=== PATIENT | male | born 1935 | race Caucasian/White ===

== ENCOUNTER 2017-11-12 10:11 | Inpatient (IN) | payer OTHER, MEDICARE ==
[2017-11-12] MEDS: ASPIRIN 81 MG ENTERIC TAB PO (09:00)
[2017-11-12] MEDS: CLOPIDOGREL 75 MG TAB PO (09:00)
[~2017-11-12 10:11] MED LIST: amLODIPine 5 MG TAB PO
[2017-11-12 10:55] LABS: ABG BASE EXCESS -2.1 (-2.0-2.0); ABG HCO3 23.5 MEQ/L (22.0-26.0); ABG O2 SATURATION 97.5 % (95.0-99.0); ABG PARTIAL PRESSURE CO2 43.7 mmHg (35.0-45.0); ABG PARTIAL PRESSURE O2 103.1 mmHg (75.0-100.0); ABG STANDARD HCO3 22.7 MEQ/L (22.0-26.0); ABG TOTAL CO2 24.9 MEQ/L (23.0-31.0); ABG pH (ARTERIAL) 7.349 UNITS (7.350-7.450)
[2017-11-12 11:04] LABS: BASO # 0.1 10^3/uL (0.0-0.2); BASO % 0.5 % (0.0-1.0); EOS % 0.3 % (0.0-3.0); HEMOGLOBIN 11.3 g/dl (14.0-18.0); IMMATURE GRANULOCYTE # 0.1 10^3/uL (0-0); IMMATURE GRANULOCYTE % 0.7 % (0-0); LYMPH # 0.5 10^3/uL (1.5-4.5); LYMPH % 4.1 % (24.0-44.0); MEAN CORPUSCULAR HGB CONC 31.4 g/dl (32.0-36.5); MEAN CORPUSCULAR VOLUME 98.9 fl (80.0-96.0); MONO # 0.7 10^3/uL (0.0-0.8); MONO % 6.6 % (0.0-5.0); NEUTROPHILS # 9.5 10^3/uL (1.8-7.7); NEUTROPHILS % 87.8 % (36.0-66.0); PLATELET COUNT, AUTOMATED 245 10^3/uL (150-450); RED BLOOD COUNT 3.64 10^6/uL (4.30-6.10); RED CELL DISTRIBUTION WIDTH 15.5 % (11.5-14.5); WHITE BLOOD COUNT 10.9 10^3/uL (4.0-10.0)
[2017-11-12 11:15] LABS: INR 0.97
[2017-11-12 11:25] LABS: ALBUMIN 3.3 GM/DL (3.2-5.2); ALBUMIN/GLOBULIN RATIO 0.94 (1.00-1.93); ALKALINE PHOSPHATASE 67 U/L (45-117); ALT/SGPT 16 U/L (12-78); ANION GAP 8 MEQ/L (8-16); AST/SGOT 19 U/L (7-37); BILIRUBIN,DIRECT 0.3 MG/DL (0.0-0.2); BILIRUBIN,TOTAL 0.8 MG/DL (0.2-1.0); BLOOD UREA NITROGEN 18 MG/DL (7-18); CALCIUM LEVEL 8.7 MG/DL (8.8-10.2); CARBON DIOXIDE LEVEL 30 MEQ/L (21-32); CHLORIDE LEVEL 106 MEQ/L (98-107); CREATININE FOR GFR 1.23 MG/DL (0.70-1.30); GLOMERULAR FILTRATION RATE 59.7 (>35); GLUCOSE, FASTING 328 MG/DL (83-110); POTASSIUM SERUM 4.8 MEQ/L (3.5-5.1); SODIUM LEVEL 144 MEQ/L (136-145); TOTAL PROTEIN 6.8 GM/DL (6.4-8.2); TROPONIN I 0.05 NG/ML (< 0.10)
[2017-11-12 11:27] LABS: LACTIC ACID SEPSIS PROTOCOL 2.4 MMOL/L (0.4-2.0)
[2017-11-12 11:33] LABS: CK-MB VALUE MASS 2.1 NG/ML (0.0-3.6); CPK CREATINE PHOSPHOKINASE 78 U/L (39-308); MB/CK RELATIVE INDEX 2.69 (< OR =4); NT-PRO BNP 8765 PG/ML (<450)
[2017-11-12] MEDS ORDERED: ACETAMINOPHEN TAB 650MG DOSE (2X325MG) PO (13:45)
[2017-11-12] MEDS ORDERED: DEXTROSE 50% 50 ML SYRINGE IV (14:15)
[2017-11-12] MEDS ORDERED: GLUCAGON FOR INJ 1 MG VIAL (J1610) SC (14:15)
[2017-11-12] MEDS ORDERED: GLUCOSE 4 GM CHEW TABLET PO (14:15)
[2017-11-12] MEDS: VANCOMYCIN HCL 1,000 MG, VIAL MATE ADAPTER 1 EACH in D5W 250 ML IV (14:34)
[2017-11-12] MEDS ORDERED: HumaLOG INSULIN (NovoLOG) PER UNIT As Ordered (15:07)
[2017-11-12] MEDS ORDERED: ALBUTEROL SULFATE 2.5 MG/0.5 ML INH NEB SOLN As Ordered (15:08)
[2017-11-12] MEDS: HumaLOG INSULIN (NovoLOG) PER UNIT SC ×2 (15:10→17:30)
[2017-11-12 15:11] LABS: BEDSIDE GLUCOSE 275 MG/DL (83-110)
[2017-11-12] MEDS: ALBUTEROL SULFATE 2.5 MG/0.5 ML INH NEB SOLN INH (15:15)
[2017-11-12] MEDS ORDERED: LR 1,000 ML IV (15:15)
[2017-11-12] MEDS: PYRIDOSTIGMINE 60 MG TAB PO ×2 (16:00→22:04)
[2017-11-12] MEDS: LIDOCAINE 1% SDV INJ 30 ML VIAL As Ordered (16:14)
[2017-11-12] MEDS ORDERED: LIDOCAINE 2% INJ 100 MG/5 ML SDV (FOR ANES.) As Ordered (16:29)
[2017-11-12] MEDS ORDERED: PROPOFOL 200 MG/20 ML VIAL As Ordered ×2 (16:31→16:34)
[2017-11-12] MEDS: ISOVUE-300 61% 50ML VIAL (Q9967) As Ordered (17:00)
[2017-11-12] MEDS: HumuLIN (NovoLIN)70/30 INSULIN INJ PER UNIT SC (17:30)
[2017-11-12] MEDS: VANCOMYCIN 1000 MG/20 ML VIAL (J3370) As Ordered (17:35)
[2017-11-12] MEDS: MUPIROCIN 2% OINT 22 GM TUBE As Ordered (17:51)
[2017-11-12] MEDS: BACITRACIN OINT 30GM As Ordered (18:34)
[2017-11-12] MEDS: LR 1,000 ML IV (19:30)
[2017-11-12] MEDS ORDERED: ONDANSETRON 4MG/2ML VIAL (J2405) IV (19:30)
[2017-11-12] MEDS ORDERED: fentaNYL 100 MCG/2 ML INJECTION (J3010) IV (19:30)
[2017-11-12] MEDS: ASCORBIC ACID 250 MG TAB PO (22:04)
[2017-11-12] MEDS: LOSARTAN 50 MG TAB PO (22:04)
[2017-11-12 22:18] LABS: BEDSIDE GLUCOSE 129 MG/DL (83-110)
[2017-11-13 05:23] LABS: ANION GAP 6 MEQ/L (8-16); BLOOD UREA NITROGEN 23 MG/DL (7-18); CALCIUM LEVEL 8.4 MG/DL (8.8-10.2); CARBON DIOXIDE LEVEL 31 MEQ/L (21-32); CHLORIDE LEVEL 109 MEQ/L (98-107); GLOMERULAR FILTRATION RATE > 60.0 (>35); GLUCOSE, FASTING 194 MG/DL (83-110); POTASSIUM SERUM 4.3 MEQ/L (3.5-5.1); SODIUM LEVEL 146 MEQ/L (136-145)
[2017-11-13] MEDS: ASCORBIC ACID 250 MG TAB PO (09:07)
[2017-11-13] MEDS: CLOPIDOGREL 75 MG TAB PO (09:07)
[2017-11-13] MEDS: HumaLOG INSULIN (NovoLOG) PER UNIT SC ×3 (09:07→17:30)
[2017-11-13] MEDS: SPIRONOLACTONE 25 MG TAB PO (09:07)
[2017-11-13] MEDS: ASPIRIN 81 MG ENTERIC TAB PO (09:07)
[2017-11-13] MEDS: HumuLIN (NovoLIN)70/30 INSULIN INJ PER UNIT SC ×2 (09:07→18:00)
[2017-11-13] MEDS: PYRIDOSTIGMINE 60 MG TAB PO ×3 (09:07→20:04)
[2017-11-13] MEDS ORDERED: PROPOFOL 500 MG/50 ML VIAL As Ordered (09:57)
[2017-11-13] MEDS ORDERED: fentaNYL 100 MCG/2 ML INJECTION (J3010) As Ordered (09:57)
[2017-11-13] MEDS ORDERED: MIDAZOLAM INJ 2 MG/2 ML VIAL (J2250) As Ordered (09:57)
[2017-11-13 12:07] LABS: BEDSIDE GLUCOSE 211 MG/DL (83-110)
[2017-11-13] MEDS ORDERED: LISINOPRIL 10 MG TAB PO (13:45)
[2017-11-13] MEDS ORDERED: amLODIPine 5 MG TAB PO (13:45)
[2017-11-13] MEDS: CHLORTHALIDONE 12.5MG PER 1/2 TABLET PO (14:29)
[2017-11-13] MEDS: LISINOPRIL 10 MG TAB PO (14:30)
[2017-11-13] MEDS: amLODIPine 10 MG TAB PO (14:30)
[2017-11-13] MEDS: POLYVINYL ALCOHOL OPHTH SOLN 15 ML(LIQUITEARS) OU ×2 (16:32→20:04)
[2017-11-13 17:12] LABS: BEDSIDE GLUCOSE 111 MG/DL (83-110)
[2017-11-14] MEDS: HumaLOG INSULIN (NovoLOG) PER UNIT SC ×3 (08:10→17:30)
[2017-11-14 08:16] LABS: BEDSIDE GLUCOSE 84 MG/DL (83-110)
[2017-11-14] MEDS: ASPIRIN 81 MG ENTERIC TAB PO (09:32)
[2017-11-14] MEDS: CLOPIDOGREL 75 MG TAB PO (09:33)
[2017-11-14] MEDS: LISINOPRIL 10 MG TAB PO (09:33)
[2017-11-14] MEDS: amLODIPine 10 MG TAB PO (09:33)
[2017-11-14] MEDS: MECLIZINE 25 MG TABLET PO (09:33)
[2017-11-14] MEDS: CHLORTHALIDONE 12.5MG PER 1/2 TABLET PO (09:33)
[2017-11-14] MEDS: PYRIDOSTIGMINE 60 MG TAB PO ×3 (09:33→19:24)
[2017-11-14] MEDS: POLYVINYL ALCOHOL OPHTH SOLN 15 ML(LIQUITEARS) OU ×4 (09:34→19:23)
[2017-11-14] MEDS: HumuLIN (NovoLIN)70/30 INSULIN INJ PER UNIT SC ×2 (09:34→17:30)
[2017-11-14 11:50] LABS: BEDSIDE GLUCOSE 203 MG/DL (83-110)
[2017-11-14 17:16] LABS: BEDSIDE GLUCOSE 65 MG/DL (83-110)
[2017-11-15] MEDS: HumaLOG INSULIN (NovoLOG) PER UNIT SC ×3 (07:30→17:13)
[2017-11-15 07:31] LABS: BEDSIDE GLUCOSE 134 MG/DL (83-110)
[2017-11-15] MEDS: CLOPIDOGREL 75 MG TAB PO (10:10)
[2017-11-15] MEDS: LISINOPRIL 10 MG TAB PO (10:10)
[2017-11-15] MEDS: CHLORTHALIDONE 12.5MG PER 1/2 TABLET PO (10:10)
[2017-11-15] MEDS: PYRIDOSTIGMINE 60 MG TAB PO ×3 (10:11→20:05)
[2017-11-15] MEDS: amLODIPine 10 MG TAB PO (10:11)
[2017-11-15] MEDS: ASPIRIN 81 MG ENTERIC TAB PO (10:11)
[2017-11-15] MEDS: POLYVINYL ALCOHOL OPHTH SOLN 15 ML(LIQUITEARS) OU ×4 (10:13→20:05)
[2017-11-15] MEDS: HumuLIN (NovoLIN)70/30 INSULIN INJ PER UNIT SC ×2 (10:13→17:24)
[2017-11-15 12:22] LABS: BEDSIDE GLUCOSE 144 MG/DL (83-110)
[2017-11-15 17:19] LABS: BEDSIDE GLUCOSE 101 MG/DL (83-110)
[2017-11-16 06:50] LABS: BEDSIDE GLUCOSE 101 MG/DL (83-110)
[2017-11-16] MEDS: HumaLOG INSULIN (NovoLOG) PER UNIT SC ×3 (08:24→17:35)
[2017-11-16] MEDS: HumuLIN (NovoLIN)70/30 INSULIN INJ PER UNIT SC ×2 (08:24→17:35)
[2017-11-16] MEDS: ASPIRIN 81 MG ENTERIC TAB PO (08:25)
[2017-11-16] MEDS: CHLORTHALIDONE 12.5MG PER 1/2 TABLET PO (08:25)
[2017-11-16] MEDS: amLODIPine 10 MG TAB PO (08:25)
[2017-11-16] MEDS: PYRIDOSTIGMINE 60 MG TAB PO ×3 (08:25→20:48)
[2017-11-16] MEDS: POLYVINYL ALCOHOL OPHTH SOLN 15 ML(LIQUITEARS) OU ×4 (08:25→20:48)
[2017-11-16] MEDS: LISINOPRIL 10 MG TAB PO (08:25)
[2017-11-16] MEDS: CLOPIDOGREL 75 MG TAB PO (08:25)
[2017-11-16 11:48] LABS: BEDSIDE GLUCOSE 100 MG/DL (83-110)
[2017-11-16 20:27] LABS: BEDSIDE GLUCOSE 76 MG/DL (83-110)
[2017-11-17 03:12] LABS: BEDSIDE GLUCOSE 122 MG/DL (83-110)
[2017-11-17 08:12] LABS: BEDSIDE GLUCOSE 165 MG/DL (83-110)
[2017-11-17] MEDS: HumaLOG INSULIN (NovoLOG) PER UNIT SC (08:19)
[2017-11-17] MEDS: HumuLIN (NovoLIN)70/30 INSULIN INJ PER UNIT SC (08:20)
[2017-11-17 08:27] LABS: BEDSIDE GLUCOSE 115 MG/DL (83-110)
[2017-11-17] MEDS: PYRIDOSTIGMINE 60 MG TAB PO (09:16)
[2017-11-17] MEDS: LISINOPRIL 10 MG TAB PO (09:17)
[2017-11-17] MEDS: CHLORTHALIDONE 12.5MG PER 1/2 TABLET PO (09:17)
[2017-11-17] MEDS: CLOPIDOGREL 75 MG TAB PO (09:17)
[2017-11-17] MEDS: ASPIRIN 81 MG ENTERIC TAB PO (09:17)
[2017-11-17] MEDS: amLODIPine 10 MG TAB PO (09:17)
[2017-11-17] MEDS: POLYVINYL ALCOHOL OPHTH SOLN 15 ML(LIQUITEARS) OU (09:17)
[2017-11-17] MEDS: LOMOTIL 2.5MG/0.025MG TABLET PO (10:38)
== END 2017-11-17 12:15 | disposition home health service (06) | DRG 242 ==
LOC: M MS5PR 11-13 16:41 → M ED 10:11 → M ED INP 13:40 → M PCU 19:45
PROC: 0JH606Z Insertion of Pacemaker, Dual Chamber into Chest Subcutaneous Tissue and Fascia, Open Approach (ICD-10-PCS; principal; 2017-11-12 12:58)
PROC: 02HK3JZ Insertion of Pacemaker Lead into Right Ventricle, Percutaneous Approach (ICD-10-PCS; 2017-11-12 12:58)
PROC: 02H63JZ Insertion of Pacemaker Lead into Right Atrium, Percutaneous Approach (ICD-10-PCS; 2017-11-12 12:58)
DX: I44.2 Atrioventricular block, complete (principal); I50.33 Acute on chronic diastolic (congestive) heart failure; I11.0 Hypertensive heart disease with heart failure; E78.5 Hyperlipidemia, unspecified; E11.40 Type 2 diabetes mellitus with diabetic neuropathy, unspecified; G70.00 Myasthenia gravis without (acute) exacerbation; L57.0 Actinic keratosis; E53.8 Deficiency of other specified B group vitamins; E87.6 Hypokalemia; N39.3 Stress incontinence (female) (male); H26.9 Unspecified cataract; E66.3 Overweight; Z87.891 Personal history of nicotine dependence; Z85.46 Personal history of malignant neoplasm of prostate; Z79.82 Long term (current) use of aspirin; Z79.4 Long term (current) use of insulin; Z95.2 Presence of prosthetic heart valve; Z85.828 Personal history of other malignant neoplasm of skin; Z79.899 Other long term (current) drug therapy; Z68.27 Body mass index [BMI] 27.0-27.9, adult

== ENCOUNTER 2017-12-06 09:49 | Inpatient (IN) | payer OTHER, MEDICARE ==
[~2017-12-06 09:49] MED LIST changes: +LEVEMIR (INSULIN DETEMIR) 1 UNITS/0.01ML SC; -amLODIPine 5 MG TAB PO
[2017-12-06 10:55] LABS: BASO # 0.1 10^3/uL (0.0-0.2); BASO % 0.3 % (0.0-1.0); EOS # 0.3 10^3/uL (0.0-0.50); EOS % 2.2 % (0.0-3.0); HEMATOCRIT 35.6 % (42.0-52.0); HEMOGLOBIN 11.4 g/dl (14.0-18.0); IMMATURE GRANULOCYTE # 0.1 10^3/uL (0-0); IMMATURE GRANULOCYTE % 0.5 % (0-0); LYMPH # 0.7 10^3/uL (1.5-4.5); LYMPH % 4.6 % (24.0-44.0); MEAN CORPUSCULAR HEMOGLOBIN 30.1 pg (27.0-33.0); MEAN CORPUSCULAR VOLUME 93.9 fl (80.0-96.0); MONO # 1.1 10^3/uL (0.0-0.8); MONO % 7.1 % (0.0-5.0); NEUTROPHILS # 12.5 10^3/uL (1.8-7.7); NEUTROPHILS % 85.3 % (36.0-66.0); PLATELET COUNT, AUTOMATED 293 10^3/uL (150-450); RED BLOOD COUNT 3.79 10^6/uL (4.30-6.10); RED CELL DISTRIBUTION WIDTH 14.1 % (11.5-14.5); WHITE BLOOD COUNT 14.7 10^3/uL (4.0-10.0)
[2017-12-06 11:07] LABS: ANION GAP 7 MEQ/L (8-16); BLOOD UREA NITROGEN 28 MG/DL (7-18); CALCIUM LEVEL 9.5 MG/DL (8.8-10.2); CARBON DIOXIDE LEVEL 33 MEQ/L (21-32); CHLORIDE LEVEL 99 MEQ/L (98-107); CPK CREATINE PHOSPHOKINASE 62 U/L (39-308); CREATININE FOR GFR 1.63 MG/DL (0.70-1.30); GLOMERULAR FILTRATION RATE 43.1 (>35); POTASSIUM SERUM 4.3 MEQ/L (3.5-5.1); SODIUM LEVEL 139 MEQ/L (136-145); TROPONIN I < 0.02 NG/ML (< 0.10)
[2017-12-06 11:13] LABS: CK-MB VALUE MASS 1.7 NG/ML (0.0-3.6); MB/CK RELATIVE INDEX 2.74 (< OR =4); NT-PRO BNP 1943 PG/ML (<450); THYROID STIMULATING HORMONE 0.551 uIU/ML (0.358-3.740)
[2017-12-06 11:25] LABS: GLUCOSE, FASTING 487 MG/DL (83-110)
[2017-12-06 11:33] LABS: ABG BASE EXCESS 5.5 (-2.0-2.0); ABG HCO3 30.4 MEQ/L (22.0-26.0); ABG O2 SATURATION 92.6 % (95.0-99.0); ABG PARTIAL PRESSURE CO2 45.9 mmHg (35.0-45.0); ABG PARTIAL PRESSURE O2 63.3 mmHg (75.0-100.0); ABG STANDARD HCO3 29.3 MEQ/L (22.0-26.0); ABG TOTAL CO2 31.8 MEQ/L (23.0-31.0); ABG pH (ARTERIAL) 7.439 UNITS (7.350-7.450)
[2017-12-06] MEDS: HumuLIN R (REGULAR) INSULIN (NovoLIN R) **100U/ML** PER UNIT SC (12:19)
[2017-12-06 12:22] LABS: BEDSIDE GLUCOSE 512 MG/DL (83-110)
[2017-12-06 13:17] LABS: LACTIC ACID SEPSIS PROTOCOL 2.1 MMOL/L (0.4-2.0)
[2017-12-06] MEDS: AZITHROMYCIN INJ 500 MG, VIAL MATE ADAPTER 1 EACH in D5W 250 ML IV (14:03)
[2017-12-06] MEDS ORDERED: ONDANSETRON 4MG/2ML VIAL (J2405) IV (14:30)
[2017-12-06] MEDS: NS 1,000 ML IV (14:55)
[2017-12-06] MEDS: CEFTRIAXONE SOD 2 GM in APPROPRIATE DILUENT 1 EA IV (14:55)
[2017-12-06] MEDS ORDERED: DEXTROSE 50% 50 ML SYRINGE IV (15:00)
[2017-12-06] MEDS ORDERED: GLUCAGON FOR INJ 1 MG VIAL (J1610) SC (15:00)
[2017-12-06] MEDS ORDERED: GLUCOSE 4 GM CHEW TABLET PO (15:00)
[2017-12-06] MEDS: LEVEMIR (INSULIN DETEMIR) 1 UNITS/0.01ML SC (15:04)
[2017-12-06 15:15] LABS: BEDSIDE GLUCOSE 471 MG/DL (83-110)
[2017-12-06] MEDS ORDERED: IPRATROPIUM 0.5MG/ALBUTEROL 2.5MG INH SOL UD 3ML (DUONEB)(J7620) NEB (15:45)
[2017-12-06] MEDS: PYRIDOSTIGMINE 60 MG TAB PO ×2 (16:00→20:13)
[2017-12-06 16:44] LABS: BEDSIDE GLUCOSE 357 MG/DL (83-110)
[2017-12-06] MEDS ORDERED: POLYVINYL ALCOHOL OPHTH SOLN 15 ML(LIQUITEARS) OU (17:00)
[2017-12-06 17:10] LABS: ESTIMATED AVERAGE GLUCOSE 194 MG/DL (60-110); HEMOGLOBIN A1c 8.4 %
[2017-12-06] MEDS: MECLIZINE 25 MG TABLET PO (18:24)
[2017-12-06] MEDS: amLODIPine 5 MG TAB PO (18:24)
[2017-12-06] MEDS: ASPIRIN 81 MG ENTERIC TAB PO (18:24)
[2017-12-06] MEDS: CLOPIDOGREL 75 MG TAB PO (18:25)
[2017-12-06] MEDS: HumaLOG INSULIN (NovoLOG) PER UNIT SC ×2 (18:27→20:13)
[2017-12-06] MEDS: VANCOMYCIN HCL 1,000 MG, VIAL MATE ADAPTER 1 EACH in D5W 250 ML IV ×2 (18:29→19:51)
[2017-12-06] MEDS: NYSTATIN 500,000 U/5 ML SUSP UDC SS ×3 (18:30→20:39)
[2017-12-06 20:05] LABS: CPK CREATINE PHOSPHOKINASE 69 U/L (39-308); TROPONIN I < 0.02 NG/ML (< 0.10)
[2017-12-06 20:06] LABS: ALBUMIN 2.8 GM/DL (3.2-5.2); ALBUMIN/GLOBULIN RATIO 0.57 (1.00-1.93); ALKALINE PHOSPHATASE 91 U/L (45-117); ALT/SGPT 10 U/L (12-78); ANION GAP 4 MEQ/L (8-16); AST/SGOT 10 U/L (7-37); BILIRUBIN,TOTAL 0.2 MG/DL (0.2-1.0); BLOOD UREA NITROGEN 30 MG/DL (7-18); CALCIUM LEVEL 9.6 MG/DL (8.8-10.2); CARBON DIOXIDE LEVEL 34 MEQ/L (21-32); CHLORIDE LEVEL 102 MEQ/L (98-107); CK-MB VALUE MASS 1.3 NG/ML (0.0-3.6); CREATININE FOR GFR 1.56 MG/DL (0.70-1.30); GLOMERULAR FILTRATION RATE 45.4 (>35); GLUCOSE, FASTING 305 MG/DL (70-100); MB/CK RELATIVE INDEX 1.88 (< OR =4); POTASSIUM SERUM 4.1 MEQ/L (3.5-5.1); SODIUM LEVEL 140 MEQ/L (136-145); TOTAL PROTEIN 7.7 GM/DL (6.4-8.2)
[2017-12-06 20:06] LABS: LACTIC ACID SEPSIS PROTOCOL 1.8 MMOL/L (0.4-2.0)
[2017-12-06 20:13] LABS: BEDSIDE GLUCOSE 402 MG/DL (83-110)
[2017-12-06] MEDS: POLYVINYL ALCOHOL OPHTH SOLN 15 ML(LIQUITEARS) OU (20:13)
[2017-12-06] MEDS: HEPARIN SOD (PORCINE) 5000 UNITS/ML VIAL SQ ×2 (20:14→20:39)
[2017-12-06] MEDS: IPRATROPIUM 0.5MG/ALBUTEROL 2.5MG INH SOL UD 3ML (DUONEB)(J7620) NEB (21:08)
[2017-12-07] MEDS: CEFEPIME HCL 2 GM in APPROPRIATE DILUENT 1 EA IV ×2 (02:21→15:16)
[2017-12-07 02:34] LABS: CK-MB VALUE MASS 1.7 NG/ML (0.0-3.6); CPK CREATINE PHOSPHOKINASE 70 U/L (39-308); MB/CK RELATIVE INDEX 2.42 (< OR =4); TROPONIN I < 0.02 NG/ML (< 0.10)
[2017-12-07] MEDS: IPRATROPIUM 0.5MG/ALBUTEROL 2.5MG INH SOL UD 3ML (DUONEB)(J7620) NEB ×4 (03:59→20:35)
[2017-12-07 06:10] LABS: BASO % 0.3 % (0.0-1.0); EOS # 0.6 10^3/uL (0.0-0.50); HEMATOCRIT 33.9 % (42.0-52.0); HEMOGLOBIN 10.8 g/dl (14.0-18.0); IMMATURE GRANULOCYTE # 0.1 10^3/uL (0-0); IMMATURE GRANULOCYTE % 0.6 % (0-0); LYMPH % 8.9 % (24.0-44.0); MEAN CORPUSCULAR HEMOGLOBIN 29.9 pg (27.0-33.0); MEAN CORPUSCULAR HGB CONC 31.9 g/dl (32.0-36.5); MEAN CORPUSCULAR VOLUME 93.9 fl (80.0-96.0); MONO % 8.9 % (0.0-5.0); NEUTROPHILS # 8.9 10^3/uL (1.8-7.7); NEUTROPHILS % 76.3 % (36.0-66.0); PLATELET COUNT, AUTOMATED 275 10^3/uL (150-450); RED BLOOD COUNT 3.61 10^6/uL (4.30-6.10); RED CELL DISTRIBUTION WIDTH 14.2 % (11.5-14.5); WHITE BLOOD COUNT 11.7 10^3/uL (4.0-10.0)
[2017-12-07 06:37] LABS: ALBUMIN 2.5 GM/DL (3.2-5.2); ALBUMIN/GLOBULIN RATIO 0.54 (1.00-1.93); ALKALINE PHOSPHATASE 79 U/L (45-117); ALT/SGPT 10 U/L (12-78); ANION GAP 7 MEQ/L (8-16); AST/SGOT 10 U/L (7-37); BILIRUBIN,TOTAL 0.4 MG/DL (0.2-1.0); BLOOD UREA NITROGEN 32 MG/DL (7-18); C REACTIVE PROTEIN QUANTITATIV 8.05 MG/DL (0.00-0.30); CALCIUM LEVEL 9.1 MG/DL (8.8-10.2); CARBON DIOXIDE LEVEL 31 MEQ/L (21-32); CHLORIDE LEVEL 102 MEQ/L (98-107); CREATININE FOR GFR 1.52 MG/DL (0.70-1.30); GLOMERULAR FILTRATION RATE 46.7 (>35); GLUCOSE, FASTING 174 MG/DL (70-100); POTASSIUM SERUM 3.8 MEQ/L (3.5-5.1); SODIUM LEVEL 140 MEQ/L (136-145); TOTAL PROTEIN 7.1 GM/DL (6.4-8.2)
[2017-12-07] MEDS: HEPARIN SOD (PORCINE) 5000 UNITS/ML VIAL SQ ×2 (09:00→21:47)
[2017-12-07] MEDS ORDERED: LEVEMIR (INSULIN DETEMIR) 1 UNITS/0.01ML SC (09:00)
[2017-12-07] MEDS: VANCOMYCIN HCL 1,000 MG, VIAL MATE ADAPTER 1 EACH in D5W 250 ML IV (09:05)
[2017-12-07] MEDS: LEVEMIR (INSULIN DETEMIR) 1 UNITS/0.01ML SC (09:06)
[2017-12-07] MEDS: POLYVINYL ALCOHOL OPHTH SOLN 15 ML(LIQUITEARS) OU ×4 (09:06→21:47)
[2017-12-07] MEDS: HumaLOG INSULIN (NovoLOG) PER UNIT SC ×4 (09:06→21:00)
[2017-12-07] MEDS: PYRIDOSTIGMINE 60 MG TAB PO ×3 (09:07→21:47)
[2017-12-07] MEDS: CLOPIDOGREL 75 MG TAB PO (09:07)
[2017-12-07] MEDS: NYSTATIN 500,000 U/5 ML SUSP UDC SS ×4 (09:07→21:47)
[2017-12-07] MEDS: ASPIRIN 81 MG ENTERIC TAB PO (09:07)
[2017-12-07 10:26] LABS: ESTIMATED AVERAGE GLUCOSE 197 MG/DL (60-110); HEMOGLOBIN A1c 8.5 %
[2017-12-07 10:38] LABS: CK-MB VALUE MASS 1.4 NG/ML (0.0-3.6); CPK CREATINE PHOSPHOKINASE 53 U/L (39-308); MB/CK RELATIVE INDEX 2.64 (< OR =4); TROPONIN I < 0.02 NG/ML (< 0.10)
[2017-12-07 11:37] LABS: OSMOLALITY URINE 568 MOSM/KG (500-800)
[2017-12-07 12:02] LABS: CHLORIDE,RANDOM URINE 31 MEQ/L; SODIUM,RANDOM URINE 24 MEQ/L; TOTAL PROTEIN,RANDOM URINE 161.3 MG/DL (0.0-12.0)
[2017-12-07 13:23] LABS: BEDSIDE GLUCOSE 249 MG/DL (83-110)
[2017-12-07] MEDS: AZITHROMYCIN INJ 500 MG, VIAL MATE ADAPTER 1 EACH in D5W 250 ML IV (13:27)
[2017-12-07 17:02] LABS: BEDSIDE GLUCOSE 98 MG/DL (83-110)
[2017-12-07 21:08] LABS: BEDSIDE GLUCOSE 182 MG/DL (83-110)
[2017-12-07] MEDS: NS 1,000 ML IV (21:47)
[2017-12-08] MEDS: IPRATROPIUM 0.5MG/ALBUTEROL 2.5MG INH SOL UD 3ML (DUONEB)(J7620) NEB ×4 (02:00→21:25)
[2017-12-08] MEDS: CEFEPIME HCL 2 GM in APPROPRIATE DILUENT 1 EA IV ×2 (02:20→14:31)
[2017-12-08 06:33] LABS: BASO % 0.5 % (0.0-1.0); EOS # 0.5 10^3/uL (0.0-0.50); EOS % 6.6 % (0.0-3.0); HEMATOCRIT 32.4 % (42.0-52.0); HEMOGLOBIN 10.4 g/dl (14.0-18.0); IMMATURE GRANULOCYTE # 0.1 10^3/uL (0-0); IMMATURE GRANULOCYTE % 0.9 % (0-0); LYMPH # 0.9 10^3/uL (1.5-4.5); LYMPH % 11.1 % (24.0-44.0); MEAN CORPUSCULAR HEMOGLOBIN 30.2 pg (27.0-33.0); MEAN CORPUSCULAR HGB CONC 32.1 g/dl (32.0-36.5); MEAN CORPUSCULAR VOLUME 94.2 fl (80.0-96.0); MONO # 0.7 10^3/uL (0.0-0.8); MONO % 8.3 % (0.0-5.0); NEUTROPHILS # 5.8 10^3/uL (1.8-7.7); NEUTROPHILS % 72.6 % (36.0-66.0); PLATELET COUNT, AUTOMATED 249 10^3/uL (150-450); RED BLOOD COUNT 3.44 10^6/uL (4.30-6.10); WHITE BLOOD COUNT 7.9 10^3/uL (4.0-10.0)
[2017-12-08 06:54] LABS: ALBUMIN 2.2 GM/DL (3.2-5.2); ALBUMIN/GLOBULIN RATIO 0.51 (1.00-1.93); ALKALINE PHOSPHATASE 72 U/L (45-117); ALT/SGPT 9 U/L (12-78); ANION GAP 5 MEQ/L (8-16); AST/SGOT 11 U/L (7-37); BILIRUBIN,TOTAL 0.4 MG/DL (0.2-1.0); BLOOD UREA NITROGEN 29 MG/DL (7-18); C REACTIVE PROTEIN QUANTITATIV 5.11 MG/DL (0.00-0.30); CALCIUM LEVEL 8.7 MG/DL (8.8-10.2); CARBON DIOXIDE LEVEL 28 MEQ/L (21-32); CHLORIDE LEVEL 107 MEQ/L (98-107); CREATININE FOR GFR 1.19 MG/DL (0.70-1.30); GLOMERULAR FILTRATION RATE > 60.0 (>35); GLUCOSE, FASTING 226 MG/DL (70-100); MAGNESIUM LEVEL 1.9 MG/DL (1.8-2.4); POTASSIUM SERUM 3.8 MEQ/L (3.5-5.1); SODIUM LEVEL 140 MEQ/L (136-145); TOTAL PROTEIN 6.5 GM/DL (6.4-8.2)
[2017-12-08] MEDS: NYSTATIN 500,000 U/5 ML SUSP UDC SS ×4 (08:32→21:09)
[2017-12-08] MEDS: HumaLOG INSULIN (NovoLOG) PER UNIT SC ×4 (08:33→21:10)
[2017-12-08] MEDS: CLOPIDOGREL 75 MG TAB PO (08:33)
[2017-12-08] MEDS: ASPIRIN 81 MG ENTERIC TAB PO (08:33)
[2017-12-08] MEDS: HEPARIN SOD (PORCINE) 5000 UNITS/ML VIAL SQ ×2 (08:33→21:10)
[2017-12-08] MEDS: VANCOMYCIN HCL 1,000 MG, VIAL MATE ADAPTER 1 EACH in D5W 250 ML IV (08:34)
[2017-12-08] MEDS: LEVEMIR (INSULIN DETEMIR) 1 UNITS/0.01ML SC (08:34)
[2017-12-08] MEDS: POLYVINYL ALCOHOL OPHTH SOLN 15 ML(LIQUITEARS) OU ×4 (08:35→21:10)
[2017-12-08] MEDS: PYRIDOSTIGMINE 60 MG TAB PO ×3 (08:49→21:09)
[2017-12-08] MEDS: NS 1,000 ML IV (10:32)
[2017-12-08] MEDS: LOPERAMIDE 2 MG CAP PO ×2 (10:32→14:33)
[2017-12-08 12:19] LABS: BEDSIDE GLUCOSE 417 MG/DL (83-110)
[2017-12-08] MEDS ORDERED: SLF 3 ML SYR IV (14:30)
[2017-12-08 17:12] LABS: BEDSIDE GLUCOSE 118 MG/DL (83-110)
[2017-12-08] MEDS: SLF 3 ML SYR IV (21:10)
[2017-12-08 22:05] LABS: BEDSIDE GLUCOSE 278 MG/DL (83-110)
[2017-12-09] MEDS: IPRATROPIUM 0.5MG/ALBUTEROL 2.5MG INH SOL UD 3ML (DUONEB)(J7620) NEB ×4 (01:14→21:08)
[2017-12-09] MEDS: CEFEPIME HCL 2 GM in APPROPRIATE DILUENT 1 EA IV (03:19)
[2017-12-09] MEDS: SLF 3 ML SYR IV ×3 (04:24→22:49)
[2017-12-09] MEDS: ACETAMINOPHEN TAB 650MG DOSE (2X325MG) PO (05:19)
[2017-12-09 07:24] LABS: BASO % 0.6 % (0.0-1.0); EOS # 0.5 10^3/uL (0.0-0.50); IMMATURE GRANULOCYTE # 0.1 10^3/uL (0-0); IMMATURE GRANULOCYTE % 0.8 % (0-0); LYMPH # 0.9 10^3/uL (1.5-4.5); LYMPH % 12.2 % (24.0-44.0); MEAN CORPUSCULAR HEMOGLOBIN 30.1 pg (27.0-33.0); MEAN CORPUSCULAR HGB CONC 32.3 g/dl (32.0-36.5); MEAN CORPUSCULAR VOLUME 93.4 fl (80.0-96.0); MONO # 0.7 10^3/uL (0.0-0.8); MONO % 9.4 % (0.0-5.0); PLATELET COUNT, AUTOMATED 235 10^3/uL (150-450); RED BLOOD COUNT 3.32 10^6/uL (4.30-6.10); RED CELL DISTRIBUTION WIDTH 13.9 % (11.5-14.5); WHITE BLOOD COUNT 7.1 10^3/uL (4.0-10.0)
[2017-12-09 07:59] LABS: ALBUMIN 2.2 GM/DL (3.2-5.2); ALBUMIN/GLOBULIN RATIO 0.54 (1.00-1.93); ALKALINE PHOSPHATASE 71 U/L (45-117); ALT/SGPT 12 U/L (12-78); ANION GAP 4 MEQ/L (8-16); AST/SGOT 12 U/L (7-37); BILIRUBIN,TOTAL 0.3 MG/DL (0.2-1.0); BLOOD UREA NITROGEN 17 MG/DL (7-18); C REACTIVE PROTEIN QUANTITATIV 3.46 MG/DL (0.00-0.30); CALCIUM LEVEL 8.4 MG/DL (8.8-10.2); CARBON DIOXIDE LEVEL 30 MEQ/L (21-32); CHLORIDE LEVEL 109 MEQ/L (98-107); CREATININE FOR GFR 0.95 MG/DL (0.70-1.30); GLOMERULAR FILTRATION RATE > 60.0 (>35); GLUCOSE, FASTING 139 MG/DL (70-100); MAGNESIUM LEVEL 1.8 MG/DL (1.8-2.4); POTASSIUM SERUM 3.7 MEQ/L (3.5-5.1); SODIUM LEVEL 143 MEQ/L (136-145); TOTAL PROTEIN 6.3 GM/DL (6.4-8.2); VANCOMYCIN LEVEL TROUGH 17.2 UG/ML (10.0-20.0)
[2017-12-09] MEDS: POLYVINYL ALCOHOL OPHTH SOLN 15 ML(LIQUITEARS) OU ×4 (08:42→22:48)
[2017-12-09] MEDS: VANCOMYCIN HCL 1,000 MG, VIAL MATE ADAPTER 1 EACH in D5W 250 ML IV (08:42)
[2017-12-09] MEDS: PYRIDOSTIGMINE 60 MG TAB PO ×3 (08:43→22:48)
[2017-12-09] MEDS: HEPARIN SOD (PORCINE) 5000 UNITS/ML VIAL SQ ×2 (08:43→22:56)
[2017-12-09] MEDS: CLOPIDOGREL 75 MG TAB PO (08:43)
[2017-12-09] MEDS: NYSTATIN 500,000 U/5 ML SUSP UDC SS ×4 (08:43→22:48)
[2017-12-09] MEDS: ASPIRIN 81 MG ENTERIC TAB PO (08:43)
[2017-12-09] MEDS: LEVEMIR (INSULIN DETEMIR) 1 UNITS/0.01ML SC (08:44)
[2017-12-09] MEDS: HumaLOG INSULIN (NovoLOG) PER UNIT SC ×4 (08:44→21:00)
[2017-12-09 11:56] LABS: BEDSIDE GLUCOSE 240 MG/DL (83-110)
[2017-12-09] MEDS: LOPERAMIDE 2 MG CAP PO ×2 (11:57→17:45)
[2017-12-09] MEDS: LevoFLOXacin 500 MG TABLET PO (14:55)
[2017-12-09] MEDS: amLODIPine 5 MG TAB PO (14:55)
[2017-12-09] MEDS: LISINOPRIL 5 MG TAB PO (14:56)
[2017-12-09 17:48] LABS: BEDSIDE GLUCOSE 74 MG/DL (83-110)
[2017-12-09 21:42] LABS: BEDSIDE GLUCOSE 236 MG/DL (83-110)
[2017-12-10] MEDS: IPRATROPIUM 0.5MG/ALBUTEROL 2.5MG INH SOL UD 3ML (DUONEB)(J7620) NEB ×3 (02:00→13:22)
[2017-12-10] MEDS: SLF 3 ML SYR IV ×3 (05:37→21:06)
[2017-12-10] MEDS: LevoFLOXacin 500 MG TABLET PO (05:37)
[2017-12-10 06:01] LABS: BASO # 0.1 10^3/uL (0.0-0.2); BASO % 0.6 % (0.0-1.0); EOS # 0.4 10^3/uL (0.0-0.50); EOS % 5.2 % (0.0-3.0); HEMATOCRIT 35.6 % (42.0-52.0); HEMOGLOBIN 11.5 g/dl (14.0-18.0); IMMATURE GRANULOCYTE # 0.1 10^3/uL (0-0); IMMATURE GRANULOCYTE % 1.2 % (0-0); LYMPH # 1.1 10^3/uL (1.5-4.5); LYMPH % 13.2 % (24.0-44.0); MEAN CORPUSCULAR HEMOGLOBIN 29.7 pg (27.0-33.0); MEAN CORPUSCULAR HGB CONC 32.3 g/dl (32.0-36.5); MONO # 0.9 10^3/uL (0.0-0.8); MONO % 11.5 % (0.0-5.0); NEUTROPHILS # 5.5 10^3/uL (1.8-7.7); NEUTROPHILS % 68.3 % (36.0-66.0); PLATELET COUNT, AUTOMATED 263 10^3/uL (150-450); RED BLOOD COUNT 3.87 10^6/uL (4.30-6.10)
[2017-12-10 06:20] LABS: ALBUMIN 2.3 GM/DL (3.2-5.2); ALKALINE PHOSPHATASE 73 U/L (45-117); ALT/SGPT 12 U/L (12-78); ANION GAP 7 MEQ/L (8-16); AST/SGOT 15 U/L (7-37); BILIRUBIN,TOTAL 0.3 MG/DL (0.2-1.0); BLOOD UREA NITROGEN 12 MG/DL (7-18); C REACTIVE PROTEIN QUANTITATIV 3.04 MG/DL (0.00-0.30); CARBON DIOXIDE LEVEL 29 MEQ/L (21-32); CHLORIDE LEVEL 108 MEQ/L (98-107); CREATININE FOR GFR 0.95 MG/DL (0.70-1.30); GLOMERULAR FILTRATION RATE > 60.0 (>35); GLUCOSE, FASTING 121 MG/DL (70-100); MAGNESIUM LEVEL 1.9 MG/DL (1.8-2.4); POTASSIUM SERUM 3.7 MEQ/L (3.5-5.1); SODIUM LEVEL 144 MEQ/L (136-145); TOTAL PROTEIN 6.9 GM/DL (6.4-8.2)
[2017-12-10] MEDS: HumaLOG INSULIN (NovoLOG) PER UNIT SC ×4 (07:30→21:00)
[2017-12-10] MEDS: ASPIRIN 81 MG ENTERIC TAB PO (09:07)
[2017-12-10] MEDS: LISINOPRIL 5 MG TAB PO (09:08)
[2017-12-10] MEDS: CLOPIDOGREL 75 MG TAB PO (09:08)
[2017-12-10] MEDS: NYSTATIN 500,000 U/5 ML SUSP UDC SS ×4 (09:09→21:06)
[2017-12-10] MEDS: LEVEMIR (INSULIN DETEMIR) 1 UNITS/0.01ML SC (09:09)
[2017-12-10] MEDS: PYRIDOSTIGMINE 60 MG TAB PO ×3 (09:09→21:06)
[2017-12-10] MEDS: amLODIPine 5 MG TAB PO (09:09)
[2017-12-10] MEDS: HEPARIN SOD (PORCINE) 5000 UNITS/ML VIAL SQ ×2 (09:09→21:00)
[2017-12-10] MEDS: POLYVINYL ALCOHOL OPHTH SOLN 15 ML(LIQUITEARS) OU ×4 (09:10→21:00)
[2017-12-10 16:39] LABS: BEDSIDE GLUCOSE 151 MG/DL (83-110)
[2017-12-10 20:55] LABS: BEDSIDE GLUCOSE 159 MG/DL (83-110)
[2017-12-11] MEDS: SLF 3 ML SYR IV (05:36)
[2017-12-11] MEDS: LevoFLOXacin 500 MG TABLET PO (06:01)
[2017-12-11 06:28] LABS: BASO % 0.4 % (0.0-1.0); EOS # 0.4 10^3/uL (0.0-0.50); EOS % 4.1 % (0.0-3.0); HEMATOCRIT 33.3 % (42.0-52.0); HEMOGLOBIN 10.8 g/dl (14.0-18.0); IMMATURE GRANULOCYTE # 0.1 10^3/uL (0-0); IMMATURE GRANULOCYTE % 1.2 % (0-0); LYMPH # 0.9 10^3/uL (1.5-4.5); LYMPH % 11.1 % (24.0-44.0); MEAN CORPUSCULAR HEMOGLOBIN 29.8 pg (27.0-33.0); MEAN CORPUSCULAR HGB CONC 32.4 g/dl (32.0-36.5); MONO # 0.9 10^3/uL (0.0-0.8); MONO % 10.4 % (0.0-5.0); NEUTROPHILS # 6.2 10^3/uL (1.8-7.7); NEUTROPHILS % 72.8 % (36.0-66.0); PLATELET COUNT, AUTOMATED 228 10^3/uL (150-450); RED BLOOD COUNT 3.62 10^6/uL (4.30-6.10); RED CELL DISTRIBUTION WIDTH 13.9 % (11.5-14.5); WHITE BLOOD COUNT 8.5 10^3/uL (4.0-10.0)
[2017-12-11 06:52] LABS: ALBUMIN 2.3 GM/DL (3.2-5.2); ALBUMIN/GLOBULIN RATIO 0.55 (1.00-1.93); ALKALINE PHOSPHATASE 73 U/L (45-117); ALT/SGPT 13 U/L (12-78); ANION GAP 4 MEQ/L (8-16); AST/SGOT 21 U/L (7-37); BILIRUBIN,TOTAL 0.3 MG/DL (0.2-1.0); BLOOD UREA NITROGEN 13 MG/DL (7-18); C REACTIVE PROTEIN QUANTITATIV 2.82 MG/DL (0.00-0.30); CALCIUM LEVEL 8.9 MG/DL (8.8-10.2); CARBON DIOXIDE LEVEL 32 MEQ/L (21-32); CHLORIDE LEVEL 105 MEQ/L (98-107); CREATININE FOR GFR 0.97 MG/DL (0.70-1.30); GLOMERULAR FILTRATION RATE > 60.0 (>35); GLUCOSE, FASTING 143 MG/DL (70-100); POTASSIUM SERUM 3.5 MEQ/L (3.5-5.1); SODIUM LEVEL 141 MEQ/L (136-145); TOTAL PROTEIN 6.5 GM/DL (6.4-8.2)
[2017-12-11] MEDS: IPRATROPIUM 0.5MG/ALBUTEROL 2.5MG INH SOL UD 3ML (DUONEB)(J7620) NEB (07:29)
[2017-12-11] MEDS: NYSTATIN 500,000 U/5 ML SUSP UDC SS (08:48)
[2017-12-11] MEDS: HumaLOG INSULIN (NovoLOG) PER UNIT SC (08:49)
[2017-12-11] MEDS: LEVEMIR (INSULIN DETEMIR) 1 UNITS/0.01ML SC (08:49)
[2017-12-11] MEDS: PYRIDOSTIGMINE 60 MG TAB PO (08:50)
[2017-12-11] MEDS: HEPARIN SOD (PORCINE) 5000 UNITS/ML VIAL SQ (08:50)
[2017-12-11] MEDS: LISINOPRIL 5 MG TAB PO (08:50)
[2017-12-11] MEDS: amLODIPine 5 MG TAB PO (08:50)
[2017-12-11] MEDS: CLOPIDOGREL 75 MG TAB PO (08:50)
[2017-12-11] MEDS: ASPIRIN 81 MG ENTERIC TAB PO (08:50)
[2017-12-11] MEDS: POLYVINYL ALCOHOL OPHTH SOLN 15 ML(LIQUITEARS) OU (08:51)
== END 2017-12-11 10:35 | disposition home or self-care (01) | DRG 194 ==
LOC: M MS4PR 12-10 20:07 → M ED 09:49 → M ED INP 16:05 → M PCU 17:55
DX: J18.9 Pneumonia, unspecified organism (principal); I50.32 Chronic diastolic (congestive) heart failure; I13.0 Hypertensive heart and chronic kidney disease with heart failure and stage 1 through stage 4 chronic kidney disease, or unspecified chronic kidney disease; B37.0 Candidal stomatitis; E78.5 Hyperlipidemia, unspecified; G70.00 Myasthenia gravis without (acute) exacerbation; E11.40 Type 2 diabetes mellitus with diabetic neuropathy, unspecified; E53.8 Deficiency of other specified B group vitamins; N18.2 Chronic kidney disease, stage 2 (mild); N39.3 Stress incontinence (female) (male); Z85.46 Personal history of malignant neoplasm of prostate; Z85.828 Personal history of other malignant neoplasm of skin; Z95.2 Presence of prosthetic heart valve; Z95.0 Presence of cardiac pacemaker; Z87.891 Personal history of nicotine dependence; Z79.82 Long term (current) use of aspirin; Z79.4 Long term (current) use of insulin; Z79.899 Other long term (current) drug therapy; Z88.0 Allergy status to penicillin; Z91.013 Allergy to seafood; Y95 Nosocomial condition; Z79.02 Long term (current) use of antithrombotics/antiplatelets

== ENCOUNTER → 2018-03-29 | Outpatient (CLI) | payer OTHER | LOC: M CARPUL 10:02 | DX: I51.9 Heart disease, unspecified (principal) | CPT/HCPCS: 93306 ==

== ENCOUNTER → 2018-08-05 | Outpatient (CLI) | payer OTHER | LOC: M RAD 10:29 | DX: I65.23 Occlusion and stenosis of bilateral carotid arteries (principal) | CPT/HCPCS: 93880 ==

== ENCOUNTER → 2018-10-12 | Outpatient (REF) | payer OTHER ==
[2018-10-12 13:28] LABS: BASO # 0.1 10^3/uL (0.0-0.2); BASO % 0.5 % (0.0-1.0); EOS # 0.4 10^3/uL (0.0-0.50); EOS % 3.8 % (0.0-3.0); HEMATOCRIT 43.4 % (42.0-52.0); HEMOGLOBIN 13.4 g/dl (13.5-17.5); IMMATURE GRANULOCYTE % 0.4 % (0-3.0); LYMPH # 1.3 10^3/uL (1.5-4.5); LYMPH % 12.5 % (24.0-44.0); MEAN CORPUSCULAR HEMOGLOBIN 27.4 pg (27.0-33.0); MEAN CORPUSCULAR HGB CONC 30.9 g/dl (32.0-36.5); MEAN CORPUSCULAR VOLUME 88.8 fl (80.0-96.0); MONO # 0.7 10^3/uL (0.0-0.8); MONO % 6.8 % (0.0-5.0); NEUTROPHILS # 7.8 10^3/uL (1.8-7.7); PLATELET COUNT, AUTOMATED 247 10^3/uL (150-450); RED BLOOD COUNT 4.89 10^6/uL (4.30-6.10); RED CELL DISTRIBUTION WIDTH 14.2 % (11.5-14.5); WHITE BLOOD COUNT 10.2 10^3/uL (4.0-10.0)
[2018-10-12 14:03] LABS: ALBUMIN 3.7 GM/DL (3.2-5.2); ALBUMIN/GLOBULIN RATIO 0.97 (1.00-1.93); ALKALINE PHOSPHATASE 99 U/L (45-117); ALT/SGPT 30 U/L (12-78); ANION GAP 7 MEQ/L (8-16); AST/SGOT 19 U/L (7-37); BILIRUBIN,TOTAL 0.6 MG/DL (0.2-1.0); BLOOD UREA NITROGEN 20 MG/DL (7-18); CALCIUM LEVEL 9.2 MG/DL (8.8-10.2); CARBON DIOXIDE LEVEL 30 MEQ/L (21-32); CHLORIDE LEVEL 100 MEQ/L (98-107); CPK CREATINE PHOSPHOKINASE 157 U/L (39-308); CREATININE FOR GFR 1.23 MG/DL (0.70-1.30); FREE T4 1.12 NG/DL (0.76-1.46); GLOMERULAR FILTRATION RATE 59.7 (>35); GLUCOSE, FASTING 155 MG/DL (70-100); POTASSIUM SERUM 4.8 MEQ/L (3.5-5.1); RHEUMATOID FACTOR QUANT < 10.0 IU/ML (<15.0); SODIUM LEVEL 137 MEQ/L (136-145); TOTAL PROTEIN 7.5 GM/DL (6.4-8.2); VITAMIN B12 LEVEL 540 PG/ML
[2018-10-12 14:07] LABS: ERYTHROCYTE SEDIMENTATION RATE 28 mm/hr (0-20)
[2018-10-12 14:09] LABS: ESTIMATED AVERAGE GLUCOSE 235 MG/DL (60-110); HEMOGLOBIN A1c 9.8 %
[2018-10-19 08:06] LABS: ACETYLCHOLINE RCPTOR BINDING A 1.89 nmol/L (0.00-0.24); ALDOLASE 6.5 U/L (3.3-10.3); ANTINUCLEAR ANTIBODIES DIRECT Negative (Negative); Lyme Disease IgG/IgM Antibodie <0.91 ISR (0.00-0.90); Lyme Disease IgM Ab Quantitati <0.80 index (0.00-0.79); STRIATIONAL ANTIBODIES Negative (Neg:<1:40); VITAMIN B1 LEVEL WHOLE BLOOD 189.6 nmol/L (66.5-200.0); VITAMIN E(ALPHA TOCOPHEROL) 16.9 mg/L (9.0-29.0)
== END ==
LOC: M LABNEURO 11:16
DX: G62.81 Critical illness polyneuropathy (principal); E07.9 Disorder of thyroid, unspecified; E11.9 Type 2 diabetes mellitus without complications; Z11.8 Encounter for screening for other infectious and parasitic diseases
CPT/HCPCS: 82550

== ENCOUNTER → 2018-11-23 | Outpatient (CLI) | payer OTHER ==
[~2018-11-23] MED LIST changes: +AMLO10TA5 PO; +ASPI81TA24 PO; +ASPI81TA85 PO; +INSULANT SC; +LEVA1TAB2 PO; -LEVEMIR (INSULIN DETEMIR) 1 UNITS/0.01ML SC; +LISI-542 PO; +LISI10TA4 PO; +MECL-86 PO; +NATU99.0 OU; +NOVO1INJ4 SC; +PLAV1TAB2 PO; +PYRI60TA2 PO; +TEAR1SOL3 OU; +WAL-100S PO
--- NOTE | 2018-11-23 15:13 | REP ---
CT CERVICAL SPINE WITHOUT CONTRAST: HISTORY: Spinal stenosis. There is no acute fracture. Disc bulges are present at the C2-3 through C4-5 levels. Disc bulges with associated osteophyte formation are present at the C5-6 and C6-7 levels. There is minimal to moderate narrowing of the spinal canal. Uncinate process and/or facet hypertrophy are present at the C2-3 through C7-T1 levels. These findings produce minimal to severe narrowing of the neural foramina. The C4-5 through C7-T1 intervertebral discs are decreased in height consistent with disc degeneration. There are 2 mm of anterior subluxation of C4 on C5. IMPRESSION: There is cervical spondylosis at the C2-3 through C7-T1 levels. Electronically Signed by Jose Weiss MD 11/23/2018 03:15 P
--- NOTE | 2018-11-23 15:44 | REP ---
CT LUMBAR SPINE WITHOUT CONTRAST: HISTORY: Spinal stenosis. A diffuse disc bulge is present at the L1-2 level. There is hypertrophy of the ligamenta flava and the posterior articulating facets. These findings produce minimal central canal stenosis. The L1 nerves exit the neural foramina without compression. A diffuse disc bulge is present at the L2-3 level. There is hypertrophy of the ligamenta flava and posterior articulating facets. These findings produce mild central canal stenosis. The L2 nerves exit the neural foramina without compression. A diffuse disc bulge and small right paracentral and intraforaminal disc extrusion are present at the L3-4 level. There is hypertrophy of the ligamenta flava and posterior articulating facets. These findings produce moderate central canal stenosis. There is compression of the L3 nerves in the neural foramina. A diffuse disc bulge is present at the L4-5 level. There is hypertrophy of the ligamenta flava and posterior articulating facets. These findings produce severe central canal stenosis. There is compression of the L4 nerves in the neural foramina. A diffuse disc bulge is present at the L5-S1 level. There is minimal compression of the thecal sac. There is hypertrophy of the posterior articulating facets. There is compression of the left L5 nerve in the neural foramen. The right L5 nerve exits the neural foramen without compression. The lumbar intervertebral discs are decreased in height. A vacuum phenomenon is present at the L1-2 through L5-S1 levels. These findings are consistent with disc degeneration. There is no subluxation. IMPRESSION:1. Minimal central canal stenosis at the L1-2 level secondary to disc bulge, ligamentous and facet hypertrophy. 2. Mild central canal stenosis at the L2-3 level secondary to disc bulge, ligamentous and facet hypertrophy. 3. Moderate central canal stenosis at the L3-4 level secondary to disc bulge, disc extrusion, ligamentous and facet hypertrophy. There is compression of the right L3 nerves in the neural foramina. 4. Severe central canal stenosis at the L4-5 level secondary to disc bulge, ligamentous and facet hypertrophy. There is compression of the L4 nerves in the neural foramina. 5. Diffuse disc bulge at the L5-S1 level with minimal thecal sac compression. There is compression of the left L5 nerve in the neural foramen. Electronically Signed by Jose Weiss MD 11/23/2018 04:11 P
--- NOTE | 2018-11-24 05:04 | REP ---
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 Technique: Axial noncontrast images from the thoracic inlet to the upper abdomen with coronal and sagittal re-formations. Comparison: None. Findings: The bilateral lung mares are relatively well aerated, symmetric and clear. Minimal age-related interstitial changes are noted without acute consolidation, significant nodule or mass lesion. No pleural effusion. No pneumothorax. Tracheobronchial tree is patent. No obvious axillary, hilar, or mediastinal adenopathy is appreciated. Extensive atherosclerotic changes to the thoracic aorta and coronary arteries noted along with evidence for prior aortic valve repair and dual lead pacemaker. No cardiomegaly or pericardial effusion. No mediastinal mass lesion appreciated. No obvious thymic abnormality identified. Thyroid gland appears relatively normal. Limited upper abdomen demonstrates normal bilateral adrenal glands. Osseous structures including thoracic spine appear relatively normal for age. Impression: Chronic-appearing changes as detailed above. No acute mediastinal or pleuroparenchymal process. Specifically, no obvious mediastinal or thymic mass lesion. Electronically Signed by Jose Diaz MD 11/24/2018 04:55 A
== END ==
LOC: M RAD 14:24
PROVIDERS: ATTEND Physician Assistant
DX: C37 Malignant neoplasm of thymus (principal); M47.12 Other spondylosis with myelopathy, cervical region; M47.13 Other spondylosis with myelopathy, cervicothoracic region; M48.07 Spinal stenosis, lumbosacral region

== ENCOUNTER 2019-01-10 12:54 | Emergency (ER) | payer OTHER ==
[~2019-01-10] VITALS: Ht 177.8 cm; Wt 80.0 kg
[2019-01-10] MEDS ORDERED: FISH1000 PO (13:15)
[2019-01-10] MEDS ORDERED: BUPIVACAINE/EPIN 0.5% 30 ML VIAL IM ONE (13:45)
[2019-01-10] MEDS ORDERED: LIDOCAINE 1% MDV 20ML VIAL SC ONE (13:45)
[2019-01-10] MEDS ORDERED: ACET1TAB55 PO (14:34)
[2019-01-10] MEDS ORDERED: NORC1TAB4 PO (14:34)
[2019-01-10] MEDS ORDERED: NORCO, ANEXSIA 5/325MG TABLET (HYDROcodone/ACETAMINOPHEN) PO ONE (15:00)
[2019-01-10 15:05] VITALS: BP 148/80
== END 2019-01-10 15:23 | disposition home or self-care (01) ==
LOC: M ED 12:54
DX: M54.5 Low back pain (principal); M62.830 Muscle spasm of back; G70.01 Myasthenia gravis with (acute) exacerbation; R26.2 Difficulty in walking, not elsewhere classified; G62.9 Polyneuropathy, unspecified; E11.9 Type 2 diabetes mellitus without complications; I11.0 Hypertensive heart disease with heart failure; I50.30 Unspecified diastolic (congestive) heart failure; M48.00 Spinal stenosis, site unspecified; Z87.891 Personal history of nicotine dependence; Z85.46 Personal history of malignant neoplasm of prostate; Z88.0 Allergy status to penicillin; Z91.013 Allergy to seafood; Z79.899 Other long term (current) drug therapy; Z79.4 Long term (current) use of insulin; Z79.02 Long term (current) use of antithrombotics/antiplatelets; Z79.82 Long term (current) use of aspirin

== ENCOUNTER 2019-01-12 13:57 | Inpatient (IN) | payer OTHER ==
[~2019-01-12] VITALS: Ht 177.8 cm; Wt 79.0 kg
[~2019-01-12 13:57] MED LIST changes: +ACET1TAB55 PO; +FISH1000 PO; +NORC1TAB4 PO
[2019-01-12 14:38] LABS: HEMATOCRIT 44.4 % (42.0-52.0); HEMOGLOBIN 14.1 g/dl (13.5-17.5); MEAN CORPUSCULAR HEMOGLOBIN 27.9 pg (27.0-33.0); MEAN CORPUSCULAR HGB CONC 31.8 g/dl (32.0-36.5); MEAN CORPUSCULAR VOLUME 87.7 fl (80.0-96.0); PLATELET COUNT, AUTOMATED 329 10^3/uL (150-450); RED BLOOD COUNT 5.06 10^6/uL (4.30-6.10); WHITE BLOOD COUNT 14.5 10^3/uL (4.0-10.0)
--- NOTE | 2019-01-12 14:39 | REP ---
Clinical: COPD . Comparison: 12/06/2017 . Findings: The mediastinum and cardiac silhouette are stable and within normal limits for portable technique. Evidence for pacemaker and aortic valve repair. The lung mares demonstrate chronic stable changes consistent with COPD without acute consolidation, effusion, or pneumothorax. Skeletal structures are intact. Impression: No acute cardiopulmonary process appreciated. Electronically Signed by Jose Diaz MD 01/12/2019 02:31 P
[2019-01-12 14:59] LABS: BLOOD UREA NITROGEN 16 MG/DL (7-18); CALCIUM LEVEL 9.1 MG/DL (8.8-10.2); CARBON DIOXIDE LEVEL 33 MEQ/L (21-32); CHLORIDE LEVEL 102 MEQ/L (98-107); CREATININE FOR GFR 1.13 MG/DL (0.70-1.30); GLOMERULAR FILTRATION RATE > 60.0 (>35); GLUCOSE, FASTING 197 MG/DL (70-100); POTASSIUM SERUM 4.3 MEQ/L (3.5-5.1); SODIUM LEVEL 140 MEQ/L (136-145)
[2019-01-12] MEDS ORDERED: AMLO25TA PO (15:58)
[2019-01-12] MEDS ORDERED: INSULANT SC ×2 (16:04→16:08)
[2019-01-12] MEDS ORDERED: LISI10TA4 PO (16:04)
[2019-01-12] MEDS ORDERED: NORC1TAB4 PO (16:04)
[2019-01-12] MEDS ORDERED: RANO5TAB PO (16:04)
[2019-01-12] MEDS ORDERED: CERTTAB3 PO (16:04)
[2019-01-12] MEDS ORDERED: VITAD1000T PO (16:04)
[2019-01-12] MEDS ORDERED: VITA500C24 PO (16:04)
[2019-01-12] MEDS ORDERED: LANTINJ4 SC ×2 (16:04)
[2019-01-12] MEDS ORDERED: TIOT18INH INH (16:08)
[2019-01-12] MEDS ORDERED: SPIR1CAP INH (16:08)
--- NOTE | 2019-01-12 16:33 | HPE ---
DATE OF ADMISSION: 01/12/2019 An 83-year-old male with past medical history of complete heart block, status post dual-chamber pacemaker placement, history of hypertension, diabetes, hyperlipidemia, myasthenia gravis, history of chronic low back pain secondary to spinal stenosis who presents to the emergency room from home because of inability to ambulate. He has been having severe difficulty walking because of his low back pain from his spinal stenosis. It has been to the point where he can not perform his activities of daily living. This has been going on for weeks. In fact, he came approximately two weeks ago to the emergency room (ER) and was sent home for the same chief complaint. No incidental findings were found in the ER. He will be admitted for further management, physical therapy (PT), occupational therapy (OT) and likely transfer to a subacute rehabilitation center. The patient, at this time, is pain-free at rest. PAST MEDICAL HISTORY: 1. Hypertension. 2. Diabetes. 3. Hyperlipidemia. 4. Myasthenia gravis. 5. History of aortic stenosis status post transcatheter aortic valve replacement (TAVR). 6. Diabetic neuropathy. 7. Chronic kidney disease (CKD), II. 8. Chronic diastolic heart failure. ALLERGIES: He has drug allergies to PENICILLIN and SHELLFISH. FAMILY HISTORY: Noncontributory. SOCIAL HISTORY: The patient had smoked two packs a day for 50 years. He quit approximately in 2011. Denies alcohol or illicit drugs. MEDICATIONS: He takes at home are as follows: - [place] 5/325 one tablet orally twice a day as needed - amlodipine 2.5 mg orally daily - vitamin C 500 mg orally daily - aspirin 81 mg orally daily - Plavix 75 mg orally daily - insulin glargine 35 units subcutaneously at bedtime - insulin glargine 20 units subcutaneously every morning - lisinopril 10 mg orally daily - meclizine 25 mg orally three times a day as needed - pyridostigmine 60 mg orally three times a day - ranolazine 500 mg orally twice a day - tiotropium 18 mcg inhaled daily REVIEW OF SYSTEMS: Negative for all 10 major systems except what is mentioned in the history of present illness (HPI). VITAL SIGNS: Blood pressure is 126/59, heart rate is 76 and regular, respiratory rate is 18, temperature is 99.2, oxygen saturation 99% on room air. Head is normocephalic, atraumatic. NECK: Supple with no jugular venous distention (JVD). LUNGS: Clear to auscultation. S1, S2 audible. No murmurs appreciated. ABDOMEN: Soft. Positive bowel sounds. No pedal edema. SKIN: Intact. NEUROLOGIC: The patient is awake, alert, and oriented times three. LABORATORY DATA: WBC 14.5, hemoglobin 14.1, hematocrit 44.3, platelets are 329,000. Sodium 140, potassium 4.3, chloride is 102, CO2 33, BUN is 16, creatinine 1.13, glucose is 197. IMPRESSION: 1. Debility. 2. Spinal stenosis. 3. Leukocytosis. PLAN: The patient is to be admitted to the medical/surgical floor. We will continue all of his preadmission medications. I am going to give him morphine for pain control. Physical therapy (PT) to evaluate him for his ambulation. His leukocytosis is unexplainable at this time. It could be margination but there have been no falls with his difficulty ambulating. I will send a urinalysis to make sure he does not have a urinary tract infection (UTI). His chest x-ray was negative for consolidation. We will continue following his care on the medical/surgical floor.
[2019-01-12 18:51] VITALS: BP 135/60
[2019-01-12] MEDS: MORPHINE 4 MG/ML 1ML VIAL/SYRINGE (J2270) IV PRN (20:12)
[2019-01-12] MEDS: RANOLAZINE 500 MG ER TAB PO SCH (20:51)
[2019-01-12] MEDS: NORCO, ANEXSIA 5/325MG TABLET (HYDROcodone/ACETAMINOPHEN) PO PRN (20:52)
[2019-01-12] MEDS: PYRIDOSTIGMINE 60 MG TAB PO SCH (20:52)
[2019-01-12] MEDS ORDERED: LEVEMIR (INSULIN DETEMIR) 1 UNITS/0.01ML SC SCH (21:00)
[2019-01-12 22:00] VITALS: BP 163/74
[2019-01-13 06:00] VITALS: BP 111/59
[2019-01-13 08:00] LABS: BASO # 0.1 10^3/uL (0.0-0.2); BASO % 0.3 % (0.0-1.0); EOS # 0.1 10^3/uL (0.0-0.50); EOS % 0.5 % (0.0-3.0); HEMATOCRIT 40.7 % (42.0-52.0); HEMOGLOBIN 12.7 g/dl (13.5-17.5); LYMPH # 1.3 10^3/uL (1.5-4.5); LYMPH % 8.4 % (24.0-44.0); MEAN CORPUSCULAR HEMOGLOBIN 27.7 pg (27.0-33.0); MEAN CORPUSCULAR HGB CONC 31.2 g/dl (32.0-36.5); MEAN CORPUSCULAR VOLUME 88.7 fl (80.0-96.0); MONO # 1.2 10^3/uL (0.0-0.8); MONO % 7.7 % (0.0-5.0); NEUTROPHILS # 12.4 10^3/uL (1.8-7.7); NEUTROPHILS % 82.8 % (36.0-66.0); PLATELET COUNT, AUTOMATED 318 10^3/uL (150-450); RED BLOOD COUNT 4.59 10^6/uL (4.30-6.10)
[2019-01-13] MEDS: TIOTROPIUM INHALER/CAPSULE (SPIRIVA) INH SCH (08:08)
[2019-01-13 08:33] LABS: CALCIUM LEVEL 9.2 MG/DL (8.8-10.2); CREATININE FOR GFR 1.43 MG/DL (0.70-1.30); MAGNESIUM LEVEL 2.4 MG/DL (1.8-2.4); POTASSIUM SERUM 4.3 MEQ/L (3.5-5.1)
[2019-01-13] MEDS ORDERED: LEVEMIR (INSULIN DETEMIR) 1 UNITS/0.01ML SC SCH ×2 (09:00→21:00)
[2019-01-13] MEDS: MULTIVITAMINS/MINERALS THERAP 1 TAB PO SCH (09:00)
[2019-01-13] MEDS: VITAMIN D 1,000 INTERNATIONAL UNITS TABLET PO SCH (09:00)
[2019-01-13] MEDS ORDERED: LISINOPRIL 10 MG TAB PO SCH (09:00)
[2019-01-13] MEDS: ASCORBIC ACID 500 MG TAB PO SCH (09:00)
[2019-01-13] MEDS: RANOLAZINE 500 MG ER TAB PO SCH ×2 (09:00→21:21)
[2019-01-13] MEDS: ASPIRIN 81 MG ENTERIC TAB PO SCH (09:00)
[2019-01-13] MEDS: OMEGA-3 1000MG CAPSULE PO SCH (11:00)
[2019-01-13] MEDS: CLOPIDOGREL 75 MG TAB PO SCH (11:00)
[2019-01-13] MEDS: PYRIDOSTIGMINE 60 MG TAB PO SCH ×3 (11:00→21:21)
[2019-01-13] MEDS: NORCO, ANEXSIA 5/325MG TABLET (HYDROcodone/ACETAMINOPHEN) PO PRN ×2 (11:32→15:32)
[2019-01-13] MEDS: MORPHINE 4 MG/ML 1ML VIAL/SYRINGE (J2270) IV PRN (11:43)
--- NOTE | 2019-01-13 13:17 | IPNPDOC ---
Text Note Date of Service The patient was seen on 01/13/19. NOTE Subjective: Patient is an 83 year old male with a PMHx of Chronic Diastolic CHF, Hx of TAVR, Hx of Complete heart block s/p Dual chamber PM, HTN, DM2, DLP, Myasthenia gravis, Severe spinal stenosis, CKD3, Neuropathy who presented to the ER with severe pain causing him to have difficulty with ambulation. Patient has been taking pain control medications at home, however, it has not been effective. Patient has been admitted to the hospital service for further evaluation and treatment. Patient was seen and examined at the bedside. Currently patient denies any chest pain, shortness of breath or palpitations. Denies nausea, vomiting, abdominal pain, constipation, diarrhea or discomfort with urination. He notes that her back pain is much better controlled and they will be working with physical therapy today. Objective: Vitals (See below) General: Lying in bed, no acute distress, comfortable, AAOx3 HEENT: NC, AT CVS: RRR, +S1S2 Lungs: Fair air entry b/l, -w/r/r Abdomen: Soft, ND, NT Extremities: - Edema, - Calf tenderness Neuro: 5/5 muscle strength at bilateral lower extremities Assessment and plan: Acute on chronic intractable pain - likely 2/2 Severe spinal stenosis - Patient had noted severe back pain preventing him from walking - Patient notes that his back pain is much better controlled now - No focal neurologic deficits - CT lumbar spine 01/13: 1. Minimal central canal stenosis at the L1-2 level secondary to disc bulge, ligamentous and facet hypertrophy. 2. Mild central canal stenosis at the L2-3 level secondary to disc bulge, ligamentous and facet hypertrophy. 3. Moderate central canal stenosis at the L3-4 level secondary to disc bulge, disc extrusion, ligamentous and facet hypertrophy. There is compression of the right L3 nerves in the neural foramina. 4. Severe central canal stenosis at the L4-5 level secondary to disc bulge, ligamentous and facet hypertrophy. There is compression of the L4 nerves in the neural foramina. 5. Diffuse disc bulge at the L5-S1 level with minimal thecal sac compression. There is compression of the left L5 nerve in the neural foramen. - Will c/w Percocet and Morphine for breakthrough pain; will start MS Contin for long acting pain control - c/w PT and OT; Will perform ARU screen Leukocytosis - Possibly reactive 2/2 pain, less likely 2/2 infectious etiology - ROS negative for any source of infection - Remains afebrile / hemodynamically stable - Will continue to monitor Elevated Cr on CKD3 - Cr baseline of 0.9-1.1 - Cr elevated from baseline - Avoid nephrotoxic medications; will hold Lisinopril - Will start gentle IV fluid hydration Chronic Diastolic CHF - no evidence of exacerbation - ECHO 03/2018: EF 60-65%, G1DD, Mild-moderate pulmonary HTN - Diuretics on hold Hx of TAVR / CAD - c/w ASA, Plavix, Ranolazine Hx of Complete heart block s/p Dual chamber PM HTN - BP well controlled - Will DC Lisinopril (re: elevated Cr) - Will c/w Amlodipine DM2 - c/w ISS and Levemir DLP - c/w Omegra 3 fatty acids Myasthenia gravis - c/w Pyridostigmine Neuropathy DVT prophylaxis - Will start SCDs VS,Fishbone, I+O VS, Fishbone, I+O Laboratory Tests 01/12/19 14:31 Red Blood Count 5.06, Mean Corpuscular Volume 87.7, Mean Corpuscular Hemoglobin 27.9, Mean Corpuscular Hemoglobin Concent 31.8 L, Red Cell Distribution Width 13.5, Calcium Level 9.1 01/13/19 07:29 Red Blood Count 4.59, Mean Corpuscular Volume 88.7, Mean Corpuscular Hemoglobin 27.7, Mean Corpuscular Hemoglobin Concent 31.2 L, Red Cell Distribution Width 13.4, Calcium Level 9.2, Neutrophils (%) (Auto) 82.8 H, Lymphocytes (%) (Auto) 8.4 L, Monocytes (%) (Auto) 7.7 H, Eosinophils (%) (Auto) 0.5, Basophils (%) (Auto) 0.3, Neutrophils # (Auto) 12.4 H, Lymphocytes # (Auto) 1.3 L, Monocytes # (Auto) 1.2 H, Eosinophils # (Auto) 0.1, Basophils # (Auto) 0.1 Vital Signs Date Time Temp Pulse Resp B/P (MAP) Pulse Ox O2 Delivery O2 Flow Rate FiO2 01/13/19 11:43 16 01/13/19 11:00 112/72 01/13/19 06:00 96.5 70 94 I&O- Last 24 Hours up to 6 AM 01/13/19 06:00 Intake Total 50 ml Output Total 0 ml Balance 50 ml DADA LLOYD MD Jan 13, 2019 13:17
[2019-01-13 14:00] VITALS: BP 136/65
[2019-01-13] MEDS: NS 1,000 ML IV SCH (14:50)
[2019-01-13] MEDS ORDERED: DEXTROSE 50% 50 ML SYRINGE IV PRN (17:30)
[2019-01-13] MEDS ORDERED: GLUCAGON FOR INJ 1 MG VIAL (J1610) SC PRN (17:30)
[2019-01-13] MEDS: HumaLOG INSULIN (NovoLOG) PER UNIT SC SCH ×2 (18:49→21:00)
[2019-01-13] MEDS: GLUCOSE 4 GM CHEW TABLET PO PRN (20:35)
[2019-01-13] MEDS: MORPHINE 15 MG SA TAB PO SCH (21:21)
[2019-01-13 22:00] VITALS: BP 134/64
[2019-01-14] MEDS: NS 1,000 ML IV SCH ×2 (03:11→13:45)
[2019-01-14] MEDS: GLUCOSE 4 GM CHEW TABLET PO PRN (05:55)
[2019-01-14 06:00] VITALS: BP 116/58
[2019-01-14] MEDS: HumaLOG INSULIN (NovoLOG) PER UNIT SC SCH ×5 (07:30→20:36)
[2019-01-14] MEDS: TIOTROPIUM INHALER/CAPSULE (SPIRIVA) INH SCH (07:35)
--- NOTE | 2019-01-14 08:32 | ECGEPIP ---
Stationary ECG Study [facility] - ED Test Date: 2019-01-12 Pat Name: RADHA LOVE Department: Room: [place] [address] Gender: M Facsimile Operator: ELOY : 1935 Requested By: Nikita Carroll Order Number: [id number] Reading MD: Eloise Kaur Measurements Intervals Pep Rate: 76 P: 30 UT: 237 QRS: 270 QRSD: 190 T: 84 QT: 477 QTc: 539 Interpretive Statements ELECTRONIC VENTRICULAR PACEMAKER ABNORMAL RHYTHM ECG CW 12/06/17 RATE INCREASED SIMILAR Electronically Signed On 01-14-2019 8:32:26 EST by Eloise Kaur
[2019-01-14 08:50] LABS: BASO % 0.4 % (0.0-1.0); EOS # 0.6 10^3/uL (0.0-0.50); EOS % 5.9 % (0.0-3.0); LYMPH # 1.7 10^3/uL (1.5-4.5); LYMPH % 16.4 % (24.0-44.0); MEAN CORPUSCULAR HEMOGLOBIN 27.3 pg (27.0-33.0); MEAN CORPUSCULAR HGB CONC 30.8 g/dl (32.0-36.5); MEAN CORPUSCULAR VOLUME 88.8 fl (80.0-96.0); MONO # 0.9 10^3/uL (0.0-0.8); MONO % 8.9 % (0.0-5.0); PLATELET COUNT, AUTOMATED 314 10^3/uL (150-450); RED BLOOD COUNT 4.39 10^6/uL (4.30-6.10); WHITE BLOOD COUNT 10.2 10^3/uL (4.0-10.0)
[2019-01-14] MEDS: ASPIRIN 81 MG ENTERIC TAB PO SCH (09:00)
[2019-01-14] MEDS: PYRIDOSTIGMINE 60 MG TAB PO SCH ×3 (09:00→20:35)
[2019-01-14 09:05] LABS: BLOOD UREA NITROGEN 19 MG/DL (7-18); CARBON DIOXIDE LEVEL 30 MEQ/L (21-32); CHLORIDE LEVEL 106 MEQ/L (98-107); CREATININE FOR GFR 0.92 MG/DL (0.70-1.30); GLOMERULAR FILTRATION RATE > 60.0 (>35); GLUCOSE, FASTING 33 MG/DL (70-100); MAGNESIUM LEVEL 2.1 MG/DL (1.8-2.4); POTASSIUM SERUM 3.5 MEQ/L (3.5-5.1); SODIUM LEVEL 142 MEQ/L (136-145)
[2019-01-14] MEDS: OMEGA-3 1000MG CAPSULE PO SCH (10:30)
[2019-01-14] MEDS: MULTIVITAMINS/MINERALS THERAP 1 TAB PO SCH (10:30)
[2019-01-14] MEDS: RANOLAZINE 500 MG ER TAB PO SCH ×2 (10:30→20:35)
[2019-01-14] MEDS: ASCORBIC ACID 500 MG TAB PO SCH (10:30)
[2019-01-14] MEDS: CLOPIDOGREL 75 MG TAB PO SCH (10:30)
[2019-01-14] MEDS: VITAMIN D 1,000 INTERNATIONAL UNITS TABLET PO SCH (10:30)
[2019-01-14] MEDS: MORPHINE 15 MG SA TAB PO SCH ×2 (10:31→20:36)
[2019-01-14] MEDS: MORPHINE 4 MG/ML 1ML VIAL/SYRINGE (J2270) IV PRN (12:00)
--- NOTE | 2019-01-14 13:09 | IPNPDOC ---
Text Note Date of Service The patient was seen on 01/14/19. NOTE Subjective: Patient is an 83 year old male with a PMHx of Chronic Diastolic CHF, Hx of TAVR, Hx of Complete heart block s/p Dual chamber PM, HTN, DM2, DLP, Myasthenia gravis, Severe spinal stenosis, CKD3, Neuropathy who presented to the ER with severe pain causing him to have difficulty with ambulation. Patient has been taking pain control medications at home, however, it has not been effective. Patient has been admitted to the hospital service for further evaluation and treatment. Patient was seen and examined at the bedside. Patient has no new complaints this morning. Denies any chest pain, shortness of breath or palpitations. No sinus lower back pain is somewhat better than he had first arrived to the emergency room. He denies any abdominal pain. Once patient, diarrhea or any discomfort with urination. Patient has been ambulating without any difficulty and notes that his pain is better controlled overall. Objective: Vitals (See below) General: Lying in bed, no acute distress, comfortable, AAOx3 HEENT: NC, AT CVS: RRR, +S1S2 Lungs: Fair air entry b/l, auscultation is without any wheezing, rales or rhonchi Abdomen: Soft, nondistended, without tenderness Extremities: No evidence of edema, - Calf tenderness Neuro: 5/5 muscle strength at bilateral lower extremities still remains Assessment and plan: Acute on chronic intractable pain - likely 2/2 Severe spinal stenosis - Patient had noted severe back pain preventing him from walking - Patient notes that his back pain is much better controlled now - No focal neurologic deficits - CT lumbar spine 01/13: 1. Minimal central canal stenosis at the L1-2 level secondary to disc bulge, ligamentous and facet hypertrophy. 2. Mild central canal stenosis at the L2-3 level secondary to disc bulge, ligamentous and facet hypertrophy. 3. Moderate central canal stenosis at the L3-4 level secondary to disc bulge, disc extrusion, ligamentous and facet hypertrophy. There is compression of the right L3 nerves in the neural foramina. 4. Severe central canal stenosis at the L4-5 level secondary to disc bulge, ligamentous and facet hypertrophy. There is compression of the L4 nerves in the neural foramina. 5. Diffuse disc bulge at the L5-S1 level with minimal thecal sac compression. There is compression of the left L5 nerve in the neural foramen. - c/w Percocet and Morphine for breakthrough pain / MS Contin for long acting pain control - c/w PT and OT - awaiting clearance; ARU screen pending Leukocytosis - Possibly reactive 2/2 pain, less likely 2/2 infectious etiology - ROS negative for any source of infection - Remains afebrile / hemodynamically stable - Will continue to monitor s/p Elevated Cr on CKD3 - Cr baseline of 0.9-1.1 - Cr elevated from baseline - Avoid nephrotoxic medications; will hold Lisinopril - Will DC IV fluid hydration today Chronic Diastolic CHF - no evidence of exacerbation - ECHO 03/2018: EF 60-65%, G1DD, Mild-moderate pulmonary HTN - Diuretics on hold; will likely resume in next 24-48 hours Hx of TAVR / CAD - c/w ASA, Plavix, Ranolazine Hx of Complete heart block s/p Dual chamber PM HTN - BP well controlled - Will DC Lisinopril (re: elevated Cr) - Will c/w Amlodipine DM2 with hypoglycemic episodes - Will discontinue Levemir - Has been eating meals despite reporting a poor appetite - c/w ISS DLP - c/w Omegra 3 fatty acids Myasthenia gravis - c/w Pyridostigmine Neuropathy DVT prophylaxis - c/w SCDs Disposition: - Awaiting PT / OT clearance VS,Gisella, I+O VS, Gisella, I+O Laboratory Tests 01/14/19 06:01 Red Blood Count 4.39, Mean Corpuscular Volume 88.8, Mean Corpuscular Hemoglobin 27.3, Mean Corpuscular Hemoglobin Concent 30.8 L, Red Cell Distribution Width 13.4, Neutrophils (%) (Auto) 68.0 H, Lymphocytes (%) (Auto) 16.4 L, Monocytes (%) (Auto) 8.9 H, Eosinophils (%) (Auto) 5.9 H, Basophils (%) (Auto) 0.4, Neutrophils # (Auto) 7.0, Lymphocytes # (Auto) 1.7, Monocytes # (Auto) 0.9 H, Eosinophils # (Auto) 0.6 H, Basophils # (Auto) 0.0, Calcium Level 8.0 L Vital Signs Date Time Temp Pulse Resp B/P (MAP) Pulse Ox O2 Delivery O2 Flow Rate FiO2 01/14/19 12:00 16 01/14/19 10:30 116/58 01/14/19 06:00 98.4 70 94 I&O- Last 24 Hours up to 6 AM 01/14/19 06:00 Intake Total 4175 ml Output Total 925 ml Balance 3250 ml DADA LLOYD MD Jan 14, 2019 13:08
[2019-01-14 14:00] VITALS: BP 127/58
[2019-01-14] MEDS: NORCO, ANEXSIA 5/325MG TABLET (HYDROcodone/ACETAMINOPHEN) PO PRN (18:50)
[2019-01-14 22:00] VITALS: BP 133/60
[2019-01-15 06:00] VITALS: BP 140/66
[2019-01-15 07:02] LABS: BASO # 0.1 10^3/uL (0.0-0.2); BASO % 0.8 % (0.0-1.0); EOS # 0.7 10^3/uL (0.0-0.50); EOS % 8.4 % (0.0-3.0); HEMATOCRIT 39.5 % (42.0-52.0); HEMOGLOBIN 12.1 g/dl (13.5-17.5); LYMPH # 1.5 10^3/uL (1.5-4.5); LYMPH % 16.9 % (24.0-44.0); MEAN CORPUSCULAR HGB CONC 30.6 g/dl (32.0-36.5); MEAN CORPUSCULAR VOLUME 88.2 fl (80.0-96.0); MONO # 0.8 10^3/uL (0.0-0.8); MONO % 9.2 % (0.0-5.0); NEUTROPHILS # 5.6 10^3/uL (1.8-7.7); NEUTROPHILS % 64.4 % (36.0-66.0); PLATELET COUNT, AUTOMATED 289 10^3/uL (150-450); RED BLOOD COUNT 4.48 10^6/uL (4.30-6.10); WHITE BLOOD COUNT 8.8 10^3/uL (4.0-10.0)
[2019-01-15] MEDS ORDERED: NORCO, ANEXSIA 5/325MG TABLET (HYDROcodone/ACETAMINOPHEN) PO PRN (07:30)
[2019-01-15 07:39] LABS: BLOOD UREA NITROGEN 11 MG/DL (7-18); CALCIUM LEVEL 8.3 MG/DL (8.8-10.2); CARBON DIOXIDE LEVEL 31 MEQ/L (21-32); CHLORIDE LEVEL 105 MEQ/L (98-107); CREATININE FOR GFR 0.98 MG/DL (0.70-1.30); GLOMERULAR FILTRATION RATE > 60.0 (>35); GLUCOSE, FASTING 144 MG/DL (70-100); POTASSIUM SERUM 4.3 MEQ/L (3.5-5.1); SODIUM LEVEL 140 MEQ/L (136-145)
[2019-01-15] MEDS: TIOTROPIUM INHALER/CAPSULE (SPIRIVA) INH SCH (08:40)
[2019-01-15] MEDS: HumaLOG INSULIN (NovoLOG) PER UNIT SC SCH ×4 (08:51→20:43)
[2019-01-15] MEDS: PYRIDOSTIGMINE 60 MG TAB PO SCH ×3 (08:52→20:43)
[2019-01-15] MEDS: MORPHINE 15 MG SA TAB PO SCH ×2 (08:53→20:43)
[2019-01-15] MEDS: OMEGA-3 1000MG CAPSULE PO SCH (08:53)
[2019-01-15] MEDS: ASCORBIC ACID 500 MG TAB PO SCH (08:54)
[2019-01-15] MEDS: RANOLAZINE 500 MG ER TAB PO SCH ×2 (08:54→20:42)
[2019-01-15] MEDS: MULTIVITAMINS/MINERALS THERAP 1 TAB PO SCH (08:54)
[2019-01-15] MEDS: VITAMIN D 1,000 INTERNATIONAL UNITS TABLET PO SCH (08:54)
[2019-01-15] MEDS: CLOPIDOGREL 75 MG TAB PO SCH (08:54)
[2019-01-15 13:05] LABS: AMYLASE 70 U/L (25-115); C REACTIVE PROTEIN QUANTITATIV 0.95 MG/DL (0.00-0.30); LIPASE 343 U/L (73-393)
--- NOTE | 2019-01-15 13:28 | IPNPDOC ---
Text Note Date of Service The patient was seen on 01/15/19. NOTE Subjective: Patient is an 83 year old male with a PMHx of Chronic Diastolic CHF, Hx of TAVR, Hx of Complete heart block s/p Dual chamber PM, HTN, DM2, DLP, Myasthenia gravis, Severe spinal stenosis, CKD3, Neuropathy who presented to the ER with severe pain causing him to have difficulty with ambulation. Patient has been taking pain control medications at home, however, it has not been effective. Patient has been admitted to the hospital service for further evaluation and treatment. Patient was seen and examined at the bedside. Patient notes that there still expressing back pain. Denies any chest pain, cough, shortness of breath or palpitations. He notes some nausea without any vomiting. Denies any abdominal pain. Denies constipation. Has noted some loose stools but denies any discomfort with urination. Objective: Vitals (See below) General: Lying in bed, no acute distress, comfortable, AAOx3 HEENT: NC, AT CVS: RRR, +S1S2 Lungs: Fair air entry b/l, no evidence of rhonchi, rales or wheezing on auscultation Abdomen: Soft, ND without tenderness Extremities: LE are without edema, - Calf tenderness Neuro: 5/5 muscle strength at bilateral lower extremities still remains Assessment and plan: Acute on chronic intractable pain - likely 2/2 Severe spinal stenosis - Patient has noted that he has been able to walk without any difficulty - Patient notes that his back pain is much better controlled now - No focal neurologic deficits - CT lumbar spine 01/13: 1. Minimal central canal stenosis at the L1-2 level secondary to disc bulge, ligamentous and facet hypertrophy. 2. Mild central canal stenosis at the L2-3 level secondary to disc bulge, ligamentous and facet hypertrophy. 3. Moderate central canal stenosis at the L3-4 level secondary to disc bulge, disc extrusion, ligamentous and facet hypertrophy. There is compression of the right L3 nerves in the neural foramina. 4. Severe central canal stenosis at the L4-5 level secondary to disc bulge, ligamentous and facet hypertrophy. There is compression of the L4 nerves in the neural foramina. 5. Diffuse disc bulge at the L5-S1 level with minimal thecal sac compression. There is compression of the left L5 nerve in the neural foramen. - c/w MS Contin; Will DC Morphine; Will increase frequency of Percocet - c/w PT and OT - awaiting clearance; ARU screen pending Leukocytosis - Possibly reactive 2/2 pain, less likely 2/2 infectious etiology - ROS negative for any source of infection - CRP mildly elevated - Remains afebrile / hemodynamically stable - Will continue to monitor s/p Elevated Cr on CKD3 - Cr baseline of 0.9-1.1 - Cr elevated from baseline - Avoid nephrotoxic medications; will hold Lisinopril - s/p IV fluid hydration today Chronic Diastolic CHF - no evidence of exacerbation - ECHO 03/2018: EF 60-65%, G1DD, Mild-moderate pulmonary HTN - Diuretics on hold; will likely resume in next 24 hours Hx of TAVR / CAD - c/w ASA, Plavix, Ranolazine Hx of Complete heart block s/p Dual chamber PM HTN - BP well controlled - s/p Lisinopril (re: elevated Cr) - c/w Amlodipine DM2 with hypoglycemic episodes - Will discontinue Levemir - Has been eating meals despite reporting a poor appetite - c/w ISS DLP - c/w Waterproof 3 fatty acids Myasthenia gravis - c/w Pyridostigmine Neuropathy DVT prophylaxis - c/w SCDs Disposition: - Awaiting PT / OT clearance VS,Gisella, I+O VS, Gisella, I+O Laboratory Tests 01/15/19 06:16 Red Blood Count 4.48, Mean Corpuscular Volume 88.2, Mean Corpuscular Hemoglobin 27.0, Mean Corpuscular Hemoglobin Concent 30.6 L, Red Cell Distribution Width 13.4, Neutrophils (%) (Auto) 64.4, Lymphocytes (%) (Auto) 16.9 L, Monocytes (%) (Auto) 9.2 H, Eosinophils (%) (Auto) 8.4 H, Basophils (%) (Auto) 0.8, Neutrophi ls # (Auto) 5.6, Lymphocytes # (Auto) 1.5, Monocytes # (Auto) 0.8, Eosinophils # (Auto) 0.7 H, Basophils # (Auto) 0.1, Calcium Level 8.3 L Vital Signs Date Time Temp Pulse Resp B/P (MAP) Pulse Ox O2 Delivery O2 Flow Rate FiO2 01/15/19 08:53 16 01/15/19 08:53 71 140/66 01/15/19 06:00 97.4 92 I&O- Last 24 Hours up to 6 AM 01/15/19 06:00 Intake Total 1960 ml Output Total 1325 ml Balance 635 ml DADA LLOYD MD Jan 15, 2019 13:28
[2019-01-15 14:00] VITALS: BP 126/58
[2019-01-15] MEDS ORDERED: MOM 30ML SUSPENSION UDC PO PRN (15:30)
[2019-01-15] MEDS: SENOKOT S TAB PO PRN (18:25)
[2019-01-15 22:00] VITALS: BP 136/69
[2019-01-16 06:00] VITALS: BP 121/59
[2019-01-16 06:45] LABS: BASO # 0.1 10^3/uL (0.0-0.2); BASO % 0.3 % (0.0-1.0); EOS # 0.4 10^3/uL (0.0-0.50); EOS % 2.1 % (0.0-3.0); HEMATOCRIT 38.6 % (42.0-52.0); HEMOGLOBIN 12.1 g/dl (13.5-17.5); LYMPH # 1.4 10^3/uL (1.5-4.5); LYMPH % 7.8 % (24.0-44.0); MEAN CORPUSCULAR HEMOGLOBIN 27.7 pg (27.0-33.0); MEAN CORPUSCULAR HGB CONC 31.3 g/dl (32.0-36.5); MEAN CORPUSCULAR VOLUME 88.3 fl (80.0-96.0); MONO # 1.3 10^3/uL (0.0-0.8); MONO % 7.6 % (0.0-5.0); NEUTROPHILS # 14.1 10^3/uL (1.8-7.7); NEUTROPHILS % 81.6 % (36.0-66.0); PLATELET COUNT, AUTOMATED 266 10^3/uL (150-450); RED BLOOD COUNT 4.37 10^6/uL (4.30-6.10); WHITE BLOOD COUNT 17.3 10^3/uL (4.0-10.0)
[2019-01-16 07:19] LABS: BLOOD UREA NITROGEN 12 MG/DL (7-18); C REACTIVE PROTEIN QUANTITATIV 5.04 MG/DL (0.00-0.30); CALCIUM LEVEL 8.3 MG/DL (8.8-10.2); CARBON DIOXIDE LEVEL 30 MEQ/L (21-32); CHLORIDE LEVEL 102 MEQ/L (98-107); CREATININE FOR GFR 0.97 MG/DL (0.70-1.30); GLOMERULAR FILTRATION RATE > 60.0 (>35); GLUCOSE, FASTING 195 MG/DL (70-100); MAGNESIUM LEVEL 2.1 MG/DL (1.8-2.4); POTASSIUM SERUM 4.4 MEQ/L (3.5-5.1); SODIUM LEVEL 136 MEQ/L (136-145)
[2019-01-16] MEDS: TIOTROPIUM INHALER/CAPSULE (SPIRIVA) INH SCH (08:08)
--- NOTE | 2019-01-16 10:12 | REP ---
Chest x-ray: Two views: History: Abnormal breath sounds. Comparison chest x-ray: January 12, 2019. Findings: A bipolar pacemaker remains in the right heart via the left side. The lungs are symmetrically aerated and free of infiltrate. There is slight blunting of the right lateral pleural angle. No other evidence of pleural effusion is seen. The thoracic aorta is calcific and tortuous. The patient is status post aortic valve/stent graft placement. Impression: Status post aortic valve replacement. Pacemaker. Slight blunting of the right lateral pleural angle. Otherwise no acute changes. Electronically Signed by Samuel Ferguson MD 01/16/2019 12:46 P
[2019-01-16] MEDS: HumaLOG INSULIN (NovoLOG) PER UNIT SC SCH ×4 (10:38→21:00)
[2019-01-16] MEDS: MORPHINE 15 MG SA TAB PO SCH ×2 (10:39→21:40)
[2019-01-16] MEDS: PYRIDOSTIGMINE 60 MG TAB PO SCH ×3 (10:39→21:41)
[2019-01-16] MEDS: ASCORBIC ACID 500 MG TAB PO SCH (10:39)
[2019-01-16] MEDS: RANOLAZINE 500 MG ER TAB PO SCH ×2 (10:39→21:39)
[2019-01-16] MEDS: OMEGA-3 1000MG CAPSULE PO SCH (10:39)
[2019-01-16] MEDS: CLOPIDOGREL 75 MG TAB PO SCH (10:39)
[2019-01-16] MEDS: VITAMIN D 1,000 INTERNATIONAL UNITS TABLET PO SCH (10:40)
[2019-01-16] MEDS: ASPIRIN 81 MG ENTERIC TAB PO SCH (10:40)
[2019-01-16] MEDS: MULTIVITAMINS/MINERALS THERAP 1 TAB PO SCH (10:40)
--- NOTE | 2019-01-16 12:59 | REP ---
LUMBAR SPINE RADIOGRAPHS: FIVE VIEWS. HISTORY: Low back pain. Comparison is made with CT study of the lumbar spine from November 23, 2018. FINDINGS: There is a wedge-shaped anterior compression fracture deformity at the T12 vertebral body which was not apparent at the time of CT study from November 23, 2018. Lumbar vertebral body heights are preserved. No other fracture or collapse is seen. There is degenerative disc disease with reactive sclerosis and osteophyte formation at each level from L2-3 through L5-S1. There is extensive vascular calcification in a normal caliber aorta and its major branches. Sacrum and SI joints are intact. There are bilateral pelvic or inguinal surgical clips. A mild levoconvex curve is noted. IMPRESSION: Wedge compression fracture deformity at T12 with approximately 50% loss of anterior vertebral body height. This is new from the November 23, 2018 CT study of the lumbar spine. Diffuse degenerative spondylosis changes. Electronically Signed by Samuel Ferguson MD 01/16/2019 03:17 P
[2019-01-16] MEDS: LevoFLOXacin IV 500 MG in APPROPRIATE DILUENT 1 EA IV SCH (13:31)
[2019-01-16 13:52] LABS: INFLUENZA A AMPLIFICATION NEGATIVE (NEGATIVE); INFLUENZA B AMPLIFICATION NEGATIVE (NEGATIVE)
[2019-01-16 14:00] VITALS: BP 128/58
--- NOTE | 2019-01-16 14:36 | ECGEPIP ---
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
--- NOTE | 2019-01-16 14:45 | IPNPDOC ---
Text Note Date of Service The patient was seen on 01/16/19. NOTE Subjective: Patient is an 83 year old male with a PMHx of Chronic Diastolic CHF, Hx of TAVR, Hx of Complete heart block s/p Dual chamber PM, HTN, DM2, DLP, Myasthenia gravis, Severe spinal stenosis, CKD3, Neuropathy who presented to the ER with severe pain causing him to have difficulty with ambulation. Patient has been taking pain control medications at home, however, it has not been effective. Patient has been admitted to the hospital service for further evaluation and treatment. Patient was seen and examined at the bedside. Patient has no new complaints. He denies cough, nausea, vomiting or abdominal pain this morning. . He denies any difficulty breathing, has not experienced any diarrhea this morning. Does not complain of any urinary discomfort. Objective: Vitals (See below) General: Lying in bed, no acute distress, comfortable, AAOx3 HEENT: NC, AT CVS: RRR, +S1S2 Lungs: Fair air entry b/l, auscultation has revealed some rhonchi / crackles at the right lung base, no evidence of wheezing Abdomen: Soft, nondistended and no tenderness appreciated Extremities: No edema of lower extremity, - Calf tenderness Neuro: 5/5 muscle strength at bilateral lower extremities still remains Assessment and plan: Leukocytosis - likely 2/2 pneumonia; possibly 2/2 CAP - Clinically patient has not expense any shortness of breath, but does experience a very mild cough - Physical reveals some rhonchi/crackles at the right lung base - Leukocytosis was found this morning; upward trend of CRP - No lactic acidosis - Sputum cultures and blood cultures remain pending - CXR 01/16: Status post aortic valve replacement. Pacemaker. Slight blunting of the right lateral pleural angle. Otherwise no acute changes. - Will start Levaquin (Day #1) - EKG on 01/16 repeated - revealed QTc of 467 Acute on chronic intractable pain - likely 2/2 Severe spinal stenosis - Patient has noted that he has been able to walk without any difficulty - Patient notes that his back pain is much better controlled now - No focal neurologic deficits - CT lumbar spine 01/13: 1. Minimal central canal stenosis at the L1-2 level secondary to disc bulge, ligamentous and facet hypertrophy. 2. Mild central canal stenosis at the L2-3 level secondary to disc bulge, ligamentous and facet hypertrophy. 3. Moderate central canal stenosis at the L3-4 level secondary to disc bulge, disc extrusion, ligamentous and facet hypertrophy. There is compression of the right L3 nerves in the neural foramina. 4. Severe central canal stenosis at the L4-5 level secondary to disc bulge, ligamentous and facet hypertrophy. There is compression of the L4 nerves in the neural foramina. 5. Diffuse disc bulge at the L5-S1 level with minimal thecal sac compression. There is compression of the left L5 nerve in the neural foramen. - c/w MS Contin and Percocet PRN; s/p Morphine - c/w PT - not cleared; c/w OT - has cleared - ARU screen pending s/p Elevated Cr on CKD3 - Cr baseline of 0.9-1.1 - Cr elevated from baseline - Avoid nephrotoxic medications; will hold Lisinopril - s/p IV fluid hydration today Chronic Diastolic CHF - no evidence of exacerbation - ECHO 03/2018: EF 60-65%, G1DD, Mild-moderate pulmonary HTN - Does not take any diuretics as an outpatient Hx of TAVR / CAD - c/w ASA, Plavix, Ranolazine Hx of Complete heart block s/p Dual chamber PM HTN - BP well controlled - s/p Lisinopril (re: elevated Cr) - c/w Amlodipine DM2 with hypoglycemic episodes - Will discontinue Levemir - Has been eating meals despite reporting a poor appetite - c/w ISS DLP - c/w [place] 3 fatty acids Myasthenia gravis - c/w Pyridostigmine Neuropathy DVT prophylaxis - c/w SCDs Disposition: - Awaiting PT / OT clearance VS,Gisella, I+O VS, Gisella, I+O Laboratory Tests 01/16/19 06:17 Red Blood Count 4.37, Mean Corpuscular Volume 88.3, Mean Corpuscular Hemoglobin 27.7, Mean Corpuscular Hemoglobin Concent 31.3 L, Red Cell Distribution Width 13.3, Neutrophils (%) (Auto) 81.6 H, Lymphocytes (%) (Auto) 7.8 L, Monocytes (%) (Auto) 7.6 H, Eosinophils (%) (Auto) 2.1, Basophils (%) (Auto) 0.3, Neutrophils # (Auto) 14.1 H, Lymphocytes # (Auto) 1.4 L, Monocytes # (Auto) 1.3 H, Eosinophils # (Auto) 0.4, Basophils # (Auto) 0.1, Calcium Level 8.3 L Vital Signs Date Time Temp Pulse Resp B/P (MAP) Pulse Ox O2 Delivery O2 Flow Rate FiO2 01/16/19 10:40 90 133/61 01/16/19 10:39 16 01/16/19 06:00 96.7 93 I&O- Last 24 Hours up to 6 AM 01/16/19 06:00 Intake Total 710 ml Balance 710 ml DADA LLOYD MD Jan 16, 2019 14:45
[2019-01-16 22:00] VITALS: BP 124/82
[2019-01-17 06:00] VITALS: BP 132/58
[2019-01-17 06:15] LABS: BASO % 0.3 % (0.0-1.0); EOS # 0.6 10^3/uL (0.0-0.50); EOS % 4.6 % (0.0-3.0); HEMATOCRIT 37.9 % (42.0-52.0); HEMOGLOBIN 11.9 g/dl (13.5-17.5); LYMPH # 1.1 10^3/uL (1.5-4.5); LYMPH % 8.4 % (24.0-44.0); MEAN CORPUSCULAR HEMOGLOBIN 27.7 pg (27.0-33.0); MEAN CORPUSCULAR HGB CONC 31.4 g/dl (32.0-36.5); MEAN CORPUSCULAR VOLUME 88.1 fl (80.0-96.0); MONO # 1.1 10^3/uL (0.0-0.8); MONO % 8.6 % (0.0-5.0); NEUTROPHILS # 10.2 10^3/uL (1.8-7.7); NEUTROPHILS % 77.6 % (36.0-66.0); PLATELET COUNT, AUTOMATED 274 10^3/uL (150-450); WHITE BLOOD COUNT 13.1 10^3/uL (4.0-10.0)
[2019-01-17 06:44] LABS: BLOOD UREA NITROGEN 11 MG/DL (7-18); C REACTIVE PROTEIN QUANTITATIV 8.19 MG/DL (0.00-0.30); CALCIUM LEVEL 8.5 MG/DL (8.8-10.2); CARBON DIOXIDE LEVEL 31 MEQ/L (21-32); CHLORIDE LEVEL 103 MEQ/L (98-107); CREATININE FOR GFR 0.95 MG/DL (0.70-1.30); GLOMERULAR FILTRATION RATE > 60.0 (>35); GLUCOSE, FASTING 203 MG/DL (70-100); MAGNESIUM LEVEL 1.9 MG/DL (1.8-2.4); POTASSIUM SERUM 4.3 MEQ/L (3.5-5.1); SODIUM LEVEL 139 MEQ/L (136-145)
[2019-01-17] MEDS: TIOTROPIUM INHALER/CAPSULE (SPIRIVA) INH SCH (08:04)
[2019-01-17] MEDS: CLOPIDOGREL 75 MG TAB PO SCH (09:11)
[2019-01-17] MEDS: MULTIVITAMINS/MINERALS THERAP 1 TAB PO SCH (09:11)
[2019-01-17] MEDS: HumaLOG INSULIN (NovoLOG) PER UNIT SC SCH ×4 (09:11→21:00)
[2019-01-17] MEDS: OMEGA-3 1000MG CAPSULE PO SCH (09:11)
[2019-01-17] MEDS: PYRIDOSTIGMINE 60 MG TAB PO SCH ×3 (09:12→20:32)
[2019-01-17] MEDS: ASCORBIC ACID 500 MG TAB PO SCH (09:12)
[2019-01-17] MEDS: RANOLAZINE 500 MG ER TAB PO SCH ×2 (09:12→20:30)
[2019-01-17] MEDS: VITAMIN D 1,000 INTERNATIONAL UNITS TABLET PO SCH (09:12)
[2019-01-17] MEDS: ASPIRIN 81 MG ENTERIC TAB PO SCH (09:12)
[2019-01-17] MEDS: MORPHINE 15 MG SA TAB PO SCH ×2 (09:13→20:31)
[2019-01-17 10:30] VITALS: BP 143/64
--- NOTE | 2019-01-17 12:16 | IPNPDOC ---
Text Note Date of Service The patient was seen on 01/17/19. NOTE Subjective: Patient is an 83 year old male with a PMHx of Chronic Diastolic CHF, Hx of TAVR, Hx of Complete heart block s/p Dual chamber PM, HTN, DM2, DLP, Myasthenia gravis, Severe spinal stenosis, CKD3, Neuropathy who presented to the ER with severe pain causing him to have difficulty with ambulation. Patient has been taking pain control medications at home, however, it has not been effective. Patient has been admitted to the hospital service for further evaluation and treatment. Patient was seen and examined at the bedside. This morning patient does not have any new complaints. I described to him the imaging findings advised him that with a surgery will be available in consultation. Currently, denies any nausea, vomiting, abdominal pain, constipation or diarrhea. Has been working with physical therapy. Objective: Vitals (See below) General: Lying in bed, no acute distress, comfortable, AAOx3 HEENT: NC, AT CVS: RRR, +S1S2 Lungs: Fair air entry b/l, rhonchi appreciated at right lung base. No evidence of wheezing or crackles Abdomen: Soft, ND without tenderness Extremities: No edema of lower extremity, - Calf tenderness Neuro: 5/5 muscle strength at bilateral lower extremities still remains Assessment and plan: Leukocytosis - likely 2/2 pneumonia; possibly 2/2 CAP - Patient again denies any chest pain, shortness of breath or palpitations - Physical with rhonchi at right lung base - Improvement in leukocytosis; CRP has mildly trended up - No lactic acidosis - Sputum cultures and blood cultures remain pending - CXR 01/16: Status post aortic valve replacement. Pacemaker. Slight blunting of the right lateral pleural angle. Otherwise no acute changes. - c/w Levaquin (Day #2) - EKG on 3 repeated - revealed QTc of 467 Acute on chronic intractable pain - likely 2/2 Severe spinal stenosis - Again. Patient has been ambulating without much difficulty, however has not ye t cleared physical therapy - Patient still reports some back pain, although it is significantly improved from admission - No focal neurologic deficits - CT lumbar spine 01/13: 1. Minimal central canal stenosis at the L1-2 level secondary to disc bulge, ligamentous and facet hypertrophy. 2. Mild central canal stenosis at the L2-3 level secondary to disc bulge, ligamentous and facet hypertrophy. 3. Moderate central canal stenosis at the L3-4 level secondary to disc bulge, disc extrusion, ligamentous and facet hypertrophy. There is compression of the right L3 nerves in the neural foramina. 4. Severe central canal stenosis at the L4-5 level secondary to disc bulge, ligamentous and facet hypertrophy. There is compression of the L4 nerves in the neural foramina. 5. Diffuse disc bulge at the L5-S1 level with minimal thecal sac compression. There is compression of the left L5 nerve in the neural foramen. - XR L-Spine 01/16: Wedge compression fracture deformity at T12 with approximately 50% loss of anterior vertebral body height. This is new from the November 23, 2018 CT study of the lumbar spine. Diffuse degenerative spondylosis changes. - c/w MS Contin and Percocet PRN; s/p Morphine - c/w PT - not cleared; c/w OT - has cleared - ARU screen pending - Consult orthopedic surgery; potential brace placement s/p Elevated Cr on CKD3 - Cr baseline of 0.9-1.1 - Cr elevated from baseline - Avoid nephrotoxic medications; will hold Lisinopril - s/p IV fluid hydration today Chronic Diastolic CHF - no evidence of exacerbation - ECHO 03/2018: EF 60-65%, G1DD, Mild-moderate pulmonary HTN - Does not take any diuretics as an outpatient Hx of TAVR / CAD - c/w ASA, Plavix, Ranolazine Hx of Complete heart block s/p Dual chamber PM HTN - BP well controlled - s/p Lisinopril (re: elevated Cr) - c/w Amlodipine DM2 with hypoglycemic episodes - Will discontinue Levemir - Has been eating meals despite reporting a poor appetite - c/w ISS DLP - c/w [place] 3 fatty acids Myasthenia gravis - c/w Pyridostigmine Neuropathy DVT prophylaxis - c/w SCDs Disposition: - Awaiting PT / OT clearance - Orthopedic consult Gisella MENEZES, I+O Gisella MENEZES, I+O Laboratory Tests 01/17/19 05:58 Red Blood Count 4.30, Mean Corpuscular Volume 88.1, Mean Corpuscular Hemoglobin 27.7, Mean Corpuscular Hemoglobin Concent 31.4 L, Red Cell Distribution Width 13.3, Neutrophils (%) (Auto) 77.6 H, Lymphocytes (%) (Auto) 8.4 L, Monocytes (%) (Auto) 8.6 H, Eosinophils (%) (Auto) 4.6 H, Basophils (%) (Auto) 0.3, Neutrophils # (Auto) 10.2 H, Lymphocytes # (Auto) 1.1 L, Monocytes # (Auto) 1.1 H, Eosinophils # (Auto) 0.6 H, Basophils # (Auto) 0.0, Calcium Level 8.5 L Vital Signs Date Time Temp Pulse Resp B/P (MAP) Pulse Ox O2 Delivery O2 Flow Rate FiO2 01/17/19 10:30 98.2 66 18 143/64 (54) 94 I&O- Last 24 Hours up to 6 AM 01/17/19 05:59 Intake Total 970 ml Output Total 200 ml Balance 770 ml DADA LLOYD MD Jan 17, 2019 12:15
[2019-01-17] MEDS: LevoFLOXacin IV 500 MG in APPROPRIATE DILUENT 1 EA IV SCH (12:49)
[2019-01-17 14:38] VITALS: BP 142/84
--- NOTE | 2019-01-17 18:37 | CR ---
DATE OF CONSULTATION: 01/17/2019 CHIEF COMPLAINT: Back pain. HISTORY OF PRESENT ILLNESS: This is an 83-year-old male with multiple past medical problems who was admitted to the hospital with chronic low back pain and has a history of severe spinal stenosis. He was having severe difficulty ambulating due to his low back pain from the spinal stenosis and presented to the hospital. Once here, he was found to have pneumonia and is now on intravenous (IV) antibiotics for this. He feels that over the past few days his pain is slowly getting better. He is on MS Contin but is not requiring the as needed Vicodin that is ordered for him. He has been ambulating with his walker without too much difficulty. He denies bowel or bladder incontinence. PAST MEDICAL HISTORY: 1. Hypertension. 2. Diabetes. 3. Hyperlipidemia. 4. Myasthenia gravis. 5. Aortic stenosis, status post aortic valve replacement. 6. Diabetic neuropathy. 7. Chronic kidney disease, stage II. 8. Heart failure. ALLERGIES: PENICILLIN and shellfish. SOCIAL HISTORY: Patient does not currently smoke but smoked two packs a day for 50 years. Quit in 2011. No alcohol or drugs. HOME MEDICATIONS: [place], amlodipine, vitamin, aspirin, Plavix, insulin, lisinopril, meclizine, pyridostigmine, ranolazine, tiotropium. PHYSICAL EXAMINATION: GENERAL: Well appearing. No acute distress. Is able to ambulate for me without much difficulty. VITAL SIGNS: Temperature 97.2, pulse 72, respiratory rate 18, blood pressure (BP) 142/81, pulse oximetry 91% on room air. PULMONARY: Clear to auscultation bilaterally. CARDIOVASCULAR: Regular rate and rhythm. ABDOMEN: Soft and nontender. MUSCULOSKELETAL: Patient has 5/5 strength in his iliopsoas, quadriceps, tibialis anterior, gastrocnemius, and extensor hallucis longus (EHL). He has normal sensation to light touch in the L3-L1 distribution. He has no tenderness in his cervical spine but does have tenderness in the mid thoracic spine as well as in the lower thoracic spine in the T12 area. He has some mild pain in the paraspinal muscles as well in the lumbar region. IMAGING: Radiographs from this hospital admission are reviewed. There is a T12 compression fracture, which appears to be new from the patient's prior CT lumbar spine that was done on 11/23/2018. The CT spine was also reviewed and does show severe spinal stenosis, primarily in the L4-S1 region. IMPRESSION: Lumbar spinal stenosis and T12 compression fracture, which is new in the past 2 months. PLAN: Overall, patient does seem to be getting around fairly well. I would continue using a walker for ambulation. He does have some tenderness to palpation in the upper thoracic spine, so I would also check thoracic spine x-rays given his new compression fracture. We did briefly discuss a brace. Patient is potentially interested in one. He would most likely be able to use [place] or could even have a thoracic lumbar sacral orthosis (TLSO) if he wanted something more substantial. He does not necessarily have to have a brace for this fracture given his age and the fact that he has pneumonia. Certainly would not want to make his breathing any more difficult with a brace; however, patient would like to try to ambulate a bit more and work with therapy. If he is continuing to have back pain, we can get him a brace at any time. We will see how things go for him tomorrow and decide whether this is something he would like to obtain. He denies any bowel or bladder incontinence, and he is neurovascularly intact. He should followup at [facility] with one of our PAs for the T12 compression fracture after discharge. RADHA
[2019-01-17 22:00] VITALS: BP 138/72
[2019-01-18 06:00] VITALS: BP 148/68
[2019-01-18] MEDS ORDERED: LevoFLOXacin 500 MG TABLET PO SCH (06:00)
[2019-01-18 06:29] LABS: BASO # 0.1 10^3/uL (0.0-0.2); BASO % 0.4 % (0.0-1.0); EOS # 0.5 10^3/uL (0.0-0.50); EOS % 4.3 % (0.0-3.0); HEMATOCRIT 38.7 % (42.0-52.0); HEMOGLOBIN 12.2 g/dl (13.5-17.5); MEAN CORPUSCULAR HEMOGLOBIN 27.5 pg (27.0-33.0); MEAN CORPUSCULAR HGB CONC 31.5 g/dl (32.0-36.5); MEAN CORPUSCULAR VOLUME 87.4 fl (80.0-96.0); MONO # 1.1 10^3/uL (0.0-0.8); NEUTROPHILS # 9.6 10^3/uL (1.8-7.7); PLATELET COUNT, AUTOMATED 275 10^3/uL (150-450); RED BLOOD COUNT 4.43 10^6/uL (4.30-6.10); WHITE BLOOD COUNT 12.3 10^3/uL (4.0-10.0)
[2019-01-18 06:54] LABS: BLOOD UREA NITROGEN 11 MG/DL (7-18); C REACTIVE PROTEIN QUANTITATIV 8.39 MG/DL (0.00-0.30); CALCIUM LEVEL 8.5 MG/DL (8.8-10.2); CARBON DIOXIDE LEVEL 33 MEQ/L (21-32); CHLORIDE LEVEL 101 MEQ/L (98-107); GLOMERULAR FILTRATION RATE > 60.0 (>35); GLUCOSE, FASTING 222 MG/DL (70-100); MAGNESIUM LEVEL 1.9 MG/DL (1.8-2.4); POTASSIUM SERUM 4.1 MEQ/L (3.5-5.1); SODIUM LEVEL 138 MEQ/L (136-145)
[2019-01-18] MEDS: TIOTROPIUM INHALER/CAPSULE (SPIRIVA) INH SCH (08:17)
[2019-01-18 08:30] VITALS: BP 146/74
[2019-01-18] MEDS: HumaLOG INSULIN (NovoLOG) PER UNIT SC SCH ×4 (09:50→21:37)
[2019-01-18] MEDS: VITAMIN D 1,000 INTERNATIONAL UNITS TABLET PO SCH (09:50)
[2019-01-18] MEDS: RANOLAZINE 500 MG ER TAB PO SCH ×2 (09:50→21:42)
[2019-01-18] MEDS: ASPIRIN 81 MG ENTERIC TAB PO SCH (09:50)
[2019-01-18] MEDS: ASCORBIC ACID 500 MG TAB PO SCH (09:52)
[2019-01-18] MEDS: CLOPIDOGREL 75 MG TAB PO SCH (09:52)
[2019-01-18] MEDS: OMEGA-3 1000MG CAPSULE PO SCH (09:52)
[2019-01-18] MEDS: MULTIVITAMINS/MINERALS THERAP 1 TAB PO SCH (09:52)
[2019-01-18] MEDS: PYRIDOSTIGMINE 60 MG TAB PO SCH ×3 (09:52→21:42)
[2019-01-18] MEDS: MORPHINE 15 MG SA TAB PO SCH ×2 (09:54→21:44)
[2019-01-18 14:00] VITALS: BP 142/62
--- NOTE | 2019-01-18 15:20 | REP ---
CT THORACIC SPINE WITHOUT CONTRAST: HISTORY: T12 fracture. Comparison is made with images of the thoracic and lumbar spine from November 23, 2018. Comparison radiographs are from January 16, 2019. CT FINDINGS: CT study confirms the presence of a wedge compression fracture deformity at the T12 vertebral body with principal collapse of the inferior endplate. There is some posterior cortical buckling and retropulsion measuring 5 mm observed producing mild central canal narrowing at the T12 level. There does appear to be some healing sclerosis. No other fracture is seen. There is no evidence of fracture involving the pedicles or posterior elements at T12. There is a small central disc protrusion, which is calcified at the T7-8 level. This appears to subtly indents the thecal sac. No other significant thoracic disc herniation is seen. Vascular calcification is noted fairly extensively. The visualized lung mares show no abnormality. There is degenerative disc disease. IMPRESSION: Wedge compression fracture deformity at T12 with approximately 60% loss of anterior vertebral body heights. There is 5 mm of retropulsion of the posterior cortex inferiorly at T12. Mild central calcified disc protrusion is seen at T7-8. Electronically Signed by Samuel Ferguson MD 01/18/2019 05:08 P
[2019-01-18 22:00] VITALS: BP 154/72
[2019-01-19] MEDS ORDERED: ALBUTEROL SULFATE 2.5 MG/0.5 ML INH NEB SOLN NEB PRN (01:00)
--- NOTE | 2019-01-19 01:20 | IPNPDOC ---
Text Note Date of Service The patient was seen on 01/18/19. NOTE Subjective: Patient was seen and examined at the bedside. This morning patient does not have any new complaints. I described to him the imaging findings advised him that with a surgery will be available in consultation. Currently, denies any nausea, vomiting, abdominal pain, constipation or diarrhea. Has been working with physical therapy. Objective: Vitals (See below) General: Lying in bed, no acute distress, comfortable, AAOx3 HEENT: NC, AT CVS: RRR, +S1S2, no rub murmur or gallop Lungs: Fair air entry b/l, rhonchi appreciated at right lung base. No evidence of wheezing or crackles Abdomen: Soft, ND without tenderness Extremities: No edema of lower extremity, - Calf tenderness Neuro: 5/5 muscle strength at bilateral lower extremities still remains Radiology: - CT lumbar spine 01/13: 1. Minimal central canal stenosis at the L1-2 level secondary to disc bulge, ligamentous and facet hypertrophy. 2. Mild central canal stenosis at the L2-3 level secondary to disc bulge, ligamentous and facet hypertrophy. 3. Moderate central canal stenosis at the L3-4 level secondary to disc bulge, disc extrusion, ligamentous and facet hypertrophy. There is compression of the right L3 nerves in the neural foramina. 4. Severe central ca nal stenosis at the L4-5 level secondary to disc bulge, ligamentous and facet hypertrophy. There is compression of the L4 nerves in the neural foramina. 5. Diffuse disc bulge at the L5-S1 level with minimal thecal sac compression. There is compression of the left L5 nerve in the neural foramen. - XR L-Spine 01/16: Wedge compression fracture deformity at T12 with approximately 50% loss of anterior vertebral body height. This is new from the November 23, 2018 CT study of the lumbar spine. Diffuse degenerative spondylosis changes. CT thoracic spine: There is a small central disc protrusion, which is calcified at the T7-8 level. This appears to subtly indents the thecal sac. Assessment and plan: Patient is an 83 year old male with a PMHx of Chronic Diastolic CHF, Hx of TAVR, Hx of Complete heart block s/p Dual chamber PM, HTN, DM2, DLP, Myasthenia gravis, Severe spinal stenosis, CKD3, Neuropathy who presented to the ER with severe pain causing him to have difficulty with ambulation. Patient has been taking pain control medications at home, however, i t has not been effective. Patient has been admitted to the hospital service for further evaluation and treatment. Acute on chronic intractable Back pain - Due to T12 compression fracture and severe spinal stenosis. - Patient has been ambulating without much difficulty, however has not yet cleared physical therapy - Patient still reports some back pain, although it is significantly improved from admission - No focal neurologic deficits - c/w MS Contin and Percocet PRN; s/p Morphine - c/w PT - not cleared; c/w OT - has cleared - ARU screen pending - Orthopedic surgery advised brace if there is difficulty in mobilization but patient moving fine. Leukocytosis -this is likely reactive to pain from fracture. - I do not see any pneumonia may have atelectasis - Sputum only a few organisms which are oral pee. - will stop levofloxain - will give incentive spirometry COPD -continue spiriva and albuterol prn DANNY - Cr baseline of 0.9-1.1 - resolved. Chronic Diastolic CHF - no evidence of exacerbation - ECHO 03/2018: EF 60-65%, G1DD, Mild-moderate pulmonary HTN - Does not take any diuretics as an outpatient Hx of TAVR / CAD - c/w ASA, Plavix, Ranolazine Hx of Complete heart block s/p Dual chamber PM HTN - BP well controlled - s/p Lisinopril (re: elevated Cr) - c/w Amlodipine DM2 with hypoglycemic episodes - Will discontinue Levemir - Has been eating meals despite reporting a poor appetite - c/w ISS DLP - c/w [place] 3 fatty acids Myasthenia gravis - c/w Pyridostigmine Neuropathy DVT prophylaxis - c/w SCDs Disposition: - Awaiting PT / OT clearance - Orthopedic consult VS,Gisella, I+O VS, Gisella, I+O Laboratory Tests 01/18/19 05:39 Red Blood Count 4.43, Mean Corpuscular Volume 87.4, Mean Corpuscular Hemoglobin 27.5, Mean Corpuscular Hemoglobin Concent 31.5 L, Red Cell Distribution Width 13.3, Neutrophils (%) (Auto) 78.0 H, Lymphocytes (%) (Auto) 8.0 L, Monocytes (%) (Auto) 9.0 H, Eosinophils (%) (Auto) 4.3 H, Basophils (%) (Auto) 0.4, Neutrophils # (Auto) 9.6 H, Lymphocytes # (Auto) 1.0 L, Monocytes # (Auto) 1.1 H, Eosinophils # (Auto) 0.5, Basophils # (Auto) 0.1, Calcium Level 8.5 L Vital Signs Date Time Temp Pulse Resp B/P (MAP) Pulse Ox O2 Delivery O2 Flow Rate FiO2 01/18/19 22:00 97.1 83 18 154/72 (99 92 I&O- Last 24 Hours up to 6 AM 01/19/19 05:59 Intake Total 240 ml Output Total 700 ml Balance -460 ml ROGERIO HERNANDEZ MD Jan 19, 2019 01:20
[2019-01-19 06:00] VITALS: BP 144/65
[2019-01-19 06:47] LABS: BASO # 0.1 10^3/uL (0.0-0.2); BASO % 0.5 % (0.0-1.0); EOS # 0.7 10^3/uL (0.0-0.50); HEMATOCRIT 37.6 % (42.0-52.0); HEMOGLOBIN 11.6 g/dl (13.5-17.5); LYMPH # 1.4 10^3/uL (1.5-4.5); LYMPH % 14.2 % (24.0-44.0); MEAN CORPUSCULAR HEMOGLOBIN 27.2 pg (27.0-33.0); MEAN CORPUSCULAR HGB CONC 30.9 g/dl (32.0-36.5); MEAN CORPUSCULAR VOLUME 88.1 fl (80.0-96.0); MONO # 1.1 10^3/uL (0.0-0.8); MONO % 11.6 % (0.0-5.0); NEUTROPHILS # 6.4 10^3/uL (1.8-7.7); NEUTROPHILS % 66.3 % (36.0-66.0); PLATELET COUNT, AUTOMATED 283 10^3/uL (150-450); RED BLOOD COUNT 4.27 10^6/uL (4.30-6.10); WHITE BLOOD COUNT 9.6 10^3/uL (4.0-10.0)
[2019-01-19 07:10] LABS: BLOOD UREA NITROGEN 12 MG/DL (7-18); CALCIUM LEVEL 8.6 MG/DL (8.8-10.2); CARBON DIOXIDE LEVEL 32 MEQ/L (21-32); CHLORIDE LEVEL 101 MEQ/L (98-107); CREATININE FOR GFR 0.88 MG/DL (0.70-1.30); GLOMERULAR FILTRATION RATE > 60.0 (>35); GLUCOSE, FASTING 185 MG/DL (70-100); MAGNESIUM LEVEL 1.8 MG/DL (1.8-2.4); POTASSIUM SERUM 3.9 MEQ/L (3.5-5.1); SODIUM LEVEL 137 MEQ/L (136-145)
[2019-01-19] MEDS: RANOLAZINE 500 MG ER TAB PO SCH ×2 (10:08→22:29)
[2019-01-19] MEDS: OMEGA-3 1000MG CAPSULE PO SCH (10:08)
[2019-01-19] MEDS: MULTIVITAMINS/MINERALS THERAP 1 TAB PO SCH (10:08)
[2019-01-19] MEDS: ASCORBIC ACID 500 MG TAB PO SCH (10:08)
[2019-01-19] MEDS: VITAMIN D 1,000 INTERNATIONAL UNITS TABLET PO SCH (10:08)
[2019-01-19] MEDS: CLOPIDOGREL 75 MG TAB PO SCH (10:09)
[2019-01-19] MEDS: MORPHINE 15 MG SA TAB PO SCH ×2 (10:09→22:30)
[2019-01-19] MEDS: HumaLOG INSULIN (NovoLOG) PER UNIT SC SCH ×4 (10:10→22:24)
[2019-01-19] MEDS: ASPIRIN 81 MG ENTERIC TAB PO SCH (10:10)
[2019-01-19] MEDS: PYRIDOSTIGMINE 60 MG TAB PO SCH ×3 (10:10→22:30)
[2019-01-19] MEDS: TIOTROPIUM INHALER/CAPSULE (SPIRIVA) INH SCH (10:20)
--- NOTE | 2019-01-19 13:20 | IPNPDOC ---
Text Note Date of Service The patient was seen on 01/19/19. NOTE Subjective: Patient was seen and examined at the bedside. This morning patient does not have any new complaints. Currently, denies any nausea, vomiting, abdominal pain, constipation or diarrhea. Has been working with physical therapy. He is waiting for the DLCO brace. Objective: Vitals (See below) General: Lying in bed, no acute distress, comfortable, AAOx3 HEENT: NC, AT CVS: RRR, +S1S2, no rub murmur or gallop Lungs: Fair air entry b/l, rhonchi appreciated at right lung base. No evidence of wheezing or crackles Abdomen: Soft, ND without tenderness Extremities: No edema of lower extremity, - Calf tenderness Neuro: 5/5 muscle strength at bilateral lower extremities still remains Radiology: - CT lumbar spine 01/13: 1. Minimal central canal stenosis at the L1-2 level secondary to disc bulge, ligamentous and facet hypertrophy. 2. Mild central canal stenosis at the L2-3 level secondary to disc bulge, ligamentous and facet hypertrophy. 3. Moderate central canal stenosis at the L3-4 level secondary to disc bulge, disc extrusion, ligamentous and facet hypertrophy. There is compression of the right L3 nerves in the neural foramina. 4. Severe central canal stenosis at the L4-5 level secondary to disc bulge, ligamentous and facet hypertrophy. There is compression of the L4 nerves in the neural foramina. 5. Diffuse disc bulge at the L5-S1 level with minimal thecal sac compression. There is compression of the left L5 nerve in the neural foramen. - XR L-Spine 01/16: Wedge compression fracture deformity at T12 with approximately 50% loss of anterior vertebral body height. This is new from the November 23, 2018 CT study of the lumbar spine. Diffuse degenerative spondylosis changes. CT thoracic spine: There is a small central disc protrusion, which is calcified at the T7-8 level. This appears to subtly indents the thecal sac. Assessment and plan: Patient is an 83 year old male with a PMHx of Chronic Diastolic CHF, Hx of TAVR, Hx of Complete heart block s/p Dual chamber PM, HTN, DM2, DLP, Myasthenia gravis, Severe spinal stenosis, CKD3, Neuropathy who presented to the ER with severe pain causing him to have difficulty with ambulation. Patient has been taking pain control medications at home, however, it has not been effective. Patient has been admitted to the hospital service for further evaluation and treatment. Acute on chronic intractable Back pain - Due to T12 compression fracture and severe spinal stenosis. - Patient has been ambulating without much difficulty, however has not yet cleared physical therapy - Patient still reports some back pain, although it is significantly improved from admission - No focal neurologic deficits - c/w MS Contin and Percocet PRN; s/p Morphine - c/w PT - not cleared; c/w OT - has cleared - ARU screen pending - Orthopedic surgery advised brace if there is difficulty in mobilization but patient moving fine. Leukocytosis -this is likely reactive to pain from fracture. - I do not see any pneumonia may have atelectasis - Sputum only a few organisms which are oral pee. - will stop levofloxain - will give incentive spirometry COPD -continue spiriva and albuterol prn DANNY - Cr baseline of 0.9-1.1 - resolved. Chronic Diastolic CHF - no evidence of exacerbation - ECHO 03/2018: EF 60-65%, G1DD, Mild-moderate pulmonary HTN - Does not take any diuretics as an outpatient Hx of TAVR / CAD - c/w ASA, Plavix, Ranolazine Hx of Complete heart block s/p Dual chamber PM HTN - BP well controlled - s/p Lisinopril (re: elevated Cr) - c/w Amlodipine DM2 with hypoglycemic episodes - Will discontinue Levemir - Has been eating meals despite reporting a poor appetite - c/w ISS DLP - c/w [place] 3 fatty acids Myasthenia gravis - c/w Pyridostigmine Neuropathy DVT prophylaxis - c/w SCDs Disposition: - Awaiting PT / OT clearance - Orthopedic consult VS,Gisella, I+O VS, Gisella, I+O Laboratory Tests 01/19/19 06:20 Red Blood Count 4.27 L, Mean Corpuscular Volume 88.1, Mean Corpuscular Hemoglobin 27.2, Mean Corpuscular Hemoglobin Concent 30.9 L, Red Cell Distribution Width 13.3, Neutrophils (%) (Auto) 66.3 H, Lymphocytes (%) (Auto) 14.2 L, Monocytes (%) (Auto) 11.6 H, Eosinophils (%) (Auto) 7.0 H, Basophils (%) (Auto) 0.5, Neutrophils # (Auto) 6.4, Lymphocytes # (Auto) 1.4 L, Monocytes # (Auto) 1.1 H, Eosinophils # (Auto) 0.7 H, Basophils # (Auto) 0.1, Calcium Level 8.6 L Vital Signs Date Time Temp Pulse Resp B/P (MAP) Pulse Ox O2 Delivery O2 Flow Rate FiO2 01/19/19 10:12 87 124/60 01/19/19 10:09 18 01/19/19 06:00 98.0 90 I&O- Last 24 Hours up to 6 AM 01/19/19 06:00 Intake Total 540 ml Output Total 700 ml Balance -160 ml ROGERIO HERNANDEZ MD Jan 19, 2019 13:20
[2019-01-19 14:00] VITALS: BP 126/61
[2019-01-19 14:24] LABS: BODY FLUID CULTURE Not Indicated (.); LEGIONELLA ANTIGEN URINE Negative (Negative); ORGANISM ID Not indicated. (.); SPECIMEN SOURCE Urine (.); URINE STREP PNEUMONIAE ANTIGEN Negative (Negative)
[2019-01-19 22:00] VITALS: BP 123/63
[2019-01-20 06:00] VITALS: BP 140/66
[2019-01-20 06:25] LABS: BASO # 0.1 10^3/uL (0.0-0.2); BASO % 0.5 % (0.0-1.0); EOS # 0.5 10^3/uL (0.0-0.50); EOS % 5.4 % (0.0-3.0); HEMATOCRIT 35.6 % (42.0-52.0); HEMOGLOBIN 11.3 g/dl (13.5-17.5); LYMPH # 1.3 10^3/uL (1.5-4.5); LYMPH % 12.8 % (24.0-44.0); MEAN CORPUSCULAR HEMOGLOBIN 27.3 pg (27.0-33.0); MEAN CORPUSCULAR HGB CONC 31.7 g/dl (32.0-36.5); MONO # 1.2 10^3/uL (0.0-0.8); NEUTROPHILS # 6.8 10^3/uL (1.8-7.7); NEUTROPHILS % 68.9 % (36.0-66.0); PLATELET COUNT, AUTOMATED 301 10^3/uL (150-450); RED BLOOD COUNT 4.14 10^6/uL (4.30-6.10); WHITE BLOOD COUNT 9.9 10^3/uL (4.0-10.0)
[2019-01-20 07:03] LABS: BLOOD UREA NITROGEN 14 MG/DL (7-18); C REACTIVE PROTEIN QUANTITATIV 8.23 MG/DL (0.00-0.30); CALCIUM LEVEL 8.4 MG/DL (8.8-10.2); CARBON DIOXIDE LEVEL 34 MEQ/L (21-32); CHLORIDE LEVEL 100 MEQ/L (98-107); CREATININE FOR GFR 0.91 MG/DL (0.70-1.30); GLOMERULAR FILTRATION RATE > 60.0 (>35); GLUCOSE, FASTING 207 MG/DL (70-100); MAGNESIUM LEVEL 1.9 MG/DL (1.8-2.4); SODIUM LEVEL 138 MEQ/L (136-145)
[2019-01-20] MEDS: TIOTROPIUM INHALER/CAPSULE (SPIRIVA) INH SCH (07:49)
[2019-01-20] MEDS: VITAMIN D 1,000 INTERNATIONAL UNITS TABLET PO SCH (09:09)
[2019-01-20] MEDS: CLOPIDOGREL 75 MG TAB PO SCH (09:09)
[2019-01-20] MEDS: RANOLAZINE 500 MG ER TAB PO SCH ×2 (09:09→21:00)
[2019-01-20] MEDS: ASPIRIN 81 MG ENTERIC TAB PO SCH (09:10)
[2019-01-20] MEDS: MULTIVITAMINS/MINERALS THERAP 1 TAB PO SCH (09:10)
[2019-01-20] MEDS: OMEGA-3 1000MG CAPSULE PO SCH (09:10)
[2019-01-20] MEDS: ASCORBIC ACID 500 MG TAB PO SCH (09:10)
[2019-01-20] MEDS: MORPHINE 15 MG SA TAB PO SCH ×2 (09:10→21:00)
[2019-01-20] MEDS: PYRIDOSTIGMINE 60 MG TAB PO SCH ×3 (09:10→21:00)
[2019-01-20] MEDS: HumaLOG INSULIN (NovoLOG) PER UNIT SC SCH ×4 (09:11→21:00)
[2019-01-20 14:00] VITALS: BP 148/76
[2019-01-20 22:00] VITALS: BP 137/63
[2019-01-21 06:00] VITALS: BP 150/72
[2019-01-21] MEDS: TIOTROPIUM INHALER/CAPSULE (SPIRIVA) INH SCH (08:20)
[2019-01-21] MEDS: VITAMIN D 1,000 INTERNATIONAL UNITS TABLET PO SCH (08:26)
[2019-01-21] MEDS: MORPHINE 15 MG SA TAB PO SCH ×2 (08:26→21:00)
[2019-01-21] MEDS: PYRIDOSTIGMINE 60 MG TAB PO SCH ×3 (08:27→21:00)
[2019-01-21] MEDS: ASPIRIN 81 MG ENTERIC TAB PO SCH (08:27)
[2019-01-21] MEDS: CLOPIDOGREL 75 MG TAB PO SCH (08:27)
[2019-01-21] MEDS: HumaLOG INSULIN (NovoLOG) PER UNIT SC SCH ×4 (08:27→21:00)
[2019-01-21] MEDS: MULTIVITAMINS/MINERALS THERAP 1 TAB PO SCH (08:27)
[2019-01-21] MEDS: OMEGA-3 1000MG CAPSULE PO SCH (08:27)
[2019-01-21] MEDS: RANOLAZINE 500 MG ER TAB PO SCH ×2 (08:27→21:00)
[2019-01-21] MEDS: ASCORBIC ACID 500 MG TAB PO SCH (08:27)
[2019-01-21 22:00] VITALS: BP 144/61
[2019-01-22 06:00] VITALS: BP 146/68
[2019-01-22] MEDS: TIOTROPIUM INHALER/CAPSULE (SPIRIVA) INH SCH (08:00)
[2019-01-22] MEDS: MULTIVITAMINS/MINERALS THERAP 1 TAB PO SCH (08:22)
[2019-01-22] MEDS: PYRIDOSTIGMINE 60 MG TAB PO SCH ×3 (08:22→21:00)
[2019-01-22] MEDS: RANOLAZINE 500 MG ER TAB PO SCH ×2 (08:22→21:45)
[2019-01-22] MEDS: ASCORBIC ACID 500 MG TAB PO SCH (08:22)
[2019-01-22] MEDS: OMEGA-3 1000MG CAPSULE PO SCH (08:22)
[2019-01-22] MEDS: VITAMIN D 1,000 INTERNATIONAL UNITS TABLET PO SCH (08:22)
[2019-01-22] MEDS: ASPIRIN 81 MG ENTERIC TAB PO SCH (08:22)
[2019-01-22] MEDS: CLOPIDOGREL 75 MG TAB PO SCH (08:22)
[2019-01-22] MEDS: MORPHINE 15 MG SA TAB PO SCH ×2 (08:23→21:45)
[2019-01-22] MEDS: HumaLOG INSULIN (NovoLOG) PER UNIT SC SCH ×4 (08:23→21:00)
[2019-01-23 06:00] VITALS: BP 139/63
[2019-01-23] MEDS: MULTIVITAMINS/MINERALS THERAP 1 TAB PO SCH (10:03)
[2019-01-23] MEDS: MORPHINE 15 MG SA TAB PO SCH ×2 (10:03→22:00)
[2019-01-23] MEDS: RANOLAZINE 500 MG ER TAB PO SCH ×2 (10:03→21:59)
[2019-01-23] MEDS: VITAMIN D 1,000 INTERNATIONAL UNITS TABLET PO SCH (10:03)
[2019-01-23] MEDS: OMEGA-3 1000MG CAPSULE PO SCH (10:04)
[2019-01-23] MEDS: ASCORBIC ACID 500 MG TAB PO SCH (10:04)
[2019-01-23] MEDS: PYRIDOSTIGMINE 60 MG TAB PO SCH ×3 (10:04→22:00)
[2019-01-23] MEDS: ASPIRIN 81 MG ENTERIC TAB PO SCH (10:04)
[2019-01-23] MEDS: CLOPIDOGREL 75 MG TAB PO SCH (10:05)
[2019-01-23] MEDS: HumaLOG INSULIN (NovoLOG) PER UNIT SC SCH ×4 (10:06→21:54)
[2019-01-23] MEDS: TIOTROPIUM INHALER/CAPSULE (SPIRIVA) INH SCH (12:06)
--- NOTE | 2019-01-23 15:37 | NUR ---
Pt. reluctantly and minimally participated in this examination whereby results are limited. Pt. interacted with this examiner well until tasks were challenging. When tasks did become challenging, Pt felt as though he was being tricked. Pt repeatedly indicated that he all he wants is to go home. Pt. did not accept rationale provided that these tasks could help in determining his level of safety if he were to return home where he lives alone without immediate support from family. Pt reported that he still drives and manages his own medication. When asked to draw a clock, Pt began with writing numbers 1-15 using 2/3 of the [place]. When asked to try again, he used numbers 1-19 and began using a second row of numbers. Upon providing him with hour cues, he became agitated and refused to complete the task. This tech writer feels that he may function better within his own environment but is not willing to demonstrate mastery of ADL tasks to ensure safety. Recommend: supervision and teaching in ADL tasks for safety purposes whether it be with family or a rehabilitation setting. Addendum: 01/23/19 at 1538 by ISAK MENDIOLA [facility] MAMIE Amended: Links added.
[2019-01-24 06:00] VITALS: BP 151/72
[2019-01-24] MEDS: TIOTROPIUM INHALER/CAPSULE (SPIRIVA) INH SCH (08:36)
[2019-01-24] MEDS: ASCORBIC ACID 500 MG TAB PO SCH (09:43)
[2019-01-24] MEDS: PYRIDOSTIGMINE 60 MG TAB PO SCH ×3 (09:43→21:56)
[2019-01-24] MEDS: HumaLOG INSULIN (NovoLOG) PER UNIT SC SCH ×4 (09:43→20:11)
[2019-01-24] MEDS: OMEGA-3 1000MG CAPSULE PO SCH (09:43)
[2019-01-24] MEDS: ASPIRIN 81 MG ENTERIC TAB PO SCH (09:44)
[2019-01-24] MEDS: CLOPIDOGREL 75 MG TAB PO SCH (09:44)
[2019-01-24] MEDS: MULTIVITAMINS/MINERALS THERAP 1 TAB PO SCH (09:44)
[2019-01-24] MEDS: RANOLAZINE 500 MG ER TAB PO SCH ×2 (09:45→21:56)
[2019-01-24] MEDS: VITAMIN D 1,000 INTERNATIONAL UNITS TABLET PO SCH (09:45)
[2019-01-24 10:00] VITALS: BP 140/60
[2019-01-24] MEDS: MORPHINE 15 MG SA TAB PO SCH ×2 (11:28→21:57)
[2019-01-24 14:00] VITALS: BP 142/70
[2019-01-25 06:00] VITALS: BP 140/66
[2019-01-25] MEDS: TIOTROPIUM INHALER/CAPSULE (SPIRIVA) INH SCH (07:33)
[2019-01-25] MEDS: RANOLAZINE 500 MG ER TAB PO SCH ×2 (10:08→20:19)
[2019-01-25] MEDS: ASCORBIC ACID 500 MG TAB PO SCH (10:08)
[2019-01-25] MEDS: VITAMIN D 1,000 INTERNATIONAL UNITS TABLET PO SCH (10:08)
[2019-01-25] MEDS: MULTIVITAMINS/MINERALS THERAP 1 TAB PO SCH (10:08)
[2019-01-25] MEDS: OMEGA-3 1000MG CAPSULE PO SCH (10:09)
[2019-01-25] MEDS: PYRIDOSTIGMINE 60 MG TAB PO SCH ×3 (10:09→20:19)
[2019-01-25] MEDS: MORPHINE 15 MG SA TAB PO SCH ×2 (10:10→20:20)
[2019-01-25] MEDS: CLOPIDOGREL 75 MG TAB PO SCH (10:10)
[2019-01-25] MEDS: ASPIRIN 81 MG ENTERIC TAB PO SCH (10:10)
[2019-01-25] MEDS: HumaLOG INSULIN (NovoLOG) PER UNIT SC SCH ×4 (10:11→21:00)
--- NOTE | 2019-01-25 14:59 | NUR ---
Pt seen at bedside today. Pt is refusing to eat much indicating that the food is terrible. Pt insisted that the noodles in his chicken noodle soup was chicken skin. Problem solving tasks attempted with poor responses provided from the Pt. Pt responses are vague. When asked if he makes his own meals and if so what, Pt responded with "everything". When asked if he uses a stove or oven, he indicated simple "yes". Pt repeatedly said, "You are ruining my life". Pt could not rationalize or come to reason that his safety was our main concern upon return home. Conversation is not cohesive. When Pt was trying to explain that a mercerizer machine operator lived next door, he also indicated that there was a soccer field which Pt said that [facility] could use. When conversation turned to his ability to pay bills, Pt indicated that he uses mail to pay his bills and is very upset that he was not let out of the hospital to do such. 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 Per initial evaluation and based on behaviors today, visual planning, perception and processing are poor. MD may want to consider restricting driving license. Addendum: 01/25/19 at 1513 by ISAK JAMIL MAMIE Amended: Links added.
[2019-01-25] MEDS: SENOKOT S TAB PO PRN (22:01)
[2019-01-26 06:00] VITALS: BP 134/66
[2019-01-26] MEDS: TIOTROPIUM INHALER/CAPSULE (SPIRIVA) INH SCH (08:33)
[2019-01-26] MEDS: ASCORBIC ACID 500 MG TAB PO SCH (08:40)
[2019-01-26] MEDS: CLOPIDOGREL 75 MG TAB PO SCH (08:41)
[2019-01-26] MEDS: OMEGA-3 1000MG CAPSULE PO SCH (08:41)
[2019-01-26] MEDS: ASPIRIN 81 MG ENTERIC TAB PO SCH (08:41)
[2019-01-26] MEDS: VITAMIN D 1,000 INTERNATIONAL UNITS TABLET PO SCH (08:41)
[2019-01-26] MEDS: RANOLAZINE 500 MG ER TAB PO SCH ×2 (08:41→21:33)
[2019-01-26] MEDS: MULTIVITAMINS/MINERALS THERAP 1 TAB PO SCH (08:41)
[2019-01-26] MEDS: PYRIDOSTIGMINE 60 MG TAB PO SCH ×3 (08:42→21:33)
[2019-01-26] MEDS: MORPHINE 15 MG SA TAB PO SCH ×2 (08:42→21:33)
[2019-01-26] MEDS: HumaLOG INSULIN (NovoLOG) PER UNIT SC SCH ×4 (08:43→21:00)
--- NOTE | 2019-01-26 16:00 | NUR ---
Pt presented with improved mentation today in regards to answering questions directly. Pt. was not so vague today. He answered consistently that he had an electric stove and that he enjoys/cooks pasta often. Observed perseveration of prior topic when trying to generate town names and business types. Improved demeanor today. Will continue to follow for cognitive targets. Addendum: 01/26/19 at 1603 by ISAK MENDIOLA [facility] MAMIE Amended: Links added.
[2019-01-27 06:00] VITALS: BP 160/71
[2019-01-27] MEDS: TIOTROPIUM INHALER/CAPSULE (SPIRIVA) INH SCH (08:16)
[2019-01-27] MEDS: ASCORBIC ACID 500 MG TAB PO SCH (09:56)
[2019-01-27] MEDS: VITAMIN D 1,000 INTERNATIONAL UNITS TABLET PO SCH (09:56)
[2019-01-27] MEDS: OMEGA-3 1000MG CAPSULE PO SCH (09:56)
[2019-01-27] MEDS: HumaLOG INSULIN (NovoLOG) PER UNIT SC SCH ×4 (09:56→21:00)
[2019-01-27] MEDS: MORPHINE 15 MG SA TAB PO SCH ×2 (09:57→21:13)
[2019-01-27] MEDS: ASPIRIN 81 MG ENTERIC TAB PO SCH (09:57)
[2019-01-27] MEDS: PYRIDOSTIGMINE 60 MG TAB PO SCH ×3 (09:57→21:13)
[2019-01-27] MEDS: RANOLAZINE 500 MG ER TAB PO SCH ×2 (09:58→21:13)
[2019-01-27] MEDS: CLOPIDOGREL 75 MG TAB PO SCH (09:58)
[2019-01-27] MEDS: MULTIVITAMINS/MINERALS THERAP 1 TAB PO SCH (09:58)
--- NOTE | 2019-01-27 15:49 | NUR ---
Pt tearful and frustrated throughout session. Statements such as "I am way behind on my bills. I've lost it." Pt indicated that he has lost his motivation. He recalled personal information about his children's names & where they are living, and described the situation which brought him to the hospital. 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 Addendum: 01/27/[address] [facility] MAMIE Amended: Links added.
[2019-01-28 06:00] VITALS: BP 115/62
[2019-01-28] MEDS: HumaLOG INSULIN (NovoLOG) PER UNIT SC SCH ×4 (09:52→20:37)
[2019-01-28] MEDS: PYRIDOSTIGMINE 60 MG TAB PO SCH ×3 (09:58→20:37)
[2019-01-28] MEDS: ASPIRIN 81 MG ENTERIC TAB PO SCH (09:58)
[2019-01-28] MEDS: OMEGA-3 1000MG CAPSULE PO SCH (09:59)
[2019-01-28] MEDS: ASCORBIC ACID 500 MG TAB PO SCH (09:59)
[2019-01-28] MEDS: RANOLAZINE 500 MG ER TAB PO SCH ×2 (10:00→20:37)
[2019-01-28] MEDS: VITAMIN D 1,000 INTERNATIONAL UNITS TABLET PO SCH (10:00)
[2019-01-28] MEDS: CLOPIDOGREL 75 MG TAB PO SCH (10:01)
[2019-01-28] MEDS: MULTIVITAMINS/MINERALS THERAP 1 TAB PO SCH (10:01)
[2019-01-28] MEDS: MORPHINE 15 MG SA TAB PO SCH ×2 (10:03→20:37)
[2019-01-28] MEDS: TIOTROPIUM INHALER/CAPSULE (SPIRIVA) INH SCH (10:05)
[2019-01-28 22:00] VITALS: BP 141/64
[2019-01-29 06:00] VITALS: BP 122/59
[2019-01-29 10:06] LABS: HEMATOCRIT 39.8 % (42.0-52.0); HEMOGLOBIN 12.2 g/dl (13.5-17.5); MEAN CORPUSCULAR HEMOGLOBIN 27.4 pg (27.0-33.0); MEAN CORPUSCULAR HGB CONC 30.7 g/dl (32.0-36.5); MEAN CORPUSCULAR VOLUME 89.2 fl (80.0-96.0); PLATELET COUNT, AUTOMATED 371 10^3/uL (150-450); RED BLOOD COUNT 4.46 10^6/uL (4.30-6.10); WHITE BLOOD COUNT 8.2 10^3/uL (4.0-10.0)
[2019-01-29] MEDS: HumaLOG INSULIN (NovoLOG) PER UNIT SC SCH ×4 (10:43→20:42)
[2019-01-29 10:45] LABS: BLOOD UREA NITROGEN 12 MG/DL (7-18); CALCIUM LEVEL 8.4 MG/DL (8.8-10.2); CARBON DIOXIDE LEVEL 35 MEQ/L (21-32); CHLORIDE LEVEL 102 MEQ/L (98-107); CREATININE FOR GFR 1.12 MG/DL (0.70-1.30); GLOMERULAR FILTRATION RATE > 60.0 (>35); GLUCOSE, FASTING 269 MG/DL (70-100); MAGNESIUM LEVEL 1.9 MG/DL (1.8-2.4); POTASSIUM SERUM 3.9 MEQ/L (3.5-5.1); SODIUM LEVEL 139 MEQ/L (136-145)
[2019-01-29] MEDS: MORPHINE 15 MG SA TAB PO SCH ×2 (10:45→20:35)
[2019-01-29] MEDS: ASPIRIN 81 MG ENTERIC TAB PO SCH (10:45)
[2019-01-29] MEDS: MULTIVITAMINS/MINERALS THERAP 1 TAB PO SCH (10:45)
[2019-01-29] MEDS: VITAMIN D 1,000 INTERNATIONAL UNITS TABLET PO SCH (10:46)
[2019-01-29] MEDS: RANOLAZINE 500 MG ER TAB PO SCH ×2 (10:46→20:34)
[2019-01-29] MEDS: OMEGA-3 1000MG CAPSULE PO SCH (10:46)
[2019-01-29] MEDS: CLOPIDOGREL 75 MG TAB PO SCH (10:46)
[2019-01-29] MEDS: PYRIDOSTIGMINE 60 MG TAB PO SCH ×3 (10:46→20:34)
[2019-01-29] MEDS: ASCORBIC ACID 500 MG TAB PO SCH (10:47)
[2019-01-29] MEDS: TIOTROPIUM INHALER/CAPSULE (SPIRIVA) INH SCH (11:46)
--- NOTE | 2019-01-29 14:13 | IPN ---
DATE: 01/29/2019 SUBJECTIVE: Patient is seen and examined in the room today. Patient denies any acute complaints. Patient has a brace on and tolerating the brace well. No events reported. OBJECTIVE: VITAL SIGNS: Temperature 97.3, pulse 69, respiration 18, blood pressure 122/59, pulse ox 92% in room air. GENERAL: Patient is alert and awake and comfortable. HEENT: Normocephalic, atraumatic. Extraocular muscles intact. CARDIOVASCULAR: S1, S2, regular rate. LUNGS: Clear to auscultation bilaterally. ABDOMEN: Soft, nontender, nondistended. EXTREMITIES: No edema. LABORATORY DATA: WBC 8.3, hemoglobin 12.3, hematocrit 39.9, platelet count 371. Sodium 139, potassium 3.9, chloride 102, carbon dioxide 35, BUN 12, creatinine 1.12, GFR greater than 60, fasting glucose 269, calcium 8.4, magnesium 1.9. ASSESSMENT/PLAN: 1. Acute on chronic intractable back pain. Patient has a T12 compression fracture and severe spinal stenosis. Patient has a brace in place. Continue with physical therapy. conditioning room worker assisting on the patient's disposition. 2. Leukocytosis: Suspected due to acute stress, resolved. 3. Chronic obstructive pulmonary disease (COPD): Continue as needed breathing treatment. No exacerbation at this moment. 4. History of acute kidney injury (DANNY): Renal function in normal range. 5. Chronic diastolic congestive heart failure: No sign of exacerbation. 6. History of transcatheter aortic valve replacement (TAVR) and coronary artery disease (CAD). Continue aspirin and Plavix and ranolazine. 7. Hypertension: Blood pressure in acceptable range on Norvasc. 8. Diabetes: On insulin sliding scale. 9. Myasthenia gravis: On pyridostigmine. 10. Deep venous thrombosis (DVT): On clinical compression.
[2019-01-30 06:00] VITALS: BP 156/81
[2019-01-30] MEDS: TIOTROPIUM INHALER/CAPSULE (SPIRIVA) INH SCH (08:06)
[2019-01-30] MEDS: ASPIRIN 81 MG ENTERIC TAB PO SCH (09:28)
[2019-01-30] MEDS: ASCORBIC ACID 500 MG TAB PO SCH (09:28)
[2019-01-30] MEDS: PYRIDOSTIGMINE 60 MG TAB PO SCH ×3 (09:28→21:52)
[2019-01-30] MEDS: RANOLAZINE 500 MG ER TAB PO SCH ×2 (09:28→21:51)
[2019-01-30] MEDS: OMEGA-3 1000MG CAPSULE PO SCH (09:29)
[2019-01-30] MEDS: MORPHINE 15 MG SA TAB PO SCH ×2 (09:29→21:52)
[2019-01-30] MEDS: MULTIVITAMINS/MINERALS THERAP 1 TAB PO SCH (09:29)
[2019-01-30] MEDS: CLOPIDOGREL 75 MG TAB PO SCH (09:30)
[2019-01-30] MEDS: VITAMIN D 1,000 INTERNATIONAL UNITS TABLET PO SCH (09:30)
[2019-01-30] MEDS: HumaLOG INSULIN (NovoLOG) PER UNIT SC SCH ×4 (09:31→21:53)
[2019-01-30 22:00] VITALS: BP 150/66
[2019-01-31 06:00] VITALS: BP 138/60
[2019-01-31] MEDS: CLOPIDOGREL 75 MG TAB PO SCH (08:22)
[2019-01-31] MEDS: MULTIVITAMINS/MINERALS THERAP 1 TAB PO SCH (08:22)
[2019-01-31] MEDS: OMEGA-3 1000MG CAPSULE PO SCH (08:22)
[2019-01-31] MEDS: VITAMIN D 1,000 INTERNATIONAL UNITS TABLET PO SCH (08:22)
[2019-01-31] MEDS: RANOLAZINE 500 MG ER TAB PO SCH (08:22)
[2019-01-31] MEDS: PYRIDOSTIGMINE 60 MG TAB PO SCH (08:22)
[2019-01-31] MEDS: ASCORBIC ACID 500 MG TAB PO SCH (08:22)
[2019-01-31 08:23] VITALS: BP 140/65
[2019-01-31] MEDS: TIOTROPIUM INHALER/CAPSULE (SPIRIVA) INH SCH (08:23)
[2019-01-31] MEDS: MORPHINE 15 MG SA TAB PO SCH (08:23)
[2019-01-31] MEDS: HumaLOG INSULIN (NovoLOG) PER UNIT SC SCH ×2 (08:24→12:00)
[2019-01-31] MEDS: ASPIRIN 81 MG ENTERIC TAB PO SCH (08:24)
[2019-01-31] MEDS ORDERED: INSULANT SC (12:54)
--- NOTE | 2019-01-31 18:41 | DS.PDOC ---
Discharge Summary General Date of Admission Jan 16, 2019 at 11:13 Date of Discharge 01/31/19 Specialist/Consultants Involve: SAMUEL DENT MD Discharge Summary PROCEDURES PERFORMED DURING STAY: None. ADMITTING/DISCHARGE DIAGNOSES: Acute on chronic intractable Back pain Wedge compression fracture deformity at T12 History of COPD Acute kidney injury Chronic diastolic congestive heart failure History of TAVR/CAD History of complete heart block status post dual-chamber pacemaker Diabetes mellitus Dyslipidemia Myasthenia gravis COMPLICATIONS/CHIEF COMPLAINT: Debility Spinal Stenosis. HISTORY OF PRESENT ILLNESS: . 83-year-old male with past medical history of hypertension, diabetes, dyslipidemia, myasthenia gravis, transcatheter aortic valve replacement, diabetic neuropathy, chronic kidney disease, chronic diastolic congestive heart failure, complete heart block status post dual-chamber pacemaker placement presented to the ER with a chief complaint of inability to ambulate due to underlying worsening of spinal stenosis. The patient stated that he had been having severe difficulty walking because of his lower back pain from the aforementioned spinal stenosis. He denied any complaints of fevers, chills, chest pain, palpitations, abdominal pain, numbness/tingling in the genital area, urinary or fecal incontinence, or any nausea/vomiting/diarrhea. The patient was admitted to the hospitalist service for further functional optimization. During hospitalization, imaging of the spine was obtained and is listed below. Physical therapy was ordered and the patient's pain was managed accordingly. The patient has been functionally optimized with physical therapy. Patient family and services was also consulted and have facilitated home services and a safe discharge plan for the patient at this time. Of note, I have asked that the patient to reduce his insulin use to 10 units of basal insulin in the AM, as he was having hypoglycemic episodes on his previous dosing. The patient has verbalized understanding of the same. At this time, the patient states that he is feeling much better and is eager to return home. I've advised the patient follow-up with primary care physician within 7 days. Follow-up with orthopedic surgery as scheduled. Lastly, the patient has been counseled to return to the ER for any acute emergencies. DISCHARGE MEDICATIONS: Please see below. ALLERGIES: Please see below. PHYSICAL EXAMINATION ON DISCHARGE: VITAL SIGNS: Please see below. General: Lying in bed, no acute distress, comfortable, AAOx3 HEENT: NC, AT CVS: RRR, +S1S2, no rub murmur or gallop Lungs: CTA B/L Abdomen: Soft, ND without tenderness Extremities: No edema of lower extremity Neuro: 5/5 muscle strength in the bilateral lower extremities LABORATORY DATA: Please see below. IMAGING: LUMBAR SPINE RADIOGRAPHS: FIVE VIEWS. HISTORY: Low back pain. Comparison is made with CT study of the lumbar spine from November 23, 2018. FINDINGS: There is a wedge-shaped anterior compression fracture deformity at the T12 vertebral body which was not apparent at the time of CT study from November 23, 2018. Lumbar vertebral body heights are preserved. No other fracture or collapse is seen. There is degenerative disc disease with reactive sclerosis and osteophyte formation at each level from L2-3 through L5-S1. There is extensive vascular calcification in a normal caliber aorta and its major branches. Sacrum and SI joints are intact. There are bilateral pelvic or inguinal surgical clips. A mild levoconvex curve is noted. IMPRESSION: Wedge compression fracture deformity at T12 with approximately 50% loss of anterior vertebral body height. This is new from the November 23, 2018 CT study of the lumbar spine. Diffuse degenerative spondylosis changes Chest x-ray: Two views: History: Abnormal breath sounds. Comparison chest x-ray: January 12, 2019. Findings: A bipolar pacemaker remains in the right heart via the left side. The lungs are symmetrically aerated and free of infiltrate. There is slight blunting of the right lateral pleural angle. No other evidence of pleural effusion is seen. The thoracic aorta is calcific and tortuous. The patient is status post aortic valve/stent graft placement. Impression: Status post aortic valve replacement. Pacemaker. Slight blunting of the right lateral pleural angle. Otherwise no acute changes. CT THORACIC SPINE WITHOUT CONTRAST: HISTORY: T12 fracture. Comparison is made with images of the thoracic and lumbar spine from November 23, 2018. Comparison radiographs are from January 16, 2019. CT FINDINGS: CT study confirms the presence of a wedge compression fracture deformity at the T12 vertebral body with principal collapse of the inferior endplate. There is some posterior cortical buckling and retropulsion measuring 5 mm observed producing mild central canal narrowing at the T12 level. There does appear to be some healing sclerosis. No other fracture is seen. There is no evidence of fracture involving the pedicles or posterior elements at T12. There is a small central disc protrusion, which is calcified at the T7-8 level. This appears to subtly indents the thecal sac. No other significant thoracic disc herniation is seen. Vascular calcification is noted fairly extensively. The visualized lung mares show no abnormality. There is degenerative disc disease. IMPRESSION: Wedge compression fracture deformity at T12 with approximately 60% loss of anterior vertebral body heights. There is 5 mm of retropulsion of the posterior cortex inferiorly at T12. Mild central calcified disc protrusion is seen at T7-8. PROGNOSIS: Fair ACTIVITY: As tolerated. DIET: 2 g low sodium, carb consistent diet DISCHARGE PLAN: DISPOSITION: 01 Home, Self-Care. DISCHARGE INSTRUCTIONS: I've advised the patient follow-up with primary care physician within 7 days. Follow-up with orthopedic surgery as scheduled. Lastly, the patient has been counseled to return to the ER for any acute emergencies. DISCHARGE CONDITION: Stable. TIME SPENT ON DISCHARGE: Greater than 30 minutes. Vital Signs/I&Os Vital Signs Date Time Temp Pulse Resp B/P (MAP) Pulse Ox O2 Delivery O2 Flow Rate FiO2 01/31/19 08:23 18 01/31/19 08:23 72 140/65 01/31/19 06:00 98.7 93 I&O- Last 24 Hours up to 6 AM 01/31/19 06:00 Intake Total 1355 ml Output Total 120 ml Balance 1235 ml Laboratory Data Labs 24H Laboratory Tests 2 01/30/19 20:46: Bedside Glucose (Misc Panel) 100 01/31/19 05:05: Bedside Glucose (Misc Panel) 161H FSBS Laboratory Tests Test 01/30/19 20:46 01/31/19 05:05 Range/Units Bedside Glucose (Misc Panel) 100 161 83-110 MG/DL Discharge Medications Scheduled (Certavite/Antioxidants) 1 Tab Tab, 1 TAB PO DAILY, (Reported) Amlodipine Besylate (Norvasc) 2.5 Mg Tab, 2.5 MG PO DAILY, (Reported) Ascorbic Acid (Vitamin C) 500 Mg Cap, 500 MG PO DAILY, (Reported) Aspirin (Aspirin EC) 81 Mg Tab, 81 MG PO DAILY, (Reported) Clopidogrel Bisulfate (Plavix) 75 Mg Tab, 75 MG PO DAILY, (Reported) Fish Oil (Fish Oil) 1,000 Mg Cap, 1,000 MG PO DAILY, (Reported) Insulin Glargine (Lantus) 1 Units/0.01 Ml Susp, 10 UNITS SC QAM Lisinopril (Lisinopril) 10 Mg Tab, 10 MG PO DAILY, (Reported) Pyridostigmine [place] (Pyridostigmine [place]) 60 Mg Tab, 60 MG PO TID, (Reported) Ranolazine (Ranexa) 500 Mg Chary, 500 MG PO BID, (Reported) PT TAKES QAM AND QHS Tiotropium [place] Monohydrate (Spiriva Handihaler) 18 Mcg Cap, 1 INHALATION INH DAILY, (Reported) Vitamin D (Vitamin D3) 1,000 Units Tab, 2,000 UNITS PO DAILY, (Reported) Scheduled PRN Acetaminophen/Hydrocodone ([place] 5-325 mg) 1 Tab Tab, 1 TAB PO BID PRN for PAIN, (Reported) Meclizine HCl (Meclizine 25) 25 Mg Tab, 25 MG PO TID PRN for DIZZINESS, (Reported) Allergies Coded Allergies: Penicillins (Verified Allergy, Severe, ANAPHYLAXIS, 01/10/19) Shellfish Allergy (Verified Allergy, Severe, ANAPHYLAXIS, 01/10/19) FORTUNATO HERRMANN MD Jan 31, 2019 18:41
== END 2019-01-31 14:13 | disposition home health service (06) | DRG 552 ==
LOC: EDBD 13:57 → M ED 13:57 → M ED INP 15:15 → M MSPAV 18:51 → OBSVTOIN 01-16 11:13
PROVIDERS: ADMIT Internal Medicine; ATTEND Internal Medicine
DX: S22.080A Wedge compression fracture of T11-T12 vertebra, initial encounter for closed fracture (principal); J98.11 Atelectasis; I50.32 Chronic diastolic (congestive) heart failure; I13.0 Hypertensive heart and chronic kidney disease with heart failure and stage 1 through stage 4 chronic kidney disease, or unspecified chronic kidney disease; M48.061 Spinal stenosis, lumbar region without neurogenic claudication; E11.40 Type 2 diabetes mellitus with diabetic neuropathy, unspecified; J44.9 Chronic obstructive pulmonary disease, unspecified; E78.5 Hyperlipidemia, unspecified; G70.00 Myasthenia gravis without (acute) exacerbation; N18.3 Chronic kidney disease, stage 3 (moderate); M51.26 Other intervertebral disc displacement, lumbar region; D72.829 Elevated white blood cell count, unspecified; E11.649 Type 2 diabetes mellitus with hypoglycemia without coma; E11.22 Type 2 diabetes mellitus with diabetic chronic kidney disease; Z88.0 Allergy status to penicillin; Z91.013 Allergy to seafood; Z87.891 Personal history of nicotine dependence; Z79.02 Long term (current) use of antithrombotics/antiplatelets; Z79.82 Long term (current) use of aspirin; Z79.4 Long term (current) use of insulin; Z79.899 Other long term (current) drug therapy; Z95.2 Presence of prosthetic heart valve; Z95.0 Presence of cardiac pacemaker; X58.XXXA Exposure to other specified factors, initial encounter; Y92.9 Unspecified place or not applicable

== ENCOUNTER 2019-02-02 11:21 | Emergency (ER) | payer OTHER ==
[~2019-02-02] VITALS: Ht 177.8 cm; Wt 77.3 kg
[~2019-02-02 11:21] MED LIST changes: +AMLO25TA PO; +CERTTAB3 PO; +LANTINJ4 SC; +RANO5TAB PO; +SPIR1CAP INH; +TIOT18INH INH; +VITA500C24 PO; +VITAD1000T PO
[2019-02-02] MEDS ORDERED: NS 500 ML IV ONE (11:45)
[2019-02-02 12:02] LABS: HEMATOCRIT 45.9 % (42.0-52.0); HEMOGLOBIN 14.2 g/dl (13.5-17.5); MEAN CORPUSCULAR HEMOGLOBIN 27.4 pg (27.0-33.0); MEAN CORPUSCULAR HGB CONC 30.9 g/dl (32.0-36.5); MEAN CORPUSCULAR VOLUME 88.6 fl (80.0-96.0); PLATELET COUNT, AUTOMATED 459 10^3/uL (150-450); RED BLOOD COUNT 5.18 10^6/uL (4.30-6.10); WHITE BLOOD COUNT 11.1 10^3/uL (4.0-10.0)
[2019-02-02 13:22] LABS: ALBUMIN 3.1 GM/DL (3.2-5.2); ALT/SGPT 17 U/L (12-78); BILIRUBIN,TOTAL 0.6 MG/DL (0.2-1.0); BLOOD UREA NITROGEN 12 MG/DL (7-18); CALCIUM LEVEL 9.4 MG/DL (8.8-10.2); CARBON DIOXIDE LEVEL 28 MEQ/L (21-32); CHLORIDE LEVEL 103 MEQ/L (98-107); CPK CREATINE PHOSPHOKINASE 55 U/L (39-308); CREATININE FOR GFR 1.17 MG/DL (0.70-1.30); GLOMERULAR FILTRATION RATE > 60.0 (>35); GLUCOSE, FASTING 237 MG/DL (70-100); LIPASE 125 U/L (73-393); MB/CK RELATIVE INDEX 3.82 (< OR =4); POTASSIUM SERUM 3.4 MEQ/L (3.5-5.1); SODIUM LEVEL 141 MEQ/L (136-145); TOTAL PROTEIN 7.5 GM/DL (6.4-8.2); TROPONIN I < 0.02 NG/ML (< 0.10)
[2019-02-02 14:32] LABS: VENOUS BASE EXCESS 3.7 (-2.0-2.0); VENOUS HCO3 30.1 MEQ/L (23.0-27.0); VENOUS O2 SATURATION 68.9 % (60.0-80.0); VENOUS PARTIAL PRESSURE CO2 52.1 mmHg (38.0-50.0); VENOUS PARTIAL PRESSURE O2 37.1 mmHg (30.0-50.0); VENOUS PH 7.379 UNITS (7.330-7.430); VENOUS TOTAL CO2 31.7 MEQ/L (24.0-28.0)
[2019-02-02 14:51] LABS: INR 1.13; PROTHROMBIN TIME 14.7 SECONDS (12.1-14.4)
[2019-02-02] MEDS ORDERED: POTASSIUM CHLORIDE 10 MEQ SR TABLET PO ONE (15:00)
[2019-02-02 17:39] VITALS: BP 146/65
--- NOTE | 2019-02-03 06:20 | ECGEPIP ---
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
== END 2019-02-02 17:41 | disposition home or self-care (01) ==
LOC: EDBD 11:21 → M ED 11:21
DX: A08.4 Viral intestinal infection, unspecified (principal); J44.9 Chronic obstructive pulmonary disease, unspecified; I25.10 Atherosclerotic heart disease of native coronary artery without angina pectoris; E11.9 Type 2 diabetes mellitus without complications; E78.5 Hyperlipidemia, unspecified; Z95.0 Presence of cardiac pacemaker; S22.080A Wedge compression fracture of T11-T12 vertebra, initial encounter for closed fracture; X58.XXXA Exposure to other specified factors, initial encounter; Z88.0 Allergy status to penicillin; Z91.013 Allergy to seafood; Z79.899 Other long term (current) drug therapy; Z79.02 Long term (current) use of antithrombotics/antiplatelets; Z79.4 Long term (current) use of insulin; Z79.82 Long term (current) use of aspirin

== ENCOUNTER 2019-05-29 15:30 | Emergency (ER) | payer MEDICARE, OTHER ==
[~2019-05-29] VITALS: Ht 177.8 cm; Wt 76.4 kg
[~2019-05-29 15:30] MED LIST changes: -NORC1TAB4 PO; +NORC1TAB7 PO; +RANO500T7 PO; -RANO5TAB PO
[2019-05-29 16:28] LABS: BASO # 0.1 10^3/uL (0.0-0.2); BASO % 0.6 % (0.0-1.0); EOS # 0.5 10^3/uL (0.0-0.50); EOS % 4.4 % (0.0-3.0); HEMATOCRIT 41.8 % (42.0-52.0); LYMPH # 1.6 10^3/uL (1.5-4.5); LYMPH % 15.2 % (24.0-44.0); MEAN CORPUSCULAR HEMOGLOBIN 27.7 pg (27.0-33.0); MEAN CORPUSCULAR HGB CONC 31.1 g/dl (32.0-36.5); MEAN CORPUSCULAR VOLUME 88.9 fl (80.0-96.0); MONO # 0.9 10^3/uL (0.0-0.8); NEUTROPHILS # 7.7 10^3/uL (1.8-7.7); NEUTROPHILS % 71.4 % (36.0-66.0); PLATELET COUNT, AUTOMATED 291 10^3/uL (150-450); WHITE BLOOD COUNT 10.7 10^3/uL (4.0-10.0)
[2019-05-29 16:40] LABS: INR 1.03; PROTHROMBIN TIME 13.2 SECONDS (11.8-14.0)
[2019-05-29 16:41] LABS: PARTIAL THROMBOPLASTIN TIME 30.5 SECONDS (25.0-38.4)
[2019-05-29 17:06] LABS: ALBUMIN 3.4 GM/DL (3.2-5.2); ALT/SGPT 22 U/L (12-78); BILIRUBIN,DIRECT 0.1 MG/DL (0.0-0.2); BILIRUBIN,TOTAL 0.5 MG/DL (0.2-1.0); BLOOD UREA NITROGEN 16 MG/DL (7-18); CALCIUM LEVEL 9.4 MG/DL (8.8-10.2); CARBON DIOXIDE LEVEL 33 MEQ/L (21-32); CHLORIDE LEVEL 104 MEQ/L (98-107); CREATININE FOR GFR 0.95 MG/DL (0.70-1.30); GLOMERULAR FILTRATION RATE > 60.0 (>35); GLUCOSE, FASTING 75 MG/DL (70-100); POTASSIUM SERUM 4.3 MEQ/L (3.5-5.1); SODIUM LEVEL 141 MEQ/L (136-145); TOTAL PROTEIN 6.8 GM/DL (6.4-8.2)
--- NOTE | 2019-05-29 17:23 | REP ---
A PA and lateral chest: Comparison is 01/16/2019. Lung mares are clear. The previous a slight blunting of the right costophrenic angle has resolved. Cardiac size is normal. The [place] and mediastinum are unchanged. The patient has had percutaneous catheter aortic valve replacement. This is unchanged. There is a dual-chamber pacemaker, unchanged. Impression: There are no acute cardiopulmonary findings. Electronically Signed by Royer Doshi MD 05/29/2019 05:15 P
[2019-05-29 17:30] VITALS: BP 132/64
== END 2019-05-29 17:56 | disposition home or self-care (01) ==
LOC: M ED 15:30
DX: R53.1 Weakness (principal); K52.9 Noninfective gastroenteritis and colitis, unspecified; E11.9 Type 2 diabetes mellitus without complications; I12.9 Hypertensive chronic kidney disease with stage 1 through stage 4 chronic kidney disease, or unspecified chronic kidney disease; N18.9 Chronic kidney disease, unspecified; E78.5 Hyperlipidemia, unspecified; Z79.899 Other long term (current) drug therapy; Z79.82 Long term (current) use of aspirin; Z79.02 Long term (current) use of antithrombotics/antiplatelets; Z88.0 Allergy status to penicillin; Z91.018 Allergy to other foods; Z87.891 Personal history of nicotine dependence

== ENCOUNTER 2019-08-01 10:36 | Emergency (ER) | payer MEDICARE, OTHER ==
[~2019-08-01] VITALS: Ht 177.8 cm; Wt 73.6 kg
[~2019-08-01 10:36] MED LIST changes: +CHOL100029 PO; -VITAD1000T PO
[2019-08-01] MEDS ORDERED: NS 1,000 ML IV SCH (10:41)
[2019-08-01 11:06] LABS: VENOUS BASE EXCESS 6.9 (-2.0-2.0); VENOUS HCO3 34.8 MEQ/L (23.0-27.0); VENOUS O2 SATURATION 53.5 % (60.0-80.0); VENOUS PARTIAL PRESSURE CO2 63.1 mmHg (38.0-50.0); VENOUS PARTIAL PRESSURE O2 29.1 mmHg (30.0-50.0); VENOUS PH 7.359 UNITS (7.330-7.430); VENOUS STANDARD HCO3 29.5 MEQ/L; VENOUS TOTAL CO2 36.7 MEQ/L (24.0-28.0)
[2019-08-01 11:11] LABS: BASO # 0.1 10^3/uL (0.0-0.2); BASO % 0.7 % (0.0-1.0); EOS # 0.5 10^3/uL (0.0-0.5); EOS % 4.3 % (0.0-3.0); HEMOGLOBIN 14.3 g/dl (13.5-17.5); LYMPH # 0.9 10^3/uL (1.5-5.0); LYMPH % 8.2 % (24.0-44.0); MEAN CORPUSCULAR HEMOGLOBIN 27.7 pg (27.0-33.0); MEAN CORPUSCULAR HGB CONC 31.1 g/dl (32.0-36.5); MONO # 0.8 10^3/uL (0.0-0.8); MONO % 7.5 % (0.0-5.0); NEUTROPHILS # 8.8 10^3/uL (1.5-8.5); NEUTROPHILS % 78.9 % (36.0-66.0); PLATELET COUNT, AUTOMATED 354 10^3/uL (150-450); RED BLOOD COUNT 5.17 10^6/uL (4.30-6.10); WHITE BLOOD COUNT 11.1 10^3/uL (4.0-10.0)
--- NOTE | 2019-08-01 11:32 | REP ---
CHEST, SINGLE VIEW: Single view of the chest is performed. There is mild chronic interstitial prominence which is stable. No acute infiltrate or pulmonary edema is seen. The heart is normal in size. There is mild calcification of the thoracic aorta. The mediastinal silhouette is unchanged. Left dual lead pacemaker is again noted. IMPRESSION: Stable chronic findings without acute infiltrate. Electronically Signed by Royer Munguia MD 08/02/2019 10:09 A
[2019-08-01 11:50] LABS: ALBUMIN 3.3 GM/DL (3.2-5.2); ALT/SGPT 17 U/L (12-78); BILIRUBIN,DIRECT < 0.1 MG/DL (0.0-0.2); BILIRUBIN,TOTAL 0.7 MG/DL (0.2-1.0); BLOOD UREA NITROGEN 18 MG/DL (7-18); CALCIUM LEVEL 9.7 MG/DL (8.8-10.2); CARBON DIOXIDE LEVEL 32 MEQ/L (21-32); CHLORIDE LEVEL 101 MEQ/L (98-107); CK-MB VALUE MASS 3.2 NG/ML (<3.6); CPK CREATINE PHOSPHOKINASE 148 U/L (39-308); CREATININE FOR GFR 0.95 MG/DL (0.70-1.30); GLOMERULAR FILTRATION RATE > 60.0 (>35); GLUCOSE, FASTING 211 MG/DL (70-100); MB/CK RELATIVE INDEX 2.16 (< OR =4); POTASSIUM SERUM 5.4 MEQ/L (3.5-5.1); SODIUM LEVEL 140 MEQ/L (136-145); THYROID STIMULATING HORMONE 0.908 uIU/ML (0.358-3.740); TOTAL PROTEIN 7.3 GM/DL (6.4-8.2); TROPONIN I < 0.02 NG/ML (< 0.10)
--- NOTE | 2019-08-01 12:31 | ECGEPIP ---
[facility] - ED Test Date: 2019-08-01 Pat Name: RADHA LOVE Department: Room: - Gender: Male Sound Controller: JAna : 1935 Requested By: Myriam Mckenna Order Number: [id number] Reading MD: Nikita Church Measurements Intervals [place] Rate: 84 P: 81 [place]: 240 QRS: -80 QRSD: 181 T: 80 QT: 456 QTc: 539 Interpretive Statements ELECTRONIC VENTRICULAR PACEMAKER SIMILAR TO 02/02/19 Electronically Signed on 08-01-2019 12:31:26 EDT by Nikita Church
[2019-08-01 13:48] LABS: OSMOLALITY SERUM 302 MOSM/KG (280-301)
[2019-08-01] MEDS ORDERED: NS 500 ML IV ONE (15:00)
[2019-08-01] MEDS ORDERED: CIPR-249 PO (17:26)
[2019-08-01] MEDS ORDERED: CIPROFLOXACIN 500 MG TAB PO ONE (17:30)
[2019-08-01 17:50] VITALS: BP 156/67
== END 2019-08-01 18:01 | disposition home or self-care (01) ==
LOC: EDBD 10:36 → M ED 10:36
DX: N39.0 Urinary tract infection, site not specified (principal); E11.9 Type 2 diabetes mellitus without complications; I11.0 Hypertensive heart disease with heart failure; I50.9 Heart failure, unspecified; N18.9 Chronic kidney disease, unspecified; E78.5 Hyperlipidemia, unspecified; M48.00 Spinal stenosis, site unspecified; Z79.899 Other long term (current) drug therapy; Z79.82 Long term (current) use of aspirin; Z79.02 Long term (current) use of antithrombotics/antiplatelets; Z88.0 Allergy status to penicillin; Z91.018 Allergy to other foods; Z87.891 Personal history of nicotine dependence

== ENCOUNTER 2019-08-25 14:00 | Emergency (ER) | payer MEDICARE, OTHER ==
[~2019-08-25] VITALS: Ht 177.8 cm; Wt 74.6 kg
[~2019-08-25 14:00] MED LIST changes: +CIPR-249 PO
[2019-08-25 14:02] VITALS: BP 142/64
[2019-08-25 15:25] LABS: BASO # 0.1 10^3/uL (0.0-0.2); BASO % 0.7 % (0.0-1.0); EOS # 0.4 10^3/uL (0.0-0.5); EOS % 3.1 % (0.0-3.0); HEMATOCRIT 42.5 % (42.0-52.0); HEMOGLOBIN 12.9 g/dl (13.5-17.5); LYMPH # 1.4 10^3/uL (1.5-5.0); LYMPH % 11.3 % (24.0-44.0); MEAN CORPUSCULAR HEMOGLOBIN 27.1 pg (27.0-33.0); MEAN CORPUSCULAR HGB CONC 30.4 g/dl (32.0-36.5); MEAN CORPUSCULAR VOLUME 89.3 fl (80.0-96.0); MONO # 0.8 10^3/uL (0.0-0.8); MONO % 6.5 % (0.0-5.0); NEUTROPHILS # 9.5 10^3/uL (1.5-8.5); NEUTROPHILS % 78.1 % (36.0-66.0); PLATELET COUNT, AUTOMATED 302 10^3/uL (150-450); RED BLOOD COUNT 4.76 10^6/uL (4.30-6.10); WHITE BLOOD COUNT 12.1 10^3/uL (4.0-10.0)
[2019-08-25 15:43] LABS: BLOOD UREA NITROGEN 23 MG/DL (7-18); C REACTIVE PROTEIN QUANTITATIV 0.85 MG/DL (0.00-0.30); CALCIUM LEVEL 9.3 MG/DL (8.8-10.2); CARBON DIOXIDE LEVEL 35 MEQ/L (21-32); CHLORIDE LEVEL 103 MEQ/L (98-107); CREATININE FOR GFR 1.19 MG/DL (0.70-1.30); GLOMERULAR FILTRATION RATE > 60.0 (>35); GLUCOSE, FASTING 373 MG/DL (70-100); POTASSIUM SERUM 4.7 MEQ/L (3.5-5.1); SODIUM LEVEL 142 MEQ/L (136-145); URIC ACID 5.1 MG/DL (3.5-7.2)
[2019-08-25 15:47] LABS: ERYTHROCYTE SEDIMENTATION RATE 32 mm/hr (0-20)
--- NOTE | 2019-08-25 16:39 | REP ---
Left knee four views: There are no comparisons. There is demineralization. There is no joint space narrowing, osteophytic growth per. There is chondrocalcinosis suggestive of CPPD. There is no joint effusion. There is extensive calcified atheroma in the popliteal artery. Impression: Chondrocalcinosis suggestive of CPPD. Demineralization. Otherwise, negative left knee. Electronically Signed by Royer Doshi MD 08/25/2019 04:31 P
== END 2019-08-25 17:56 | disposition home or self-care (01) ==
LOC: M ED 14:00
DX: M11.262 Other chondrocalcinosis, left knee (principal); E11.9 Type 2 diabetes mellitus without complications; G70.00 Myasthenia gravis without (acute) exacerbation; J45.909 Unspecified asthma, uncomplicated; I10 Essential (primary) hypertension; Z95.0 Presence of cardiac pacemaker; Z88.0 Allergy status to penicillin; Z91.013 Allergy to seafood; Z79.82 Long term (current) use of aspirin; Z79.899 Other long term (current) drug therapy

== ENCOUNTER 2019-11-04 14:10 | Emergency (ER) | payer MEDICARE, OTHER ==
[2019-11-04 14:46] LABS: BASO # 0.1 10^3/uL (0.0-0.2); BASO % 0.5 % (0.0-1.0); EOS # 0.1 10^3/uL (0.0-0.5); EOS % 0.9 % (0.0-3.0); HEMATOCRIT 42.1 % (42.0-52.0); HEMOGLOBIN 12.6 g/dl (13.5-17.5); LYMPH # 1.1 10^3/uL (1.5-5.0); LYMPH % 9.5 % (24.0-44.0); MEAN CORPUSCULAR HEMOGLOBIN 25.9 pg (27.0-33.0); MEAN CORPUSCULAR HGB CONC 29.9 g/dl (32.0-36.5); MEAN CORPUSCULAR VOLUME 86.6 fl (80.0-96.0); MONO # 0.7 10^3/uL (0.0-0.8); MONO % 6.6 % (0.0-5.0); NEUTROPHILS # 9.3 10^3/uL (1.5-8.5); NEUTROPHILS % 82.1 % (36.0-66.0); PLATELET COUNT, AUTOMATED 332 10^3/uL (150-450); RED BLOOD COUNT 4.86 10^6/uL (4.30-6.10); WHITE BLOOD COUNT 11.3 10^3/uL (4.0-10.0)
[2019-11-04 15:16] LABS: BLOOD UREA NITROGEN 15 MG/DL (7-18); CALCIUM LEVEL 9.2 MG/DL (8.8-10.2); CARBON DIOXIDE LEVEL 31 MEQ/L (21-32); CHLORIDE LEVEL 106 MEQ/L (98-107); CK-MB VALUE MASS 2.9 NG/ML (<3.6); CPK CREATINE PHOSPHOKINASE 73 U/L (39-308); CREATININE FOR GFR 1.07 MG/DL (0.70-1.30); GLOMERULAR FILTRATION RATE > 60.0 (>35); GLUCOSE, FASTING 169 MG/DL (70-100); MB/CK RELATIVE INDEX 3.97 (< OR =4); NT-PRO BNP 2448 PG/ML (<450); POTASSIUM SERUM 4.1 MEQ/L (3.5-5.1); SODIUM LEVEL 143 MEQ/L (136-145); TROPONIN I < 0.02 NG/ML (< 0.10)
[2019-11-04] MEDS ORDERED: VITA100066 PO (15:28)
[2019-11-04] MEDS ORDERED: BETA115CR TOP (15:28)
[2019-11-04] MEDS ORDERED: ACET-683 PO (15:28)
[2019-11-04] MEDS ORDERED: FUROSEMIDE 40 MG/4 ML VIAL (J1940) IV ONE (15:30)
[2019-11-04] MEDS ORDERED: LANTINJ4 SC ×2 (15:30)
[2019-11-04] MEDS ORDERED: CARB15DR33 OU (15:30)
[2019-11-04] MEDS ORDERED: ATOR40TA75 PO (15:31)
[2019-11-04 16:54] VITALS: BP 169/72
[2019-11-04 16:56] VITALS: O2SAT 93
--- NOTE | 2019-11-04 19:03 | ECGEPIP ---
[facility] - ED Test Date: 2019-11-04 Pat Name: RADHA LOVE Department: Room: - Gender: Male Forensic Science Examiner: BRANDONANNA : 1935 Requested By: Nikita Carroll Order Number: [id number] Reading MD: Sanjiv Zuniga Measurements Intervals [place] Rate: 84 P: 89 [place]: 289 QRS: -44 QRSD: 117 T: -79 QT: 392 QTc: 464 Interpretive Statements UNCERTAIN IRREGULAR RHYTHM Nonspecific ST-T wave abnormalities ELECTRONIC VENTRICULAR PACEMAKER -- CONTOUR ANALYSIS BASED ON INTRINSIC RHYTHM Electronically Signed on 11-04-2019 19:02:54 EST by Sanjiv Zuniga
--- NOTE | 2019-11-05 10:31 | REP ---
REASON: Dyspnea on exertion. COMPARISON: Multiple, the latest 08/01/2019. The technique utilized in obtaining the radiograph has magnified the cardiac silhouette and accentuated the interstitial markings. The cardiomediastinal silhouette is unchanged. The dual chamber bipolar pacemaker device is unchanged. The intracardiac device is unchanged. The lung mares are clear and stable. There is no change in the osseous structures. IMPRESSION: Stable chest without evidence of acute cardiopulmonary disease. Electronically Signed by Jorge Infante DO 11/05/2019 11:45 A
== END 2019-11-04 17:22 | disposition home or self-care (01) ==
LOC: EDBD 14:10 → M ED 14:10
DX: I50.32 Chronic diastolic (congestive) heart failure (principal); E11.9 Type 2 diabetes mellitus without complications; I11.0 Hypertensive heart disease with heart failure; N18.2 Chronic kidney disease, stage 2 (mild); E78.9 Disorder of lipoprotein metabolism, unspecified; G70.00 Myasthenia gravis without (acute) exacerbation; Z95.0 Presence of cardiac pacemaker; Z79.899 Other long term (current) drug therapy; Z79.82 Long term (current) use of aspirin; Z79.4 Long term (current) use of insulin; Z88.0 Allergy status to penicillin; Z91.018 Allergy to other foods

== ENCOUNTER 2019-11-05 15:19 | Inpatient (IN) | payer MEDICARE, OTHER ==
[~2019-11-05] VITALS: Ht 177.8 cm; Wt 68.2 kg
[~2019-11-05 15:19] MED LIST changes: +ACET-683 PO; +ATOR40TA75 PO; +BETA115CR TOP; +CARB15DR33 OU; +VITA100066 PO
[2019-11-05 16:19] LABS: BASO # 0.1 10^3/uL (0.0-0.2); BASO % 0.5 % (0.0-1.0); EOS # 0.1 10^3/uL (0.0-0.5); HEMOGLOBIN 12.3 g/dl (13.5-17.5); LYMPH % 7.4 % (24.0-44.0); MEAN CORPUSCULAR HEMOGLOBIN 25.6 pg (27.0-33.0); MEAN CORPUSCULAR VOLUME 85.4 fl (80.0-96.0); NEUTROPHILS # 11.8 10^3/uL (1.5-8.5); NEUTROPHILS % 83.8 % (36.0-66.0); PLATELET COUNT, AUTOMATED 339 10^3/uL (150-450); WHITE BLOOD COUNT 14.1 10^3/uL (4.0-10.0)
[2019-11-05] MEDS ORDERED: NS 250 ML IV ONE (16:30)
[2019-11-05 16:54] LABS: ALBUMIN 2.9 GM/DL (3.2-5.2); ALT/SGPT 19 U/L (12-78); BILIRUBIN,DIRECT 0.3 MG/DL (0.0-0.2); BILIRUBIN,TOTAL 0.4 MG/DL (0.2-1.0); BLOOD UREA NITROGEN 25 MG/DL (7-18); CARBON DIOXIDE LEVEL 31 MEQ/L (21-32); CHLORIDE LEVEL 107 MEQ/L (98-107); CK-MB VALUE MASS 2.6 NG/ML (<3.6); CPK CREATINE PHOSPHOKINASE 89 U/L (39-308); CREATININE FOR GFR 1.29 MG/DL (0.70-1.30); FREE T4 1.27 NG/DL (0.76-1.46); GLOMERULAR FILTRATION RATE 56.2 (>35); GLUCOSE, FASTING 179 MG/DL (70-100); LIPASE 97 U/L (73-393); MAGNESIUM LEVEL 1.9 MG/DL (1.8-2.4); MB/CK RELATIVE INDEX 2.92 (< OR =4); POTASSIUM SERUM 4.4 MEQ/L (3.5-5.1); SODIUM LEVEL 144 MEQ/L (136-145); TOTAL PROTEIN 6.7 GM/DL (6.4-8.2); TROPONIN I < 0.02 NG/ML (< 0.10)
[2019-11-05 19:50] VITALS: BP 100/76
[2019-11-05 19:56] LABS: INR 1.07; PROTHROMBIN TIME 13.6 SECONDS (11.8-14.0)
[2019-11-05] MEDS ORDERED: MECLIZINE 25 MG TABLET PO PRN (20:45)
[2019-11-05] MEDS ORDERED: GLUCOSE 4 GM CHEW TABLET PO PRN (21:00)
[2019-11-05] MEDS: LEVEMIR (INSULIN DETEMIR) 1 UNITS/0.01ML SC SCH (21:00)
[2019-11-05] MEDS ORDERED: GLUCAGON FOR INJ 1 MG VIAL (J1610) SC PRN (21:00)
[2019-11-05] MEDS ORDERED: DEXTROSE 50% 50 ML SYRINGE IV PRN (21:00)
[2019-11-05 21:34] LABS: HEMOGLOBIN A1c 7.3 %
--- NOTE | 2019-11-05 21:43 | HPEPDOC ---
General Date of Admission Nov 05, 2019 at 18:49 Date of Service: Nov 05, 2019 Chief Complaint The patient is a 84-year-old male admitted with a reason for visit of Dizziness. Source: Patient, RN/, Old records History of Present Illness Patient is an 84 year old male with a PMHx of Chronic Diastolic CHF, COPD, Hx of TAVR, Hx of Complete heart block s/p Dual chamber PM, HTN, DM2, DLP, Myasthenia gravis, Severe spinal stenosis, CKD3, Neuropathy, Thorac vertrebra compression fracture, who presented to the ER with complaints of dizziness and weakness of his neck which causes his head to flop forward. He is unable to hold it up for any prolonged periods of time. This is his second visit to ER in 2 days. This is his 10th ED visit this year and second admission. His frequency of ED visits has really increased since last year. Patient says he has been dizzy for more than 6 months but worst in last 2 months. He becomes dizzy when he stands up and starts walking. He denies any associated tinnitus or fullness of his ears or spinning of the room or nausea or vomiting. He says he is very weak. He cannot hold up his head for any period of time it flops down to his chest. He denies any neck pain or stiffness. He also reports diarrhea 2 to 3 times per day which is chronic without any abdominal pain, nauea or vomiitng. He has not noticed any blood in it. He is also complaining of memory issues. Says he has difficulty remembering things sometimes. He cannot remember where his phone or wallet is . He has been looking for then all weekend. He still drives. He says he simply cannot by himself at home any more. Says has not eaten all day today. He does tell me he will be moving to [place] on November 16 to live with his son. Home Medications Scheduled Amlodipine Besylate (Amlodipine Besylate) 2.5 Mg Tab, 2.5 MG PO DAILY, (Reported) Ascorbic Acid (Vitamin C) 500 Mg Cap, 500 MG PO DAILY, (Reported) Aspirin (Aspirin EC) 81 Mg Tab, 81 MG PO DAILY, (Reported) Atorvastatin Calcium (Atorvastatin Calcium) 40 Mg Tablet, 20 MG PO DAILY, (Reported) Cholecalciferol (Vitamin D3) (Vitamin D3) 1,000 Unit Tablet, 2,000 UNIT PO DAILY, (Reported) Clopidogrel Bisulfate (Plavix) 75 Mg Tab, 75 MG PO DAILY, (Reported) Insulin Glargine,Hum.rec.anlog (Lantus Solostar) 100 Unit/1 Ml Insuln.pen, 10 UNITS SC QAM, (Reported) Insulin Glargine,Hum.rec.anlog (Lantus Solostar) 100 Unit/1 Ml Insuln.pen, 35 UN ITS SC QHS, (Reported) Lisinopril (Lisinopril) 10 Mg Tab, 5 MG PO DAILY, (Reported) Multivitamin/Iron/Folic Acid (Certavite-Antioxidant Tablet) 1 Tab Tab, 1 TAB PO DAILY, (Reported) [place]-3 Fatty Acids/Fish Oil (Fish Oil 1,000 mg Capsule) 1,000 Mg Cap, 1,000 MG PO DAILY, (Reported) Pyridostigmine [place] (Pyridostigmine [place]) 60 Mg Tab, 60 MG PO TID, (Repo rted) Scheduled PRN Acetaminophen (Acetaminophen) 500 Mg Tablet, 500 MG PO Q4H PRN for PAIN, (Reported) Betamethasone Racheal (Betamethasone Valerate) 15 Gm Cream..g., 1 APLCT TOP BID PRN for ITCHING, (Reported) apply to affected area(s) Carboxymethylcellulose Sodium (Artificial Tears) 15 Ml Drops, 1 DROP OU QID PRN for DRY EYES, (Reported) Meclizine HCl (Meclizine HCl) 25 Mg Tab, 25 MG PO TID PRN for DIZZINESS, (Reported) Allergies Coded Allergies: Penicillins (Verified Allergy, Severe, anaphylaxis, 05/29/19) shellfish derived (Verified Allergy, Severe, anaphylaxis, 05/29/19) Past Medical History Medical History Degenerative, calcific aortic valve disease with severe aortic stenosis. Status post TAVR by Dr. Ilana Argueta at [facility] in [place], [address] [place] [address] 2017. CHB/ Dual chamber pacemaker 11/12/17 Dr Parada. Right bundle branch block. Systemic hypertension/HHD/Diastolic CHF. Hyperlipidemia. Myasthenia gravis. IDDM. History of basal cell Ca of the skin as well as deep squamous cell Ca. Actinic keratosis. Carotid atherosclerosis with carotid duplex ultrasound 08/11/2011 identifying 50-69% category narrowing on the right and less than 50% narrowing on the left. Diabetic neuropathy. Stress urinary incontinence. Prostate cancer status post prostatectomy, 1991. Vitamin B12 deficiency. Bilateral cataracts. Colonic polyps. 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 Family History Siblings: "old age" Children: 3 Alive, well Social History * Smoker: former Smoker (Tobacco use: 2-3ppd x 50 years quit 2011) Alcohol: Denies Drugs: denies A-FIB/CHADSVASC A-FIB History Current/History of A-Fib/PAF?: No Review of Systems Constitutional: Reports: Weakness, Fatigue; Denies: Chills, Fever, Night Sweats Eyes: Denies: Pain, Vision change ENT: Denies: Head Aches, Ear Pain, Dysphagia Skin: Denies: Rash, Lesions, Breakdown Pulmonary: Denies: Dyspnea, Cough Cardiovascular: Reports: Lt Headedness; Denies: Chest Pain, Palpitations, Orthopnea, Paroxysmal Noc. Dyspnea Gastrointestinal: Reports: Diarrhea (2 to 3 times a day); Denies: Nausea, Vomiting, Abdominal Pain Hematologic: Denies: Bruising, Bleeding Excessively Musculoskeletal: Denies: Neck Pain, Back Pain, Joint Pain, Muscle Pain, Spasms Neurological: Reports: Weakness, Confusion Psych: Reports: Anxiety, Depression, Memory Issues Physical Examination General Exam: Positive: Alert, Cooperative, No Acute Distress Eye Exam: Positive: PERRLA, Conjunctiva & lids normal, EOMI; Negative: Sclera icteric ENT Exam: Positive: Atraumatic, Mucous membr. moist/pink, Pharynx Normal Neck Exam: Positive: Supple; Negative: JVD, thyromegaly Chest Exam: Positive: Clear to auscultation, Normal air movement Heart Exam: Positive: Rate Normal, Regular Rhythm, Normal S1, Normal S2; Negative: Murmurs, Rubs Telemetry: Positive: No significant arrhythmia, Other Telemetry: (paced) Abdomen Exam: Positive: Normal bowel sounds, Soft; Negative: Tenderness, Hepatospenomegaly Extremity Exam: Positive: Normal pulses; Negative: Clubbing, Cyanosis, Edema Skin Exam: Positive: Nl turgor and temperature; Negative: Breakdown, Lesion Neuro Exam: Positive: Normal Speech, Strength at 5/5 X4 ext, Other (DTRs 1+ in the upper extremities. ) Psych Exam: Positive: Anxiety, Oriented x 3 Vital Signs Vital Signs Date Time Temp Pulse Resp B/P (MAP) Pulse Ox O2 Delivery O2 Flow Rate FiO2 11/05/19 19:31 69 18 121/62 (81) 11/05/19 18:00 96 11/05/19 17:45 Room Air 11/05/19 15:24 96.4 Laboratory Data Labs 24H Laboratory Tests 2 11/05/19 15:56: Immature Granulocyte % (Auto) 0.3, Neutrophils (%) (Auto) 83.8H, Lymphocytes (%) (Auto) 7.4L, Monocytes (%) (Auto) 7.0H, Eosinophils (%) (Auto) 1.0, Basophils (%) (Auto) 0.5, Neutrophils # (Auto) 11.8H, Lymphocytes # (Auto) 1.0L, Monocytes # (Auto) 1.0H, Eosinophils # (Auto) 0.1, Basophils # (Auto) 0.1, Nucleated Red Blood Cells % (auto) 0.0, Anion Gap 6L, Glomerular Filtration Rate 56.2, Calcium Level 9.0, Magnesium Level 1.9, Total Bilirubin 0.4, Direct Bilirubin 0.3H, Aspartate Amino Transf (AST/SGOT) 26, Alanine Aminotransferase (ALT/SGPT) 19, Alkaline Phosphatase 81, Total Creatine Kinase 89, Creatine Kinase MB 2.6, Creat ine Kinase MB Relative Index 2.92, Troponin I < 0.02, Total Protein 6.7, Albumin 2.9L, Albumin/Globulin Ratio 0.76L, Lipase 97, Thyroid Stimulating Hormone (TSH) 1.520, Free Thyroxine 1.27 11/05/19 19:19: Prothrombin Time 13.6, Prothromb Time International Ratio 1.07, Activated Partial Thromboplast Time 26.0 CBC/BMP Laboratory Tests 11/05/19 15:56 Assessment/Plan Patient is an 84 year old male with a PMHx of Chronic Diastolic CHF, COPD, Hx of TAVR, Hx of Complete heart block s/p Dual chamber PM, HTN, DM2, DLP, Myasthenia gravis, Severe spinal stenosis, CKD3, Neuropathy, Thorac vertrebra compression fracture, who presented to the ER with complaints of dizziness and weakness of his neck which causes his head to flop forward. He is unable to hold it up for any prolonged periods of time. Dizziness this is probably due to orthostatic hypotension Had Carotid US in 2018 showed less than 50% blockage bilaerally WIll get PT evaluate for vestibular apparatus PT/OT/PFS paitient will need home care . May even need placement Neck weakness No dysphagia or dysarthria, will get CT cervical spine This could be due to progresson of myaesthenia gravis. Chronic back pain Due to T12 compression fracture and severe spinal stenosis. Leukocytosis I do not see any source of infection. His CXR is chronic changes, he does not have any GI or symptoms. UA has been ordered COPD continue spiriva and albuterol prn CKD3 creatinine at baseline Chronic Diastolic CHF - no evidence of exacerbation - ECHO 03/2018: EF 60-65%, G1DD, Mild-moderate pulmonary HTN - Does not take any diuretics as an outpatient Hx of TAVR / CAD - c/w ASA, Plavix Hx of Complete heart block s/p Dual chamber PM HTN - BP well controlled with orthosttic changes positve will stop Lisinopril and amlodipine for now DM2 with neuropathy - Will give lower dose of levemir - Has been eating meals despite reporting a poor appetite - c/w ISS DLP -c/w [place] 3 fatty acids and statin Myasthenia gravis c/w Pyridostigmine Chronic diarrhea, will not give any stool softners Plan / VTE VTE Prophylaxis Ordered?: Yes ROGERIO HERNANDEZ MD Nov 05, 2019 21:43
--- NOTE | 2019-11-05 22:02 | REPVR ---
PROCEDURE INFORMATION: Exam: CT Cervical Spine Without Contrast Exam date and time: 11/05/2019 9:36 PM Age: 84 years old Clinical indication: Neck pain; Additional info: Neck weakness. TECHNIQUE: Imaging protocol: Computed tomography images of the cervical spine without contrast. Radiation optimization: All CT scans at this facility use at least one of these dose optimization techniques: automated exposure control; mA and/or kV adjustment per patient size (includes targeted exams where dose is matched to clinical indication); or iterative reconstruction. COMPARISON: CT Spine,cervical w/o contrast 11/23/2018 2:48 PM FINDINGS: Vertebrae: Minimal anterior spondylolisthesis of C4 on C5 which is a stable finding in comparison to 11/23/2018 CT. Diffuse degeneration of the uncovertebral and facet joints. C2-C3: No spinal stenosis. No neural foraminal narrowing. C3-C4: No spinal stenosis. No neural foraminal narrowing. C4-C5: No disc herniation. No spinal stenosis. No neural foraminal narrowing. C5-C6: No spinal stenosis. Mild left neural foraminal narrowing. C6-C7: Moderate spinal stenosis due to degeneration of the vertebral body endplates and calcification of the posterior longitudinal ligament. Mild to moderate right neural foraminal narrowing. C7-T1: Moderate spinal stenosis due to endplate degeneration and calcification of the posterior longitudinal ligament. Moderate to severe left neural foraminal narrowing due to degeneration of the uncovertebral joint likely compressing the exiting left C8 nerve root. Soft tissues: No prevertebral soft tissue swelling. Vasculature: Extensive atherosclerosis. Lungs: Lung apices are clear. IMPRESSION: No acute fracture or dislocation cervical spine. There is narrowing of the left neural foramen at the C7-T1 level which could affect the left C8 nerve root. There is spinal canal stenosis at the C6-7 and C7-T1 levels which could affect the cervical spinal cord although spinal canal detail is limited on a noncontrast CT. Electronically signed by: Joanne Cavazos On 11/05/2019 22:01:48 PM
[2019-11-05] MEDS: PYRIDOSTIGMINE 60 MG TAB PO SCH (22:13)
[2019-11-05] MEDS: HEPARIN SOD (PORCINE) 5000 UNITS/ML VIAL SC SCH (22:14)
[2019-11-06 05:50] VITALS: BP 164/57
[2019-11-06 05:55] LABS: BASO # 0.1 10^3/uL (0.0-0.2); BASO % 0.7 % (0.0-1.0); EOS # 0.4 10^3/uL (0.0-0.5); HEMATOCRIT 42.8 % (42.0-52.0); HEMOGLOBIN 12.4 g/dl (13.5-17.5); LYMPH # 1.3 10^3/uL (1.5-5.0); LYMPH % 14.3 % (24.0-44.0); MEAN CORPUSCULAR HEMOGLOBIN 25.1 pg (27.0-33.0); MEAN CORPUSCULAR VOLUME 86.6 fl (80.0-96.0); MONO # 0.8 10^3/uL (0.0-0.8); MONO % 8.5 % (0.0-5.0); NEUTROPHILS # 6.8 10^3/uL (1.5-8.5); NEUTROPHILS % 72.2 % (36.0-66.0); PLATELET COUNT, AUTOMATED 338 10^3/uL (150-450); RED BLOOD COUNT 4.94 10^6/uL (4.30-6.10); WHITE BLOOD COUNT 9.4 10^3/uL (4.0-10.0)
[2019-11-06 06:14] VITALS: BP 164/57
[2019-11-06 06:16] VITALS: BP 136/53
[2019-11-06 06:18] VITALS: BP 117/45
[2019-11-06 06:20] LABS: BLOOD UREA NITROGEN 23 MG/DL (7-18); CALCIUM LEVEL 9.2 MG/DL (8.8-10.2); CARBON DIOXIDE LEVEL 31 MEQ/L (21-32); CHLORIDE LEVEL 107 MEQ/L (98-107); CREATININE FOR GFR 0.96 MG/DL (0.70-1.30); GLOMERULAR FILTRATION RATE > 60.0 (>35); GLUCOSE, FASTING 156 MG/DL (70-100); POTASSIUM SERUM 3.3 MEQ/L (3.5-5.1); SODIUM LEVEL 143 MEQ/L (136-145)
[2019-11-06] MEDS ORDERED: POTASSIUM CHLORIDE 10 MEQ SR TABLET PO ONE (06:45)
[2019-11-06] MEDS: HumaLOG INSULIN (NovoLOG) PER UNIT SC SCH ×4 (07:30→17:30)
--- NOTE | 2019-11-06 08:35 | ECGEPIP ---
[facility] - ED Test Date: 2019-11-05 Pat Name: RADHA LOVE Department: Room: - Gender: Male Cst: kvng : 1935 Requested By: Nikita Carroll Order Number: [id number] Reading MD: Nikita Church Measurements Intervals [place] Rate: 79 P: -43 [place]: 198 QRS: -87 QRSD: 188 T: 82 QT: 489 QTc: 561 Interpretive Statements ELECTRONIC ATRIAL PACEMAKER ELECTRONIC VENTRICULAR PACEMAKER SIMILAR TO 11/04/19 Electronically Signed on 11-06-2019 8:34:58 EST by Niktia Church
--- NOTE | 2019-11-06 08:41 | REP ---
REASON: Dyspnea and chest pain. COMPARISON: The latest prior 12/05/2018. The technique utilized in obtaining the radiograph has magnified the cardiac silhouette and accentuated the interstitial markings. The cardiac silhouette is magnified by technique. There is mild cardiomegaly. The dual chamber bipolar pacemaker device and intracardiac device are unchanged. The lung mares are stable showing no acute patchy parenchymal opacity or pleural effusion. The osseous structures are unchanged. IMPRESSION:Chronic changes as described above without evidence of acute cardiopulmonary disease. Electronically Signed by Jorge Infante DO 11/10/2019 04:30 P
--- NOTE | 2019-11-06 08:49 | REP ---
REASON: Dizziness. I can not access the prior for comparison due to a [employer] malfunction. There is ventricular and sulcal dilatation consistent with the patient's age of 84 years. There is no shift in the midline structures. Mild diffuse lucency is seen throughout the deep cerebral white matter. This is a lucency in the right cerebellar hemisphere. There is no evidence of an acute intracranial hemorrhagic or nonhemorrhagic event. 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 Electronically Signed by Jorge Infante DO 11/10/2019 04:32 P
--- NOTE | 2019-11-06 08:58 | IPNPDOC ---
Subjective Date Seen The patient was seen on 11/06/19. Subjective Chief Complaint/HPI Says he does not know what he is going to do. he lost his car keys, his wallet. His mind is not right he cannot think any more. His neck is very weak and asks me if there is anything could be done for it. i asked if he was going to [place] he says he does not know. He has 3 sons other 2 are in [place] and [place] he does not know what he is going to do. Denies any dizziness now but has not been out of bed yet. No fever or chills, no chest pain or sob. Objective Physical Examination General Exam: Positive: Alert, Cooperative, No Acute Distress Eye Exam: Positive: PERRLA, Conjunctiva & lids normal, EOMI; Negative: Sclera icteric ENT Exam: Positive: Atraumatic, Mucous membr. moist/pink, Pharynx Normal Neck Exam: Positive: Supple; Negative: JVD, thyromegaly Chest Exam: Positive: Clear to auscultation, Normal air movement Heart Exam: Positive: Rate Normal, Regular Rhythm, Normal S1, Normal S2; Negative: Murmurs, Rubs Telemetry: Positive: No significant arrhythmia, Other Telemetry: (paced) Abdomen Exam: Positive: Normal bowel sounds, Soft; Negative: Tenderness, Hepatospenomegaly Extremity Exam: Positive: Normal pulses; Negative: Clubbing, Cyanosis, Edema Skin Exam: Positive: Nl turgor and temperature; Negative: Breakdown, Lesion Neuro Exam: Positive: Normal Speech, Strength at 5/5 X4 ext, Other (DTRs 1+ in the upper extremities. ) Psych Exam: Positive: Anxiety, Oriented x 3 Assessment /Plan Assessment Patient is an 84 year old male with a PMHx of Chronic Diastolic CHF, COPD, Hx of TAVR, Hx of Complete heart block s/p Dual chamber PM, HTN, DM2, DLP, Myasthenia gravis, Severe spinal stenosis, CKD3, Neuropathy, Thorac vertrebra compression fracture, who presented to the ER with complaints of dizziness and weakness of his neck which causes his head to flop forward. He is unable to hold it up for any prolonged periods of time. Dizziness this is probably due to orthostatic hypotension Had Carotid US in 2018 showed less than 50% blockage bilaterally WIll get PT evaluate for vestibular apparatus PT/OT/PFS patient will need home care . May even need placement Neck weakness No dysphagia or dysarthria, CT cervical spine noted with degenerative changes, spinal canal stenosis and compression of C8 nerve root. There is spinal canal stenosis at the C6-7 and C7- T1 levels which could affect cord signal intensity could see in non contrast CT. This could be due to progression of myaesthenia gravis. will consult neurology. Chronic back pain Due to T12 compression fracture and severe spinal stenosis. Leukocytosis I do not see any source of infection. His CXR is chronic changes, he does not have any GI or symptoms. UA has been ordered It has resolved. COPD continue spiriva and albuterol prn CKD3 creatinine at baseline Chronic Diastolic CHF - no evidence of exacerbation - ECHO 03/2018: EF 60-65%, G1DD, Mild-moderate pulmonary HTN - Does not take any diuretics as an outpatient Hx of TAVR / CAD - c/w ASA, Plavix Hx of Complete heart block s/p Dual chamber PM HTN - BP well controlled with orthostatic changes positve will stop Lisinopril and amlodipine for now DM2 with neuropathy - Will give lower dose of levemir - Has been eating meals despite reporting a poor appetite - c/w ISS DLP -c/w [place] 3 fatty acids and statin Myasthenia gravis c/w Pyridostigmine Chronic diarrhea, will not give any stool softners Plan/VTE VTE Prophylaxis Ordered?: Yes VS, I&O, 24H, Fishbone Vital Signs/I&O Vital Signs Date Time Temp Pulse Resp B/P (MAP) Pulse Ox O2 Delivery O2 Flow Rate FiO2 11/06/19 06:18 83 117/45 (69) 11/06/19 05:50 98.0 16 94 Room Air I&O- Last 24 Hours up to 6 AM 11/06/19 06:00 Intake Total 530 ml Output Total 30 ml Balance 500 ml Laboratory Data 24H LABS Laboratory Tests 2 11/05/19 15:56: Immature Granulocyte % (Auto) 0.3, Neutrophils (%) (Auto) 83.8H, Lymphocytes (%) (Auto) 7.4L, Monocytes (%) (Auto) 7.0H, Eosinophils (%) (Auto) 1.0, Basophils (%) (Auto) 0.5, Neutrophils # (Auto) 11.8H, Lymphocytes # (Auto) 1.0L, Monocytes # (Auto) 1.0H, Eosinophils # (Auto) 0.1, Basophils # (Auto) 0.1, Nucleated Red Blood Cells % (auto) 0.0, Anion Gap 6L, Glomerular Filtration Rate 56.2, Estimated Mean Plasma Glucose 163H, Hemoglobin A1c 7.3, Calcium Level 9.0, Magnesium Level 1.9, Total Bilirubin 0.4, Direct Bilirubin 0.3H, Aspartate Amino Transf (AST/SGOT) 26, Alanine Aminotransferase (ALT/SGPT) 19, Alkaline Phosphatase 81, Total Creatine Kinase 89, Creatine Kinase MB 2.6, Creatine Kinase MB Relative Index 2.92, Troponin I < 0.02, Total Protein 6.7, Albumin 2.9L, Albumin/Globulin Ratio 0.76L, Lipase 97, Thyroid Stimulating Hormone (TSH) 1.520, Free Thyroxine 1.27 11/05/19 19:19: Prothrombin Time 13.6, Prothromb Time International Ratio 1.07, Activated Partial Thromboplast Time 26.0 11/05/19 21:24: Bedside Glucose (Misc Panel) 138H 11/06/19 05:34: Immature Granulocyte % (Auto) 0.3, Neutrophils (%) (Auto) 72.2H, Lymphocytes (%) (Auto) 14.3L, Monocytes (%) (Auto) 8.5H, Eosinophils (%) (Auto) 4.0H, Basophils (%) (Auto) 0.7, Neutrophils # (Auto) 6.8, Lymphocytes # (Auto) 1.3L, Monocytes # (Auto) 0.8, Eosinophils # (Auto) 0.4, Basophils # (Auto) 0.1, Nucleated Red Blood Cells % (auto) 0.0, Anion Gap 5L, Glomerular Filtration Rate > 60.0, Calcium Level 9.2 CBC/BMP Laboratory Tests 11/05/19 15:56 11/06/19 05:34 ROGERIO HERNANDEZ MD Nov 06, 2019 08:58
[2019-11-06] MEDS: HEPARIN SOD (PORCINE) 5000 UNITS/ML VIAL SC SCH ×2 (09:55→22:41)
[2019-11-06] MEDS: PYRIDOSTIGMINE 60 MG TAB PO SCH ×3 (09:55→22:42)
[2019-11-06] MEDS: ATORVASTATIN 20 MG TAB PO SCH (09:55)
[2019-11-06] MEDS: CLOPIDOGREL 75 MG TAB PO SCH (09:55)
[2019-11-06] MEDS: ASPIRIN 81 MG ENTERIC TAB PO SCH (09:55)
[2019-11-06] MEDS: LEVEMIR (INSULIN DETEMIR) 1 UNITS/0.01ML SC SCH ×2 (09:56→22:41)
[2019-11-06 14:00] VITALS: BP 132/49
[2019-11-06 22:31] VITALS: BP 161/66
[2019-11-07] VITALS (9 sets, daily range): BP systolic 120–168; BP diastolic 46–76
[2019-11-07 07:24] LABS: BASO # 0.1 10^3/uL (0.0-0.2); BASO % 0.6 % (0.0-1.0); EOS # 0.5 10^3/uL (0.0-0.5); EOS % 6.5 % (0.0-3.0); HEMATOCRIT 44.3 % (42.0-52.0); HEMOGLOBIN 12.7 g/dl (13.5-17.5); LYMPH # 1.3 10^3/uL (1.5-5.0); LYMPH % 16.4 % (24.0-44.0); MEAN CORPUSCULAR HEMOGLOBIN 25.1 pg (27.0-33.0); MEAN CORPUSCULAR HGB CONC 28.7 g/dl (32.0-36.5); MEAN CORPUSCULAR VOLUME 87.7 fl (80.0-96.0); MONO # 0.8 10^3/uL (0.0-0.8); MONO % 9.4 % (0.0-5.0); NEUTROPHILS # 5.3 10^3/uL (1.5-8.5); NEUTROPHILS % 66.7 % (36.0-66.0); PLATELET COUNT, AUTOMATED 325 10^3/uL (150-450); RED BLOOD COUNT 5.05 10^6/uL (4.30-6.10)
[2019-11-07] MEDS: HumaLOG INSULIN (NovoLOG) PER UNIT SC SCH ×3 (07:30→17:12)
[2019-11-07 07:40] LABS: BLOOD UREA NITROGEN 19 MG/DL (7-18); CALCIUM LEVEL 8.9 MG/DL (8.8-10.2); CARBON DIOXIDE LEVEL 32 MEQ/L (21-32); CHLORIDE LEVEL 109 MEQ/L (98-107); CREATININE FOR GFR 0.83 MG/DL (0.70-1.30); GLOMERULAR FILTRATION RATE > 60.0 (>35); GLUCOSE, FASTING 85 MG/DL (70-100); POTASSIUM SERUM 3.7 MEQ/L (3.5-5.1); SODIUM LEVEL 146 MEQ/L (136-145)
[2019-11-07] MEDS: LEVEMIR (INSULIN DETEMIR) 1 UNITS/0.01ML SC SCH (09:00)
[2019-11-07] MEDS: PYRIDOSTIGMINE 60 MG TAB PO SCH ×3 (09:34→19:52)
[2019-11-07] MEDS: CLOPIDOGREL 75 MG TAB PO SCH (09:34)
[2019-11-07] MEDS: ASPIRIN 81 MG ENTERIC TAB PO SCH (09:34)
[2019-11-07] MEDS: HEPARIN SOD (PORCINE) 5000 UNITS/ML VIAL SC SCH ×2 (09:34→19:52)
[2019-11-07] MEDS: ATORVASTATIN 20 MG TAB PO SCH (09:34)
--- NOTE | 2019-11-07 12:11 | IPNPDOC ---
Subjective Date Seen The patient was seen on 11/07/19. Subjective Chief Complaint/HPI No complaints this am . Wants to go home. Says has things to do at home. No fever or chills. Continues to complain of neck weakness. Working with PT not cleared by PT. Objective Physical Examination General Exam: Positive: Alert, Cooperative, No Acute Distress Eye Exam: Positive: PERRLA, Conjunctiva & lids normal, EOMI; Negative: Sclera icteric ENT Exam: Positive: Atraumatic, Mucous membr. moist/pink, Pharynx Normal Neck Exam: Positive: Supple; Negative: JVD, thyromegaly Chest Exam: Positive: Clear to auscultation, Normal air movement Heart Exam: Positive: Rate Normal, Regular Rhythm, Normal S1, Normal S2; Negative: Murmurs, Rubs Telemetry: Positive: No significant arrhythmia, Other Telemetry: (paced) Abdomen Exam: Positive: Normal bowel sounds, Soft; Negative: Tenderness, Hepatospenomegaly Extremity Exam: Positive: Normal pulses; Negative: Clubbing, Cyanosis, Edema Skin Exam: Positive: Nl turgor and temperature; Negative: Breakdown, Lesion Neuro Exam: Positive: Normal Speech, Strength at 5/5 X4 ext, Other (DTRs 1+ in the upper extremities. ) Psych Exam: Positive: Anxiety, Oriented x 3 Assessment /Plan Assessment Patient is an 84 year old male with a PMHx of Chronic Diastolic CHF, COPD, Hx of TAVR, Hx of Complete heart block s/p Dual chamber PM, HTN, DM2, DLP, Myasthenia gravis, Severe spinal stenosis, CKD3, Neuropathy, Thorac vertrebra compression fracture, who presented to the ER with complaints of dizziness and weakness of his neck which causes his head to flop forward. He is unable to hold it up for any prolonged periods of time. Dizziness probably due to orthostatic hypotension Had Carotid US in 2018 showed less than 50% blockage bilaterally No vestibular dysfunction as per PT evaluation Though he does have significant cognitive impairment. PT/OT/PFS patient will need home care . May even need placement Neck weakness No dysphagia or dysarthria, CT cervical spine noted with degenerative changes, spinal canal stenosis and compression of C8 nerve root. There is spinal canal stenosis at the C6-7 and C7- T1 levels which could affect cord signal intensity could see in non contrast CT. will consult neurology. Cognitive impairment will need more support at home however patient still drives sowill not qualify for home services. Chronic back pain Due to T12 compression fracture and severe spinal stenosis. Leukocytosis I do not see any source of infection. His CXR is chronic changes, he does not have any GI or symptoms. UA has been ordered It has resolved. COPD continue spiriva and albuterol prn CKD3 creatinine at baseline Chronic Diastolic CHF - no evidence of exacerbation - ECHO 03/2018: EF 60-65%, G1DD, Mild-moderate pulmonary HTN - Does not take any diuretics as an outpatient Hx of TAVR / CAD - c/w ASA, Plavix Hx of Complete heart block s/p Dual chamber PM HTN - BP well controlled with orthostatic changes positve will stop Lisinopril and amlodipine for now DM2 with neuropathy - Will give lower dose of levemir - Has been eating meals despite reporting a poor appetite - c/w ISS DLP -c/w [place] 3 fatty acids and statin Myasthenia gravis c/w Pyridostigmine Chronic diarrhea, will not give any stool softners Plan/VTE VTE Prophylaxis Ordered?: Yes VS, I&O, 24H, Fishbone Vital Signs/I&O Vital Signs Date Time Temp Pulse Resp B/P (MAP) Pulse Ox O2 Delivery O2 Flow Rate FiO2 11/07/19 06:41 71 157/57 (90) 71 166/64 (98) 72 130/52 (78) 11/07/19 06:04 97.9 18 91 Room Air I&O- Last 24 Hours up to 6 AM 11/07/19 06:00 Intake Total 860 ml Output Total 0 ml Balance 860 ml Laboratory Data 24H LABS Laboratory Tests 2 11/06/19 16:33: Bedside Glucose (Misc Panel) 81L 11/06/19 22:29: Bedside Glucose (Misc Panel) 154H 11/07/19 07:01: Immature Granulocyte % (Auto) 0.4, Neutrophils (%) (Auto) 66.7H, Lymphocytes (%) (Auto) 16.4L, Monocytes (%) (Auto) 9.4H, Eosinophils (%) (Auto) 6.5H, Basophils (%) (Auto) 0.6, Neutrophils # (Auto) 5.3, Lymphocytes # (Auto) 1.3L, Monocytes # (Auto) 0.8, Eosinophils # (Auto) 0.5, Basophils # (Auto) 0.1, Nucleated Red Blood Cells % (auto) 0.0, Anion Gap 5L, Glomerular Filtration Rate > 60.0, Calcium Level 8.9 11/07/19 11:29: Bedside Glucose (Misc Panel) 242H CBC/BMP Laboratory Tests 11/07/19 07:01 ROGERIO HERNANDEZ MD Nov 07, 2019 12:11
[2019-11-07] MEDS ORDERED: CELL250C PO (15:16)
[2019-11-07] MEDS ORDERED: PYRI60TA2 PO (15:16)
[2019-11-08] VITALS (8 sets, daily range): BP systolic 120–200; BP diastolic 57–83
[2019-11-08 06:35] LABS: BASO # 0.1 10^3/uL (0.0-0.2); BASO % 0.8 % (0.0-1.0); EOS # 0.6 10^3/uL (0.0-0.5); HEMOGLOBIN 12.7 g/dl (13.5-17.5); LYMPH # 1.4 10^3/uL (1.5-5.0); LYMPH % 16.6 % (24.0-44.0); MEAN CORPUSCULAR HEMOGLOBIN 26.2 pg (27.0-33.0); MEAN CORPUSCULAR HGB CONC 30.2 g/dl (32.0-36.5); MEAN CORPUSCULAR VOLUME 86.8 fl (80.0-96.0); MONO # 0.8 10^3/uL (0.0-0.8); MONO % 8.9 % (0.0-5.0); NEUTROPHILS # 5.6 10^3/uL (1.5-8.5); NEUTROPHILS % 66.5 % (36.0-66.0); PLATELET COUNT, AUTOMATED 318 10^3/uL (150-450); RED BLOOD COUNT 4.84 10^6/uL (4.30-6.10); WHITE BLOOD COUNT 8.5 10^3/uL (4.0-10.0)
[2019-11-08 06:53] LABS: BLOOD UREA NITROGEN 18 MG/DL (7-18); CARBON DIOXIDE LEVEL 31 MEQ/L (21-32); CHLORIDE LEVEL 107 MEQ/L (98-107); CREATININE FOR GFR 0.98 MG/DL (0.70-1.30); GLOMERULAR FILTRATION RATE > 60.0 (>35); GLUCOSE, FASTING 179 MG/DL (70-100); POTASSIUM SERUM 3.7 MEQ/L (3.5-5.1); SODIUM LEVEL 144 MEQ/L (136-145)
[2019-11-08] MEDS: lisinopriL 5 MG TAB PO SCH (08:16)
[2019-11-08] MEDS: PYRIDOSTIGMINE 60 MG TAB PO SCH ×4 (08:17→22:14)
[2019-11-08] MEDS: HEPARIN SOD (PORCINE) 5000 UNITS/ML VIAL SC SCH ×2 (08:17→22:15)
[2019-11-08] MEDS: CLOPIDOGREL 75 MG TAB PO SCH (08:17)
[2019-11-08] MEDS: ASPIRIN 81 MG ENTERIC TAB PO SCH (08:17)
[2019-11-08] MEDS: ATORVASTATIN 20 MG TAB PO SCH (08:17)
[2019-11-08] MEDS: LEVEMIR (INSULIN DETEMIR) 1 UNITS/0.01ML SC SCH (08:18)
[2019-11-08] MEDS: HumaLOG INSULIN (NovoLOG) PER UNIT SC SCH ×3 (09:55→17:05)
[2019-11-08] MEDS: MYCOPHENOLATE MOFETIL 250 MG CAP (J7517) PO SCH ×2 (09:56→22:14)
--- NOTE | 2019-11-08 10:20 | IPNPDOC ---
Text Note Date of Service The patient was seen on 11/07/19. NOTE Pateint was transferred to PCU on 11/07/19 as there was some thoughts of sta rting him on prednisone for his worsening symptoms of Myaesthenia gravis and it is known to initially worsen respiratory status on starting prednisone so was sent for closer monitoring of respiratory status. However ultimately Neuro felt he did not need the steroids at this point. they uped his pyridostigmine and started him on cellcept which he was supposed to be on as per Dr Blackwell who is his outpatient neurologist . Though he had not followed up with neuro since november 2018. He was again down graded to medsurg later in the day. VS,[place], I+O VS, [place], I+O Laboratory Tests 11/08/19 05:51 Vital Signs Date Time Temp Pulse Resp B/P (MAP) Pulse Ox O2 Delivery O2 Flow Rate FiO2 11/08/19 09:30 150/80 (103) 11/08/19 07:35 98.0 70 18 91 Room Air I&O- Last 24 Hours up to 6 AM 11/08/19 06:00 Intake Total 1140 ml Output Total 0 ml Balance 1140 ml ROGERIO HERNANDEZ MD Nov 08, 2019 10:20
--- NOTE | 2019-11-08 12:51 | CR ---
DATE OF CONSULTATION: 11/07/2019 REASON FOR CONSULTATION: Neck flexion weakness. HISTORY OF PRESENTING ILLNESS The patient is an 84-year-old right-handed male with past medical history significant for seropositive acetylcholine receptor binding, nonthymomatous myasthenia gravis. The patient was last seen in the neurology clinic in November 2018 and did not return for followup, cancelling his future appointments. At that time, his myasthenia gravis was stable in remission while on CellCept 250 mg twice a day and continued use of pyridostigmine 60 mg twice a day. In this interval the patient somehow stopped using CellCept; he is unsure why. He has developed progressive weakness in the arms and legs and neck flexion weakness. He does not have any shortness of breath and his respiratory status is stable. The patient was transferred from [facility] to [address] [place] [address] due to fear that he could end up with respiratory depression if given prednisone. After evaluation, the patient was noted to have adequate strength with fatiguability of the upper and lower extremities and 4+ neck flexion weakness. The patient will be restarted on CellCept 250 mg twice a day and his pyridostigmine will be increased to 60 mg four times a day from the three times a day dosing. His CBC should be checked every 3 weeks to check for any neutropenia. REVIEW OF SYSTEMS Review of systems obtained and is negative except as per HPI. ALLERGIES: PENICILLIN, SHELLFISH. PRESENT MEDICATIONS - acetaminophen - betamethasone - artificial tears - meclizine - amlodipine - ascorbic acid - aspirin - atorvastatin - cholecalciferol - Plavix - insulin - lisinopril - multivitamin - omega 3 - pyridostigmine 60 mg by mouth four times a day FAMILY HISTORY: Noncontributory. SOCIAL HISTORY The patient is a former smoker. Does not use any alcohol or illicit drugs. PAST MEDICAL HISTORY: Calcific aortic valve with severe aortic stenosis, status post transcatheter aortic valve replacement (TAVR) October 2017 CHB plus dual chamber pacemaker October 2017. Right bundle branch block. Systemic hypertension. Diastolic congestive heart failure. Hyperlipidemia. Myasthenia gravis, nonthymomatous. Seropositive acetylcholine receptor binding. Insulin-dependent diabetes mellitus. History of basal-cell carcinoma of the skin as well as deep squamous cell carcinoma. Actinic keratosis. Carotid atherosclerosis. 50 to 69% narrowing on the right, less than 50% on the left. Diabetic polyneuropathy. Stress urinary incontinence. Prostate cancer, status post prostatectomy in 1991. Vitamin B12 deficiency. Bilateral cataract surgery. Colonic polyps. Chronic kidney disease (CKD), stage III T12 compression fracture. Severe lumbar spinal stenosis, moderate cervical spinal canal stenosis with foraminal stenosis. PHYSICAL EXAMINATION Blood pressure is 120/46, pulse rate is 67, respiratory rate is 20, oxygenation is 93% on room air. Temperature is 97.9 degrees Fahrenheit. Current height is 5 feet 10 inches. Current weight is 71.1 kg. The patient is awake, alert, oriented to person, place, time. The patient has pupils that are 2.5 mm, round, reactive to light. Extraocular movements are intact in all directions without diplopia. There is no bulbar weakness on examination. Tongue is midline. The patient has 4+ neck flexion weakness. Hearing is subjectively equal to finger rub. There is no pronator drift. Strength is 5- in bilateral triceps, biceps, deltoid with fatiguability. Bilateral iliopsoas are grade 4 plus. Quadriceps are 5/5, tibialis anterior 5/5. Sensory is intact to light touch in all four extremities. Deep tendon reflexes are reduced throughout. Coordination without any signs of gross ataxia, dysmetria. Gait is deferred. ASSESSMENT 84-year-old male with neck flexion weakness secondary to acetylcholine receptor seropositive nonthymomatous myasthenia gravis without acute exacerbation. The patient likely has progressive disease since being off of immunosuppression therapy. PLAN Restart CellCept 250 mg by mouth twice a day, continue CBC checks every 3 months, continue pyridostigmine, increase dosage to 60 mg by mouth four times a day. The patient will follow up in the [facility]rology clinic as scheduled. He has an appointment coming in January of 2020 if he stays in the local area. The patient states that he is likely moving to [place] to live with his son in the upcoming month. Continue supportive care. The patient has been deemed by physical to be stable and able to be discharged.
[2019-11-09 06:00] VITALS: BP_SYST 153; BP_SYST 156; BP_SYST 164; BP_DIAS 58; BP_DIAS 67; BP_DIAS 70
[2019-11-09 08:32] VITALS: BP 152/86
[2019-11-09] MEDS: ASPIRIN 81 MG ENTERIC TAB PO SCH (08:32)
[2019-11-09] MEDS: lisinopriL 5 MG TAB PO SCH (08:32)
[2019-11-09] MEDS: ATORVASTATIN 20 MG TAB PO SCH (08:32)
[2019-11-09] MEDS: CLOPIDOGREL 75 MG TAB PO SCH (08:32)
[2019-11-09] MEDS: MYCOPHENOLATE MOFETIL 250 MG CAP (J7517) PO SCH (08:32)
[2019-11-09] MEDS: PYRIDOSTIGMINE 60 MG TAB PO SCH (08:33)
[2019-11-09] MEDS: LEVEMIR (INSULIN DETEMIR) 1 UNITS/0.01ML SC SCH (08:33)
[2019-11-09] MEDS: HEPARIN SOD (PORCINE) 5000 UNITS/ML VIAL SC SCH (08:33)
[2019-11-09] MEDS: HumaLOG INSULIN (NovoLOG) PER UNIT SC SCH (08:34)
--- NOTE | 2019-11-09 12:01 | IPNPDOC ---
Text Note Date of Service The patient was seen on 11/09/19. NOTE Patient denies any suicidal ideas or thoughts this morning. He is optimistic about going home. Says his son in coming up form [place] to check his house and make sure every thing is ok. He says he feels better today and feels stronger. Wants to go home. Will dc sitter. VS,[place], I+O VS, [place], I+O Vital Signs Date Time Temp Pulse Resp B/P (MAP) Pulse Ox O2 Delivery O2 Flow Rate FiO2 11/09/19 08:32 152/86 11/09/19 06:00 75 79 11/08/19 22:00 96.8 18 93 Room Air I&O- Last 24 Hours up to 6 AM 11/09/19 06:00 Intake Total 1120 ml Output Total 0 ml Balance 1120 ml ROGERIO HERNANDEZ MD Nov 09, 2019 12:01
--- NOTE | 2019-11-09 12:39 | DS.PDOC ---
Discharge Summary General Date of Admission Nov 05, 2019 at 18:49 Date of Discharge 11/09/19 Discharge Summary PROCEDURES PERFORMED DURING STAY: [None]. DISCHARGE DIAGNOSES: Progressive Myasthenia gravis with neck flexion weakness secondary to acetylcholine receptor seropositive nonthymomatous myasthenia gravis Dizziness due to orthostatic hypotension Mild cognitive impairment SECONDARY DIAGNOSIS: Chronic Diastolic CHF, COPD, Hx of TAVR, Hx of Complete heart block s/p Dual chamber PM, HTN, DM2, DLP, Myasthenia gravis, Severe spinal stenosis, CKD3, Neuropathy, chronic Thoracic vertebral compression fracture, COMPLICATIONS/CHIEF COMPLAINT: Dizziness. HISTORY OF PRESENT ILLNESS: See history and physical HOSPITAL COURSE: Patient is an 84 year old male with a PMHx of Chronic Diastolic CHF, COPD, Hx of TAVR, Hx of Complete heart block s/p Dual chamber PM, HTN, DM2, DLP, Myasthenia gravis, Severe spinal stenosis, CKD3, Neuropathy, Thorac vertrebra compression fracture, who presented to the ER with complaints of dizziness and weakness of his neck which causes his head to flop forward. He is unable to hold it up for any prolonged periods of time. Pateint was evaluated by PT and cleared for home discharge. Dizziness probably due to orthostatic hypotension Had Carotid US in 2018 showed less than 50% blockage bilaterally No vestibular dysfunction as per PT evaluation Though he does have significant cognitive impairment. PT/OT/PFS patient will need home care . May even need placement Myasthenia gravis with neck flexion weakness secondary to acetylcholine receptor seropositive nonthymomatous myasthenia gravis without acute exacerbation. The patient likely has progressive disease since being off of immunosuppression therapy. c/w Pyridostigmine dose increased from tid to QID started on Cellcept. See by Dr Garcia. Neck weakness No dysphagia or dysarthria, Due to progressive Myasthenia gravis. CT cervical spine noted with degenerative changes, spinal canal stenosis and compression of C8 nerve root. There is spinal canal stenosis at the C6-7 and C7- T1 levels which could affect cord signal intensity could see in non contrast CT. will consult neurology. Cognitive impairment ideally a little support at home with home services would have been helpful however patient still drives so will not qualify for home services. there is a plan that he may move in with his son in [place] in november. Chronic back pain Due to chronic T12 compression fracture and severe spinal stenosis. Leukocytosis I do not see any source of infection. His CXR is chronic changes, he does not have any GI or symptoms. It has resolved. COPD continue spiriva and albuterol prn CKD3 creatinine at baseline Chronic Diastolic CHF - no evidence of exacerbation - ECHO 03/2018: EF 60-65%, G1DD, Mild-moderate pulmonary HTN - Does not take any diuretics as an outpatient Hx of TAVR / CAD - c/w ASA, Plavix Hx of Complete heart block s/p Dual chamber PM HTN - BP well controlled with orthostatic changes positve will stop Lisinopril and amlodipine for now DM2 with neuropathy - Will give lower dose of levemir - Has been eating meals despite reporting a poor appetite - c/w ISS DLP -c/w [place] 3 fatty acids and statin Chronic diarrhea, will not give any stool softeners DISCHARGE MEDICATIONS: Please see below. ALLERGIES: Please see below. PHYSICAL EXAMINATION ON DISCHARGE: VITAL SIGNS: Please see below. General Exam: Positive: Alert, Cooperative, No Acute Distress Eye Exam: Positive: PERRLA, Conjunctiva & lids normal, EOMI; Negative: Sclera icteric ENT Exam: Positive: Atraumatic, Mucous membr. moist/pink, Pharynx Normal Neck Exam: Positive: Supple; Negative: JVD, thyromegaly Chest Exam: Positive: Clear to auscultation, Normal air movement Heart Exam: Positive: Rate Normal, Regular Rhythm, Normal S1, Normal S2; Negative: Murmurs, Rubs Telemetry: Positive: No significant arrhythmia, Other Telemetry: (paced) Abdomen Exam: Positive: Normal bowel sounds, Soft; Negative: Tenderness, Hepatospenomegaly Extremity Exam: Positive: Normal pulses; Negative: Clubbing, Cyanosis, Edema Skin Exam: Positive: Nl turgor and temperature; Negative: Breakdown, Lesion Neuro Exam: Positive: Normal Speech, Strength at 5/5 X4 ext, Other (DTRs 1+ in the upper extremities. ) Psych Exam: Positive: Anxiety, Oriented x 3 LABORATORY DATA: Please see below. ACTIVITY: [As tolerated]. DIET: As tolerated DISPOSITION: 01 Home, Self-Care. DISCHARGE INSTRUCTIONS: [facility] [address] Garcia in 1 month ITEMS TO FOLLOWUP ON ON OUTPATIENT: CBC every 3 months while he is on cellcept. DISCHARGE CONDITION: [Stable]. TIME SPENT ON DISCHARGE: 35 minutes. Vital Signs/I&Os Vital Signs Date Time Temp Pulse Resp B/P (MAP) Pulse Ox O2 Delivery O2 Flow Rate FiO2 11/09/19 08:32 152/86 11/09/19 06:00 75 79 11/08/19 22:00 96.8 18 93 Room Air I&O- Last 24 Hours up to 6 AM 11/09/19 06:00 Intake Total 1120 ml Output Total 0 ml Balance 1120 ml Laboratory Data Labs 24H Laboratory Tests 2 11/08/19 17:01: Bedside Glucose (Misc Panel) 140H 11/08/19 20:09: Bedside Glucose (Misc Panel) 136H 11/09/19 07:01: Bedside Glucose (Misc Panel) 145H FSBS Laboratory Tests Test 11/08/19 17:01 11/08/19 20:09 11/09/19 07:01 Range/Units Bedside Glucose (Misc Panel) 140 136 145 83-110 MG/DL Discharge Medications Scheduled Ascorbic Acid (Vitamin C) 500 Mg Cap, 500 MG PO DAILY, (Reported) Aspirin (Aspirin EC) 81 Mg Tab, 81 MG PO DAILY, (Reported) Atorvastatin Calcium (Atorvastatin Calcium) 40 Mg Tablet, 20 MG PO DAILY, (Reported) Cholecalciferol (Vitamin D3) (Vitamin D3) 1,000 Unit Tablet, 2,000 UNIT PO DAILY, (Reported) Clopidogrel Bisulfate (Plavix) 75 Mg Tab, 75 MG PO DAILY, (Reported) Insulin Glargine,Hum.rec.anlog (Lantus Solostar) 100 Unit/1 Ml Insuln.pen, 10 UNITS SC QAM, (Reported) Insulin Glargine,Hum.rec.anlog (Lantus Solostar) 100 Unit/1 Ml Insuln.pen, 35 UNITS SC QHS, (Reported) Lisinopril (Lisinopril) 10 Mg Tab, 5 MG PO DAILY, (Reported) Multivitamin/Iron/Folic Acid (Certavite-Antioxidant Tablet) 1 Tab Tab, 1 TAB PO DAILY, (Reported) Mycophenolate Mofetil (Cellcept) 250 Mg Capsule, 1 CAP PO BID [place]-3 Fatty Acids/Fish Oil (Fish Oil 1,000 mg Capsule) 1,000 Mg Cap, 1,000 MG PO DAILY, (Reported) Pyridostigmine [place] (Pyridostigmine [place]) 60 Mg Tab, 60 MG PO QID Scheduled PRN Acetaminophen (Acetaminophen) 500 Mg Tablet, 500 MG PO Q4H PRN for PAIN, (Reported) Betamethasone Racheal (Betamethasone Valerate) 15 Gm Cream..g., 1 APLCT TOP BID PRN for ITCHING, (Reported) apply to affected area(s) Carboxymethylcellulose Sodium (Artificial Tears) 15 Ml Drops, 1 DROP OU QID PRN for DRY EYES, (Reported) Meclizine HCl (Meclizine HCl) 25 Mg Tab, 25 MG PO TID PRN for DIZZINESS, (Reported) Allergies Coded Allergies: Penicillins (Verified Allergy, Severe, anaphylaxis, 05/29/19) shellfish derived (Verified Allergy, Severe, anaphylaxis, 05/29/19) ROGERIO HERNANDEZ MD Nov 09, 2019 12:39
== END 2019-11-09 11:50 | disposition home or self-care (01) | DRG 312 ==
LOC: M ED 15:19 → M ED INP 18:49 → M MS5PR 19:55 → M PCU 11-07 14:28 → M MSPAV 11-08 11:02
PROVIDERS: ADMIT Internal Medicine Nephrology; ATTEND Internal Medicine Nephrology
DX: I95.1 Orthostatic hypotension (principal); I50.32 Chronic diastolic (congestive) heart failure; M48.54XA Collapsed vertebra, not elsewhere classified, thoracic region, initial encounter for fracture; E11.51 Type 2 diabetes mellitus with diabetic peripheral angiopathy without gangrene; I11.0 Hypertensive heart disease with heart failure; N18.3 Chronic kidney disease, stage 3 (moderate); G70.00 Myasthenia gravis without (acute) exacerbation; Z95.0 Presence of cardiac pacemaker; Z79.899 Other long term (current) drug therapy; Z79.82 Long term (current) use of aspirin; Z79.4 Long term (current) use of insulin; Z88.0 Allergy status to penicillin; Z91.018 Allergy to other foods; J44.9 Chronic obstructive pulmonary disease, unspecified; R19.7 Diarrhea, unspecified; E78.5 Hyperlipidemia, unspecified; Z85.46 Personal history of malignant neoplasm of prostate; E53.8 Deficiency of other specified B group vitamins; Z87.891 Personal history of nicotine dependence; L57.0 Actinic keratosis

== ENCOUNTER 2019-12-07 12:43 | Emergency (ER) | payer OTHER, MEDICARE ==
[~2019-12-07] VITALS: Ht 177.8 cm; Wt 72.7 kg
[~2019-12-07 12:43] MED LIST changes: +CELL250C PO
[2019-12-07] MEDS ORDERED: PYRI60TA2 PO (14:12)
[2019-12-07] MEDS ORDERED: MYCO250C PO (14:12)
[2019-12-07] MEDS ORDERED: VITAD1000T PO (14:12)
[2019-12-07] MEDS ORDERED: SPIR1CAP INH (14:12)
[2019-12-07] MEDS ORDERED: LISI-542 PO (14:12)
[2019-12-07] MEDS ORDERED: KP F1200 PO (14:12)
[2019-12-07 14:14] LABS: BASO # 0.1 10^3/uL (0.0-0.2); BASO % 0.6 % (0.0-1.0); EOS # 0.1 10^3/uL (0.0-0.5); EOS % 0.9 % (0.0-3.0); HEMATOCRIT 41.6 % (42.0-52.0); HEMOGLOBIN 12.9 g/dl (13.5-17.5); MEAN CORPUSCULAR HEMOGLOBIN 26.5 pg (27.0-33.0); MEAN CORPUSCULAR VOLUME 85.6 fl (80.0-96.0); MONO # 0.8 10^3/uL (0.0-0.8); MONO % 7.9 % (0.0-5.0); NEUTROPHILS # 8.3 10^3/uL (1.5-8.5); NEUTROPHILS % 80.2 % (36.0-66.0); PLATELET COUNT, AUTOMATED 284 10^3/uL (150-450); RED BLOOD COUNT 4.86 10^6/uL (4.30-6.10); WHITE BLOOD COUNT 10.3 10^3/uL (4.0-10.0)
[2019-12-07 16:30] VITALS: BP 177/75
--- NOTE | 2019-12-08 20:18 | ECGEPIP ---
[facility] - ED Test Date: 2019-12-07 Pat Name: RADHA LOVE Department: Room: - Gender: Male Prescriptionist: : [id number] Requested By: KAMAR No Order Number: [id number] Reading MD: Myriam Mckenna Measurements Intervals [place] Rate: 69 P: 122 FL: 193 QRS: -84 QRSD: 194 T: 85 QT: 491 QTc: 529 Interpretive Statements ELECTRONIC ATRIAL PACEMAKER ELECTRONIC VENTRICULAR PACEMAKER ABNORMAL RHYTHM ECG Electronically Signed on 12-08-2019 20:18:15 EST by Myriam Mckenna
== END 2019-12-07 17:01 | disposition home or self-care (01) ==
LOC: M ED 12:43 → EDBD 12:43 → M ED 17:01
DX: F33.9 Major depressive disorder, recurrent, unspecified (principal); G70.00 Myasthenia gravis without (acute) exacerbation; I95.1 Orthostatic hypotension; E11.9 Type 2 diabetes mellitus without complications; I50.9 Heart failure, unspecified; N18.3 Chronic kidney disease, stage 3 (moderate); E78.5 Hyperlipidemia, unspecified; Z79.899 Other long term (current) drug therapy; Z79.82 Long term (current) use of aspirin; Z79.4 Long term (current) use of insulin; Z79.01 Long term (current) use of anticoagulants; Z88.0 Allergy status to penicillin; Z91.018 Allergy to other foods